=== PATIENT | female | born 1950 | race Caucasian/White ===

== ENCOUNTER 2020-08-11 13:32 | Emergency (ER) | payer MEDICARE, SELFPAY ==
--- NOTE | ~2020-08-11 | XR_ITS ---
XR sacrum coccyx min 2V, XR lumbar spine min 4V 08/11/2020 15:06 Indication: Low back and tailbone pain after fall Procedure: 5 views lumbar spine and 3 views sacrum/coccyx Comparison: No prior studies for comparison. Findings: There is disc narrowing at L2-3, L3-4. There is moderate facet hypertrophy at L4-5 and L5-S 1. There is an age-indeterminate wedge compression fracture of T12. Sacral foramen are symmetric. No sacral fracture is identified. Impression: 1: Age-indeterminate wedge compression fracture of T12. 2: Moderate lumbar spondylosis. Reviewed, dictated and finalized at location A. Impression: 1: Age-indeterminate wedge compression fracture of T12. 2: Moderate lumbar spondylosis. Impression: 1: Age-indeterminate wedge compression fracture of T12. 2: Moderate lumbar spondylosis.
--- NOTE | ~2020-08-11 | CT_ITS ---
EXAMINATION: CT thoracic lumbar wo con DATE: 08/11/2020 15:27 INDICATION: Back pain after injury. TECHNIQUE: Computed tomography (CT) of the thoracic and lumbar spine was performed without intravenou s contrast. The dose-length product was 860.98 mGy-cm. Automated exposure control and iterative recon struction technique were employed. COMPARISON: lumbar spine series dated 08/12/2019 FINDINGS: There is an acute superior endplate compression fracture of T12 with approximately 20% loss of vertebral body height. There is mild additional thoracic and lumbar spondylosis with degenerative retrolisthesis at L2-3. There is moderate facet degenerative change of the mid and lower lumbar spin e. Visualized lung parenchyma is unremarkable. There is atherosclerosis. There are cholecystectomy cl ips. IMPRESSION: 1. Acute superior endplate compression fracture of T12 with approximately 20% loss of vertebral body height anteriorly. 2: Mild-moderate thoracic and lumbar spondylosis. Reviewed, dictated and finalized at location A. IMPRESSION: 1. Acute superior endplate compression fracture of T12 with approximately 20% l oss of vertebral body height anteriorly. 2: Mild-moderate thoracic and lumbar spondylosis.
[2020-08-11 14:19] VITALS: BP 135/72; PULSE 81; RESP 20; TEMP 36.3; O2SAT 98
--- NOTE | 2020-08-11 15:09 | ED.BACK ---
HPI - Back Pain/Injury General Chief Complaint: Back Pain/Injury Stated Complaint: BACK PAIN AFTER FALL Time Seen by Provider: 08/11/20 15:07 Source: patient Mode of arrival: ambulatory Limitations: no limitations History of Present Illness HPI Narrative: Patient is a 70-year-old female complaining of mid and lower back pain, 10 out of 10, dull, nonradiating, after she fell off her lawnmower while trying to get on it today. Patient states that she missed a step and she fell backwards. Patient denies any head, neck, chest, abdomen, hip or any extremity pain/injury. Denies any weakness or numbness. Denies any incontinence. Related Data Allergies Allergy/AdvReac Type Severity Reaction Status Date / Time No Known Allergies Allergy Verified 08/11/20 15:42 Review of Systems Review of Systems: All systems reviewed & are unremarkable except as noted in HPI and below Constitutional: Constitutional: Denies body ache(s), Denies chills, Denies excessive sweating, Denies fatigue, Denies fever(s), Denies headache(s), Denies lethargy, Denies malaise, Denies weakness and Denies weight loss Eyes: Eyes: Denies blurry vision, Denies change in vision and Denies loss of vision ENT: Denies dizziness, Denies ear discharge, Denies headache(s), Denies lip swelling, Denies epistaxis, Denies nasal congestion, Denies neck pain, Denies throat swelling and Denies tongue swelling Cardiovascular: Cardiovascular: Denies chest pain, Denies chest pain at rest, Denies chest pain with activity, Denies diaphoresis, Denies rapid heart rate, Denies edema, Denies irregular heart rhythm, Denies lightheadedness, Denies palpitations, Denies dyspnea and Denies dyspnea on exertion Respiratory: Respiratory: Denies chest congestion, Denies cough, Denies hemoptysis, Denies dyspnea and Denies dyspnea on exertion Gastrointestinal: Gastrointestinal: Denies abdominal pain, Denies melena, Denies hematochezia, Denies diarrhea, Denies nausea, Denies vomiting and Denies hematemesis Musculoskeletal: Musculoskeletal: Denies abnormal gait, Denies deformity, Denies joint swelling, Denies limited range of motion, Denies neck pain and Denies numbness Neurologic: Denies Abnormal speech present, Denies abnormal gait, Denies confusion, Denies dizziness, Denies headache(s), Denies focal weakness, Denies loss of vision, Denies numbness, Denies Other visual disturbances, Denies Sensory deficit (Neuro) and Denies weakness Psychiatric: Psychiatric: Denies confusion, Denies depression, Denies auditory hallucinations, Denies homicidal ideation and Denies suicidal ideation Endocrine: Endocrine: Denies cold intolerance, Denies excessive sweating, Denies fatigue, Denies heat intolerance and Denies palpitations Hematologic/Lymphatic: Hematologic/Lymphatic: Denies easy bleeding and Denies easy bruising Allergic/Immunologic: Allergic/Immunologic: Denies lip swelling, Denies throat swelling and Denies tongue swelling PMFSH Social History Social History Gender identity (if verbalized by the patient): Female Comments Past medical history: Hypertension, arthritis Family history: Non contributory Social history: Non-smoker no EtOH use, lives at home Exam Const: General: cooperative, healthy appearing, comfortable, no acute distress, well developed, alert and awake; No confusion Orientation/consciousness: oriented to person, oriented to place, oriented to time, patient oriented x3 and No confusion Limitations: no limitations HENMT: Head: normal to inspection, normocephalic and atraumatic Ears: hearing grossly normal bilaterally, TM normal on the right and TM normal on the left General nose exam: Normal external nose present, Normal nares present and No nasal discharge present Face and sinus: normal facial exam Mouth: Yes Normal oral and palatal mucosa present, Yes lip normal, Yes tongue normal and Yes oropharynx normal Throat: posterior oropharynx normal, tonsils normal and uvula midline Eyes: Ge
--- NOTE | 2020-08-11 15:21 | PC.NURSE ---
Pt in CT scan at this time.
[2020-08-11 15:34] VITALS: BP 149/66; PULSE 67; RESP 17; O2SAT 99
[2020-08-11] MEDS: diazePAM INJ (*CRX) 10 MG/2 ML SYRINGE 5 MG IM (15:40)
[2020-08-11] MEDS: KETOROLAC 30 MG/ML VIAL (*BKC) IM (15:40)
[2020-08-11] MEDS: HYDROmorphone HCL INJ (*CRX) 1 MG/ML SYR IM (15:40)
[2020-08-11 16:18] VITALS: BP 115/52; PULSE 65; RESP 17; O2SAT 93
[2020-08-11 17:12] VITALS: BP 136/64; PULSE 61; RESP 15; O2SAT 93
--- NOTE | 2020-08-11 18:00 | PC.NURSE ---
[facility] cancelled by s crew that arrived at ED - Truck has mechanical issues [facility] called accepted transfer to [facility] ETA 1hr Trip # [id number]
[2020-08-11 18:21] VITALS: BP 131/55; PULSE 64; RESP 15; O2SAT 94
--- NOTE | 2020-08-11 18:26 | PC.NURSE ---
New ETA for is 193
== END 2020-08-11 19:54 | disposition short-term general hospital (02) ==
PROVIDERS: Emergency Provider Emergency Medicine; PCP Internal Medicine
DX: S22.088A Other fracture of T11-T12 vertebra, initial encounter for closed fracture (principal); I10 Essential (primary) hypertension; M19.90 Unspecified osteoarthritis, unspecified site; M47.814 Spondylosis without myelopathy or radiculopathy, thoracic region; M47.816 Spondylosis without myelopathy or radiculopathy, lumbar region; W17.89XA Other fall from one level to another, initial encounter
CPT/HCPCS: 72110; 72128; 72131; 72220; 96372; 99284; 99285; J1170; J1885; J3360

== ENCOUNTER 2021-10-06 12:07 | Emergency (ER) | payer MEDICARE, SELFPAY ==
[2021-10-06 12:15] VITALS: BP 149/62; PULSE 64; RESP 18; TEMP 36.2; O2SAT 100
--- NOTE | 2021-10-06 12:27 | ED.SKABFB ---
HPI - Skin/Abscess/Foreign Bdy General Chief complaint: Skin/Abscess/Foreign Body Stated complaint: Insect Bite Rt Hand, Swelling, Pain,Itching Time Seen by Provider: 10/06/21 12:25 Source: patient, RN notes reviewed and old records reviewed Mode of arrival: ambulatory Limitations: no limitations History of Present Illness HPI narrative: 71-year-old female who presents to [facility] with complaints of wasp sting to her right hand which occurred on Tuesday. Patient has red inflamed tissue to dorsal right hand and wrist area which is warm to touch and is itchy. Patient states initially she made a paste of baking soda and water and applied to sting area on distal right middle finger. She reports that she has been applying hydrocortisone ointment to red inflamed tissue and has been taking Ibuprofen for her discomfort. Patient has not taken any Benadryl for the itching. Patient denies any trouble with her swallowing or with her breathing. MD complaint: insect bite/sting (wasp sting) Onset (ago): day(s) (2) Treatments prior to arrival: other (hydrocortisone and Ibuprofen) Related Data Home Medications Medication Instructions Recorded Confirmed lisinopril 20 mg tablet 20 mg DAILY 10/06/21 10/06/21 Allergies Allergy/AdvReac Type Severity Reaction Status Date / Time No Known Allergies Allergy Verified 10/06/21 12:23 Review of Systems Review of Systems: CONSTITUTIONAL: Denies fever, chills, or sweats. EYES: Denies visual changes, redness, or discharge. ENT: Denies rhinorrhea, congestion, sore throat, or otalgia. CARDIOVASCULAR: Denies chest pain, palpitations, or edema. RESPIRATORY: Denies cough or dyspnea. GASTROINTESTINAL: Denies abdominal pain, nausea, vomiting, or diarrhea. GENITOURINARY: Denies dysuria or hematuria. SKIN: Positive for redness, swelling and warmth to dorsal aspect of right hand and wrist with itching MUSCULOSKELETAL: Denies back pain, joint pain, or myalgia. NEUROLOGIC: Denies headache, numbness, or weakness. PSYCHIATRIC: Denies anxiety or depression. All systems reviewed & are unremarkable except as noted in HPI and below PMFSH Past Medical History Medical History (Updated 10/06/21 @ 13:57 by Kari Hernandez NP) Fracture of left elbow Hypertension Surgical History Surgical History (Updated 10/06/21 @ 13:58 by Kari Hernandez NP) H/O shoulder surgery right H/O Spinal surgery H/O: hysterectomy Social History Social History (Updated 10/06/21 @ 14:00 by Kari Hernandez NP) Smoking status: Never smoker Alcohol intake: current Alcohol use details: social Substance use type: does not use Living arrangements: with family Gender identity (if verbalized by the patient): Female Comments At time of signature, agree with nursing past medical, surgical, social and family history. There is no relevant family history pertinent to the presenting complaint Exam Narrative: GENERAL: Well-appearing, well-nourished, and in no acute distress.anxious HEAD: Normocephalic, atraumatic. EYES: PERRLA and EOMI. ENT: Nares clear, no rhinorrhea or epistaxis. Mucous membranes moist.TM's normal with good light reflex, throat pink with no lesions exudates or tonsil enlargment. NECK: Supple. no lymphadenopathy CHEST: Clear to auscultation. No respiratory distress.SAO2 100% on room air.no tachypnea noted HEART: Regular rate and rhythm. No murmur heard. Normal peripheral pulses. ABDOMEN: Soft, nontender, nondistended, normal active bowel sounds. EXTREMITIES: Normal range of motion. No edema. SKIN: Warm, dry, red swollen tissue to dorsal right hand extending from the distal fingers to tissue above wrist. Patient reports that hand feels tight with warmth and is itching. Patient has adequate circulation and sensation to right hand with strong right radial pulse. NEURO: No focal deficits. Alert and oriented x3. Course Course Level of Care: Express Care Visit Vital Signs Vital signs: Vital Signs Tem
== END 2021-10-06 13:00 | disposition home or self-care (01) ==
PROVIDERS: Emergency Provider Registered Nurse
DX: L03.113 Cellulitis of right upper limb (principal); T63.461A Toxic effect of venom of wasps, accidental (unintentional), initial encounter; I10 Essential (primary) hypertension
CPT/HCPCS: 99213; G0463

== ENCOUNTER 2022-01-24 11:57 | Emergency (ER) | payer MEDICARE, SELFPAY ==
--- NOTE | ~2022-01-24 | XR_ITS ---
EXAMINATION: XR chest 2V DATE: 01/24/2022 13:39 INDICATION: Cough and wheezing TECHNIQUE: PA and lateral views of the chest are obtained. COMPARISON: None available FINDINGS: The lungs are free of acute opacities. No pleural effusion or pneumothorax. The cardiomedia stinal silhouette is normal. There is moderate thoracic spondylosis. There is vertebroplasty change a t T12. Surgical clips in the right upper quadrant are likely from prior cholecystectomy. IMPRESSION: 1. No acute cardiopulmonary abnormality. Reviewed, dictated and finalized at location A. 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
[2022-01-24 12:57] VITALS: BP 124/69; PULSE 86; RESP 18; TEMP 36.6; O2SAT 97
--- NOTE | 2022-01-24 13:33 | ED.URI ---
HPI - URI/Sore Throat General Chief Complaint: Unspecified Stated Complaint: throat pain and swelling Source: patient Mode of arrival: ambulatory Limitations: no limitations History of Present Illness HPI Narrative: 71-year-old female presents to [facility] complaints of cold-like symptoms including cough, congestion and runny nose over the past week. Patient reports that she feels like the symptoms are improving 2 days ago but then noticed lymph node swelling to her neck region yesterday. Patient has not tried taking any [id number] medications for her symptoms. patient's recently had similar cold-like symptoms. MD elicited complaint: cough Onset (ago): week(s) (1) Able to tolerate fluids by mouth: Yes Treatments prior to arrival: none Related Data Home Medications Medication Instructions Recorded Confirmed lisinopril 20 mg tablet 20 mg DAILY 10/06/21 01/24/22 celecoxib 200 mg capsule 200 mg DAILY 01/24/22 01/24/22 Allergies Allergy/AdvReac Type Severity Reaction Status Date / Time No Known Allergies Allergy Verified 01/24/22 13:28 Review of Systems Constitutional: Constitutional: Denies chills, Denies fatigue, Denies fever(s) and Denies weakness ENT: Reports nasal congestion Comments: Runny nose, lymphadenopathy Cardiovascular: Cardiovascular: Denies chest pain Respiratory: Respiratory: Reports cough, Denies dyspnea and Denies wheezing Gastrointestinal: Gastrointestinal: Denies diarrhea, Denies nausea and Denies vomiting Integumentary/Breasts: Skin/Breast: Denies rash Allergic/Immunologic: Allergic/Immunologic: Denies throat swelling and Denies tongue swelling PMFSH Past Medical History Medical History Fracture of left elbow Hypertension Surgical History Surgical History H/O shoulder surgery right H/O Spinal surgery H/O: hysterectomy Social History Social History Smoking status: Never smoker Alcohol intake: current Alcohol use details: social Substance use type: does not use Gender identity (if verbalized by the patient): Female Comments At time of signature, I agree with nursing past medical, surgical, social and family history. There is no relevant family history pertinent to the presenting complaint. Exam Const: General: healthy appearing Nutritional Appearance: well nourished Orientation/consciousness: patient oriented x3 Limitations: no limitations HENMT: Face/Nose/Sinus: Normal external nose present Face and sinus: normal facial exam Mouth: Yes Normal oral and palatal mucosa present, Yes lip normal and Yes moist mucous membranes Throat: uvula midline Other: Anterior cervical lymphadenopathy noted Eyes: Conjunctivae: conjunctivae normal Neck: Neck: normal visual inspection and lymphadenopathy bilateral anterior cervical soft and tender Resp: Effort & Inspection: normal respiratory effort and not labored Auscultation: clear to auscultation bilaterally, no crackles, no rales and no rhonchi Cardio: Rate: regular rate Rhythm: regular rhythm Heart sounds: no murmurs Skin: General skin exam: normal color Rashes: no rashes Wounds: no wounds Neuro: General: patient oriented x3 Psych: Affect: normal affect Attitude: cooperative Course Course Level of Care: Express Care Visit Vital Signs Vital signs: Vital Signs Temperature 36.6 C 01/24/22 12:57 Pulse Rate 86 01/24/22 12:57 Respiratory Rate 18 01/24/22 12:57 Blood Pressure 124/69 01/24/22 12:57 Pulse Oximetry 97 01/24/22 12:57 Oxygen Delivery Room Air 01/24/22 12:57 Temperature 36.6 C 01/24/22 12:57 Pulse Rate 86 01/24/22 12:57 Respiratory Rate 18 01/24/22 12:57 Blood Pressure 124/69 01/24/22 12:57 Pulse Oximetry 97 01/24/22 12:57 Oxygen Delivery Room Air 01/24/22 12:57 MDM
== END 2022-01-24 14:26 | disposition home or self-care (01) ==
PROVIDERS: Emergency Provider Nurse Practitioner Family
DX: R59.1 Generalized enlarged lymph nodes (principal); I10 Essential (primary) hypertension
CPT/HCPCS: 71046; 99213; G0463

== ENCOUNTER 2022-09-03 14:30 | Emergency (ER) | payer MEDICARE, SELFPAY ==
--- NOTE | ~2022-09-03 | XR_ITS ---
XR lumbar spine 2-3V 09/03/2022 15:27 Indication: Low back pain for 3 weeks Procedure: 3 views lumbar spine Comparison: 08/11/2020 Findings: There is a wedge compression fracture of T12 treated with vertebroplasty. There is disc radha rowing at all lumbar levels. There is facet hypertrophy at L4-5 and L5-S1. There is degenerative retr olisthesis at L2-3. No acute fracture or traumatic malalignment. Impression: 1: Moderate-severe lumbar spondylosis. 2: Chronic wedge compression fracture of T12 treated with vertebroplasty. Reviewed, dictated and finalized at location [] Impression: 1: Moderate-severe lumbar spondylosis. 2: Chronic wedge compression fracture of T12 treated with vertebroplasty.
--- NOTE | ~2022-09-03 | XR_ITS ---
XR hip RT min 2V 09/03/2022 15:27 Indication: Right hip pain. Procedure: 3 views right hip Comparison: 05/14/2018 Findings: There is mild osteoarthritis of the right hip. No fracture, subluxation or dislocation. No significant soft tissue abnormality. No foreign bodies. Impression: 1: Mild osteoarthritis of the right hip. Reviewed, dictated and finalized at location [] Impression: 1: Mild osteoarthritis of the right hip.
[2022-09-03 14:52] VITALS: BP 122/88; PULSE 63; RESP 18; TEMP 36.7; O2SAT 100
--- NOTE | 2022-09-03 14:57 | ED.SKABFB ---
HPI - Skin/Abscess/Foreign Bdy General Chief complaint: Skin/Abscess/Foreign Body Stated complaint: skin irritation Time Seen by Provider: 09/03/22 14:57 Source: patient Mode of arrival: ambulatory Limitations: no limitations History of Present Illness HPI narrative: 72 yo F presents stating she had a test done by a provider that came to her house through [employer] insurance. states that he put a device on her fingers and toes and some readings were low. she recieved a letter that she may have peripheral vascular disease and should see her PCP for further evaluation. states that it is hard to get into her PCP so she called community health for a new one. when the [employer] person could not find a doctor for her to be seen by they told her to go to urgent care. Pt is not having any numbness/weakness, color or temp change to any of her extremities. Amublatory with steady gait. Does report though that she has been having R low back pain with radiation to R buttock and thigh. All systems reviewed and negative except as noted above. Related Data Home Medications Medication Instructions Recorded Confirmed lisinopril 20 mg tablet 20 mg DAILY 10/06/21 09/03/22 celecoxib 200 mg capsule 200 mg DAILY 01/24/22 09/03/22 cholecalciferol (vitamin D3) 25 25 mcg PO DAILY 09/03/22 09/03/22 mcg (1,000 unit) tablet diclofenac sodium 75 mg 75 mg PO BID PRN Pain 09/03/22 09/03/22 tablet,delayed release Allergies Allergy/AdvReac Type Severity Reaction Status Date / Time No Known Allergies Allergy Verified 09/03/22 15:16 Review of Systems Review of Systems: CONSTITUTIONAL: Denies fever, chills, or sweats. EYES: Denies visual changes, redness, or discharge. ENT: Denies rhinorrhea, congestion, sore throat, or otalgia. CARDIOVASCULAR: Denies chest pain, palpitations, or edema. RESPIRATORY: Denies cough or dyspnea. GASTROINTESTINAL: Denies abdominal pain, nausea, vomiting, or diarrhea. GENITOURINARY: Denies dysuria or hematuria. SKIN: Denies rash or itching. MUSCULOSKELETAL:Reports right-sided low back pain with radiation to right buttock and right thigh. NEUROLOGIC: Denies headache, numbness, or weakness. PSYCHIATRIC: Denies anxiety or depression. All other systems reviewed are negative, except as documented in HPI. [facility] Past Medical History Medical History Fracture of left elbow Hypertension Surgical History Surgical History H/O shoulder surgery right H/O Spinal surgery H/O: hysterectomy Social History Social History Smoking status: Never smoker Alcohol intake: current Alcohol use details: social Substance use type: does not use Living arrangements: with family Gender identity (if verbalized by the patient): Female Comments At time of signature, agree with nursing past medical, surgical, social and family history. There is no relevant family history pertinent to the presenting complaint. Exam Narrative: GENERAL: This is a well-nourished, well-developed patient, in no apparent distress. HEAD: normocephalic, atraumatic. EYES: PERRL. Sclera clear/white. Vision is grossly intact. EARS: External ears normal NOSE: External nose normal NECK: Neck supple, non-tender without lymphadenopathy, masses or thyromegaly. CARDIOVASCULAR: Regular rate and rhythm without murmurs, gallops, or rubs. RESPIRATORY: Clear to auscultation. Breath sounds equal bilaterally. No wheezes, rales, or rhonchi. SKIN: warm, Dry, intact with no suspicious lesions or rash, good texture and turgor. NEURO: awake, alert, and oriented to person, place and time. There were no obvious focal neurologic abnormalities. EXTREMITIES: No joint tenderness, effusion, or edema noted. l DP 2+bilateral BACK: Nontender without deformity. Right SI joint tenderness. Positive right straight leg raise. Lower e
== END 2022-09-03 15:56 | disposition home or self-care (01) ==
PROVIDERS: Emergency Provider Nurse Practitioner Family
DX: M54.41 Lumbago with sciatica, right side (principal); I10 Essential (primary) hypertension
CPT/HCPCS: 72100; 73502; 99214; G0463

== ENCOUNTER → 2022-11-02 12:42 | Outpatient (CLI) | payer MEDICARE, SELFPAY ==
--- NOTE | ~2022-11-02 | US_ITS ---
EXAMINATION: US retroperitoneal comp DATE: 11/02/2022 13:02 INDICATION: Abnormal kidney function tests TECHNIQUE: Multiple grayscale and Doppler ultrasound images of the kidneys were obtained. COMPARISON: None. FINDINGS: The right kidney measures 7.5 x 4.0 x 4.2 cm. The left kidney measures 8.8 x 3.4 x 4.3 cm. The kidneys demonstrate normal parenchymal echogenicity. There is cortical thinning of the kidneys. T here is no hydronephrosis. The bladder is normal. IMPRESSION: 1. Mild atrophy of the kidneys without hydronephrosis. Reviewed, dictated and finalized at location A.
== END ==
DX: R94.4 Abnormal results of kidney function studies (principal); N26.1 Atrophy of kidney (terminal)
CPT/HCPCS: 76770

== ENCOUNTER 2022-11-16 12:36 | Outpatient (CLI) | payer MEDICARE, SELFPAY ==
[2022-11-16 19:32] LABS: Anion Gap 9 mmol/L (8-16); Blood Urea Nitrogen 26 mg/dL (7-17); Calcium 9.5 mg/dL (8.4-10.2); Carbon Dioxide 29 mmol/L (22-30); Chloride 99 mmol/L (98-107); Estimated Glomerular Filt Rate 26; Glucose 96 mg/dL (65-110); Potassium 4.7 mmol/L (3.4-5.0); Sodium 137 mmol/L (137-145)
== END 2022-11-16 12:37 | disposition home or self-care (01) ==
PROVIDERS: PCP Emergency Medicine; Visit Provider Emergency Medicine
DX: M25.551 Pain in right hip (principal); I10 Essential (primary) hypertension
CPT/HCPCS: 36415; 80048

== ENCOUNTER → 2022-11-23 11:12 | Outpatient (CLI) | payer MEDICARE, SELFPAY ==
--- NOTE | ~2022-11-23 | MR_ITS ---
MRI of the right hip Clinical history: Pain Technique: Coronal T1-weighted, T2-weighted, and proton-density fat-sat images, and axial T1-weighted and proton-density fat-sat images were acquired through the pelvis. Coronal T2-weighted images and c oronal, axial, and sagittal proton-density fat-sat images were acquired through the right hip. Findings: There is no acute fracture or avascular necrosis of either hip. There is extensive high-gra de chondromalacia the right hip joint. There is extensive amorphous marrow edema in the superior aspe ct of the right femoral head. Moderate to large right hip joint effusion is present, nonspecific. The re is probable mild diffuse chondromalacia the left hip joint. No left hip joint effusion. Evaluation for labral tear is limited due to motion artifact. Visualized musculature about the pelvis and right hip is unremarkable. No muscle atrophy or edema clive ntified. No soft tissue mass or other fluid collection identified. No evidence for bursitis. IMPRESSION: Marrow edema in the right femoral head is presumably reactive due to underlying moderate degenerative joint disease. No fracture or avascular necrosis identified. Moderate to large right hip joint effusion, nonspecific. Consider joint aspiration as indicated, lexis cially if there is any suspicion for septic arthritis. Reviewed, dictated and finalized at location . IMPRESSION: Marrow edema in the right femoral head is presumably reactive due to underlying moderate degenerative joint disease. No fracture or avascular necrosis identif ied. Moderate to large right hip joint effusion, nonspecific. Consider joint aspirat ion as indicated, especially if there is any suspicion for septic arthritis.
== END ==
PROVIDERS: PCP Emergency Medicine; Visit Provider Emergency Medicine
DX: M25.451 Effusion, right hip (principal); R60.0 Localized edema
CPT/HCPCS: 73721

== ENCOUNTER 2023-02-17 11:58 | Outpatient (CLI) | payer MEDICARE, SELFPAY ==
[2023-02-17 20:15] LABS: Anion Gap 7 mmol/L (8-16); Blood Urea Nitrogen 22 mg/dL (7-17); Carbon Dioxide 25 mmol/L (22-30); Chloride 101 mmol/L (98-107); Estimated Glomerular Filt Rate 32; Glucose 101 mg/dL (65-110); Potassium 4.9 mmol/L (3.4-5.0); Sodium 133 mmol/L (137-145)
== END 2023-02-17 11:59 | disposition home or self-care (01) ==
PROVIDERS: PCP Emergency Medicine; Visit Provider Internal Medicine Nephrology
DX: N18.4 Chronic kidney disease, stage 4 (severe) (principal)
CPT/HCPCS: 36415; 80069

== ENCOUNTER 2023-03-09 12:28 | Outpatient (CLI) | payer MEDICARE, SELFPAY ==
--- NOTE | 2023-03-09 12:48 | ECG_ITS ---
Measurements Intervals [place] Rate: 70 P: 69 [place]: 158 QRS: 9 QRSD: 78 T: 35 QT: 375 QTc: 407 Interpretive Statements SINUS RHYTHM NO PREVIOUS ECG AVAILABLE FOR COMPARISON Electronically Signed On 03-09-2023 21:03:47 MANAGER MSW by Chelsea Mckeon M.D.
== END 2023-03-09 12:29 | disposition home or self-care (01) ==
LOC: ANHLAB 12:31 → ANHCARD 12:31
PROVIDERS: PCP Emergency Medicine; Visit Provider Orthopaedic Surgery
DX: I10 Essential (primary) hypertension (principal)
CPT/HCPCS: 93005

== ENCOUNTER 2023-05-11 10:07 | Outpatient (CLI) | payer MEDICARE, SELFPAY ==
[2023-05-11 12:25] LABS: Basophils Absolute Auto 0.1 K/mm3 (0.0-0.1); Basophils Percent Auto 0.9 % (0.2-1.2); Eosinophils Absolute Auto 0.1 K/mm3 (0-0.3); Eosinophils Percent Auto 1.4 % (0-4.4); Hematocrit 38.4 % (37.0-47.0); Immature Granulocyte Absolute 0.04 K/mm3 (0.00-0.031); Immature Granulocyte Percent A 0.6 % (0-0.5); Lymphocytes Absolute Auto 0.88 K/mm3 (0.9-3.2); Lymphocytes Percent Auto 13.3 % (18.3-44.2); Mean Corpuscular HGB Conc 31.3 g/dl (32-36); Mean Corpuscular Hemoglobin 31.2 pg (26-34); Mean Corpuscular Volume 99.7 fl (80-100); Mean Platelet Volume 9.2 fl (7.4-10.4); Monocytes Absolute Auto 0.4 K/mm3 (0.1-0.6); Monocytes Percent Auto 6.5 % (2.6-8.5); Neutrophils Absolute Auto 5.1 K/mm3 (1.3-6.7); Neutrophils Percent Auto 77.3 % (45.5-73.1); Platelet Count Result 308 k/mm3 (150-375); Red Blood Count 3.85 M/mm3 (4.2-5.4); Red Cell Distribution Width 12.4 % (11.5-14.5); White Blood Count 6.6 K/mm3 (4.5-10.0)
[2023-05-11 12:33] LABS: Albumin Level 4.1 g/dL (3.5-5.1)
[2023-05-11 12:36] LABS: Anion Gap 5 mmol/L (8-16); Blood Urea Nitrogen 16 mg/dL (7-17); Calcium 9.5 mg/dL (8.4-10.2); Carbon Dioxide 27 mmol/L (22-30); Chloride 105 mmol/L (98-107); Estimated Glomerular Filt Rate 44; Glucose 101 mg/dL (65-110); Potassium 4.6 mmol/L (3.4-5.0); Sodium 137 mmol/L (137-145)
[2023-05-11 12:39] LABS: Urine Cotinine NEGATIVE
[2023-05-11 12:39] LABS: INR 0.9; Prothrombin Time 12.5 Seconds (11.1-14.7)
[2023-05-11 12:40] LABS: Partial Thromboplastin Time 31.1 SECONDS (22.3-36.8)
[2023-05-11 12:51] LABS: Hemoglobin A1C 5.2 % (<5.7)
[2023-05-11 14:30] LABS: MRSA (PCR) NOT DETECTED (NOT DETECTE)
== END 2023-05-11 10:08 | disposition home or self-care (01) ==
LOC: ANHSURGERY 10:15
PROVIDERS: Anesthesiology; PCP Emergency Medicine; Visit Provider Orthopaedic Surgery
DX: Z01.818 Encounter for other preprocedural examination (principal); M16.11 Unilateral primary osteoarthritis, right hip; N18.4 Chronic kidney disease, stage 4 (severe)
CPT/HCPCS: 36415; 80048; 80307; 82040; 83036; 85025; 85610; 85730; 87641

== ENCOUNTER 2023-06-08 15:40 | Observation (INO) | payer MEDICARE, SELFPAY ==
[2023-05-11 10:33] VITALS: BP 129/67; PULSE 72; RESP 16; TEMP 36.6; O2SAT 95; BMI 27.1
--- NOTE | 2023-05-11 10:52 | PC.NURSE ---
Report to the Outpatient Waiting Room, entrance under the green pavilion located off [facility], at time __6:00AM on date ___06/07/23____. Planned Procedure Time: __7:30AM . Time changes happen often and if your time is changed the preop area will call you the afternoon before. - You and your visitor will be asked to self-screen and do not enter if you have any COVID symptoms. - A mask is optional within the hospital at this time. Patients may have clear liquids (water, carbonated beverages, clear teas, apple juice) until 3 hours prior to surgery with a maximum of 20 ounces. - No food from midnight until time of surgery. Take the following medications with a SIP of water the morning of surgery: ___HYDROCODONE NEEDED FOR PAIN DO NOT STOP ANY OF YOUR OTHER PRESCRIPTION MEDICATIONS PRIOR TO SURGERY ?EXCEPT THE FOLLOWING Medications to discontinue per physician HOLD ALL VITAMINS/SUPPLEMENTS 3 DAYS PRE-OP PER ANESTHESIA Date to take last dose 06/03/23 Please no make-up, nail senegalese, hairspray, perfume, deodorant, or body powder the day of surgery. No jewelry (including any body piercings) or valuables the day of surgery, leave them at home. Please take a shower or bath the night before, or the morning of, surgery with an antibacterial soap. Wear comfortable, loose fitting clothing. - Jewelry must be removed prior to entering the operating room. Rings and piercings that are not removed may be cut off. - The hospital will not accept responsibility for valuables. - Please leave all valuables, including medications, at home the day of surgery. If you are going home after surgery, a licensed independent driver must drive you home. - NO public transportation without another adult if you receive anesthesia. - We recommend that an adult stay with you for 24 hours following discharge. - We also recommend that you do not drive, make important decision, drink alcoholic beverages, or take any drugs that were not prescribed by your health care provider for at least 24 hours after your discharge time. Follow any additional instructions given to you from your surgeon. If you or anyone in your household have experienced Covid symptoms in the past week, please notify your surgeon or the nurse liaison at the phone number below for possible testing. Telephone instructions given to ____PATIENT and asked if any additional questions and then verbalized understanding. Patient advised to call surgeon office or pre surgery nurse liaison [phone] if any additional questions.
[2023-06-07] VITALS (13 sets, daily range): BP systolic 131–176; BP diastolic 53–98; PULSE 58–96; RESP 11–20; TEMP 35.4–36.6; O2SAT 92–100
[2023-06-07] MEDS: ACETAMINOPHEN 500 MG TABLET 1000 MG PO ×3 (06:31→17:06)
[2023-06-07] MEDS: LACTATED RINGERS 1,000 ML 30 ML IV CONT ×2 (06:35→09:30)
--- NOTE | 2023-06-07 07:05 | WPDANESEPPF ---
Anes - Initial Pre Proc Eval Procedure: Operation Date: 06/07/23 07:30 Proposed Procedures p Right Total Hip Arthroplasty - Paxton Porter MD Date/Time: 06/07/23 07:05 Surgeon: Paxton Porter MD Pre Op Diagnosis: primary oa right hip Patient Data Age: 73 Gender: F Height: 1.51 m Weight: 62.8 kg Last Vital Signs Temp 36.4 C 06/07/23 06:08 Pulse 90 06/07/23 06:08 Resp 20 06/07/23 06:08 BP 145/63 H 06/07/23 06:08 Pulse Ox 97 06/07/23 06:08 O2 Del Method Room Air 06/07/23 06:08 Allergies Allergy/AdvReac Type Severity Reaction Status Date / Time No Known Allergies Allergy Verified 06/03/23 14:39 Home Medications Medication Instructions Recorded Confirmed Type hydrocodone 5 mg-acetaminophen 325 1 tablet PO Q8H PRN pain #30 tabs 03/15/23 06/07/23 Rx mg tablet biotin 2,500 mcg tablet 2,500 mcg PO DAILY 05/11/23 06/07/23 History tramadol 50 mg tablet 50 mg PO Q12H PRN pain #30 tabs 05/12/23 06/07/23 Rx celecoxib 50 mg capsule (Celebrex) 50 mg PO BID #180 caps 06/03/23 06/07/23 Rx cyclobenzaprine 5 mg tablet 5 mg PO BID PRN muscle spasm #30 06/03/23 06/07/23 Rx tabs lisinopril 20 mg tablet 20 mg PO QAM #90 tabs 06/03/23 06/07/23 Rx Patient hx anesthesia problems: none Family hx anesthesia problems: none Results Review: All pre-operative results and documents have been reviewed as part of the pre-operative evaluation. [facility] Past Medical History Medical History (Updated 06/07/23 @ 07:06 by Skip Navarrete MD) Fracture of left elbow Hypertension Stage 3b chronic kidney disease Surgical History Surgical History H/O shoulder surgery right H/O Spinal surgery H/O: hysterectomy Social History Social History Smoking packs per day: 0.5 Smoking cigarettes per day: 10.0 Years smoked: 16 Smoking pack-years: 8.00 Smoking status: Former smoker Tobacco type: cigarettes Smoking end date: 09/11/80 Alcohol intake: current Drinks per week: 1 Alcohol use details: social Substance use type: does not use Do You Feel Safe in your Home?: Yes Lack of Transportation: No Lack of Food: Never True Current Housing: I Have Housing Concerned About Future Housing: No Difficulty Paying Gas/Electric Bills: No Difficulty Paying for Meds: Decline to Answer Currently Unemployed: YES Education: High School Diploma/GED Difficulty w/ Childcare or Family Care: No Living arrangements: with family Additional living arrangements comments: [facility] Gender identity (if verbalized by the patient): Female Spiritual care concerns: No Anes - Eval Final PreProcedure Day of Procedure 06/07/23 07:05 Patient weight: overweight Heart: regular rate and rhythm Lungs: clear to auscultation Airway: Mallampati scale class II Neurological: alert and oriented Last oral intake: >/= 8 hours ASA classification: III Emergent: no Anesthetic plan: proceed Anesthesia type and monitoring: general ETT and standard monitoring Results Review: All pre-operative results and documents have been reviewed as part of the pre-operative evaluation. Informed Consent: The patient's anesthetic plan and its attendant risks and benefits were discussed with the patient/family/POA. Questions were solicited and answers provided to the satisfaction of the patient/family/POA.
[2023-06-07] MEDS: TRANEXAMIC ACID 1,000MG/ISO100 1,000 MG/100 ML BAG 200 MG IVPB (07:15)
--- NOTE | 2023-06-07 07:19 | WPDHPUPDATE1 ---
History and Physical Update Update Date/Time: 06/07/23 07:19 History and Physical has been reviewed, including an updated exam of the patient. There are NO changes in the patient's condition. Risks, benefits, and alternatives have been discussed and questions answered. Patient agrees to proceed with procedure.
[2023-06-07] MEDS: ceFAZolin 2 GM/D5W 50 ML 2 GM/50 ML BAG IVPB ×3 (07:23→22:27)
[2023-06-07] MEDS: SODIUM CHLORIDE 0.9% IV 38.7 ML, MORPHINE SULFATE INJ (*CRX) 2 MG, ROPivacaine HCL 1% 2... INFILTRATE (08:11)
--- NOTE | 2023-06-07 09:23 | W.PM.PROC2 ---
Procedure Note - Detailed Date of Procedure 06/07/23 Pre-op Diagnosis Primary oa right hip Post-op Diagnosis Same Procedure Performed Right Total Hip Arthroplasty Surgeon Paxton Porter MD Remarketing Rep Gregoria Rocha PA-C Anesthesia General Findings Good bone quality. Significant acetabular dysplasia. One supplemental screw used in the acetabulum. Press-Fit. Excellent stability. Implant position and size is matched preoperative templating. Description of Procedure The patient was given preoperative antibiotics. A general anesthetic was administered. The patient was carefully placed in the lateral decubitus position on the PEG board. The shoulders and hips were carefully positioned for component and leg length positioning reference. The hip was prepped and draped in the usual sterile fashion. A longitudinal incision was created over the posterior aspect of the greater trochanter. Careful dissection was brought down through the deep fascia with electrocautery. A minimally invasive optimized posterior approach to the hip was performed. The short external rotators and capsule were taken down in an L-shaped capsulotomy. The tissue was tagged for later repair using number 2 high strength suture. The femoral neck was measured and taken in situ. The femoral head was removed. The acetabulum was carefully exposed. The inferior capsule was released. The labrum was resected. The acetabulum was sequentially reamed to the intended cup size. The cup was impacted into position with excellent press-fit. One supplemental screw was placed posterior superiorly. Typical anatomic landmarks, including the bony contact points as well as the inferior transverse acetabular ligament were used to confirm cup positioning with preoperative templating. Attention was turned to the femur, which was carefully exposed. The hip was reamed and then broached sequentially. Excellent press-fit was obtained with the broach. The hip was trialed. Measurements were utilized, including the lesser trochanter as well as the center of the femoral head and the tip of the trochanter, and excellent assessment of the offset and leg lengths were confirmed. The real component was impacted into position. Trialing confirmed appropriate leg length and offset with soft tissue balancing as well apparent feel of the leg, both at the knee and the heel. Soft tissues were assessed using the the iliotibial band. Reduction of the posterior capsule and external rotators were also used as a secondary assessment. The hip was copiously irrigated with pulsatile lavage antibiotic solution periodically throughout the procedure. The real components were then assembled and reduced. The hip was stable throughout typical maneuvers, including extension, external rotation to 70 degrees, the position of sleep as well as flexion to 90 degrees with internal rotation past 35 degrees. The shake test confirmed stability without impingement. Osteophytes were removed as necessary. The short external rotators and capsule were repaired back to the posterior trochanter through drill holes. The deep fascia was repaired with running number 2 barbed suture, followed by 2-0 Stratafix suture and 3-0 Stratafix suture in the dermis. Steri-Strips were placed on the skin, followed by a sterile occlusive dressing. There were no complications. Meticulous hemostasis was maintained with the AquaMantys device. The patient was brought to the recovery room in stable condition. There were no complications. Physician application assistant, Gregoria Rocha PA-C, required for surgery; including patient positioning, draping, tissue retraction, maintaining instrument position, hip dislocation/ relocation, wound closure, and dressing placement. Implants The Accolade II hip stem, 132 degree size 3 , was utilized with excellent press-fit. The 48 mm Trident II acetabular component was impacted with excellent press-fit stability. Standard polyethylene
[2023-06-07] MEDS: fentaNYL CITRATE INJ (*CRX) 100 MCG/2 ML VIAL 25 MCG IV PUSH ×3 (09:50→10:18)
--- NOTE | 2023-06-07 11:15 | ADMGEN ---
This patient, Annia Larsen, was admitted to 3 [facility] Surg Room 302-01. Patient/family oriented to hospital policies and general routines including ID bracelet, bed and alarms, visiting hours, pain management, procedures, bathroom and other care routines, personal items, smoking policy, room service/diet, and visiting hours. Information on how to activate the Rapid Response Team has been discussed. Patient/Family are encouraged to report perceived risks to care and to ask questions if they do not understand what they are told or what they should do.
[2023-06-07] MEDS: oxyCODONE HCL (*CRX) 5 MG TAB IR 10 MG PO (11:23)
[2023-06-07] MEDS: SODIUM CHLORIDE 0.9% IV 1,000 ML 125 ML IV CONT (11:28)
--- NOTE | 2023-06-07 12:24 | PC.NURSE ---
Spoke with Gregoria Shen regarding patient's c/o 9/10 pain and had to dopplar pulse and foot cool to touch. Patient is having a hard time straighting her right leg. Gregoria will be up to see patient.
[2023-06-07] MEDS: HYDROmorphone HCL INJ (*CRX) 1 MG/ML SYR 0.5 MG IV PUSH ×2 (14:00→17:06)
[2023-06-07] MEDS: SENNA/DOCUSATE SODIUM TABLET 2 TAB PO (17:04)
[2023-06-07] MEDS: ASPIRIN 81 MG ENTERIC TABLET PO (17:04)
[2023-06-07] MEDS: FAMOTIDINE 20 MG TABLET PO (20:30)
[2023-06-07] MEDS: oxyCODONE HCL (*CRX) 5 MG TAB IR PO (20:30)
[2023-06-07] MEDS: CYCLOBENZAPRINE HCL 10 MG TABLET PO (20:30)
--- NOTE | ~2023-06-08 | XR_ITS ---
EXAMINATION: XR hip RT min 2V DATE: 06/07/2023 09:46 INDICATION: Right total hip arthroplasty TECHNIQUE: 2 views right hip FINDINGS: There is a right total hip arthroplasty in expected position. Subcutaneous gas with soft t issue swelling are consistent with recent surgery. IMPRESSION: 1. Recent right total hip arthroplasty. Reviewed, dictated and finalized at location L.
--- NOTE | ~2023-06-08 | XR_ITS ---
XR hip RT 2V w AP pelvis 06/07/2023 14:26 Indication: Right hip pain after recent hip arthroplasty Procedure: 3 views right hip including AP pelvis Comparison: 06/07/2023 Findings: Status post recent right total hip arthroplasty. Prosthesis well seated. No fracture or tra umatic malalignment. There are expected postoperative changes in the overlying soft tissues. Impression: 1: No acute bone or joint abnormality. Reviewed, dictated and finalized at location L. Impression: 1: No acute bone or joint abnormality.
[2023-06-08] MEDS: HYDROmorphone HCL INJ (*CRX) 1 MG/ML SYR 0.5 MG IV PUSH (03:21)
[2023-06-08 04:14] VITALS: BP 130/75; PULSE 76; RESP 16; TEMP 36.2; O2SAT 100
[2023-06-08] MEDS: ACETAMINOPHEN 500 MG TABLET 1000 MG PO ×3 (06:11→17:07)
[2023-06-08] MEDS: ceFAZolin 2 GM/D5W 50 ML 2 GM/50 ML BAG IVPB (06:11)
[2023-06-08 07:41] LABS: Basophils Absolute Auto 0.1 K/mm3 (0.0-0.1); Basophils Percent Auto 0.6 % (0.2-1.2); Eosinophils Absolute Auto 0.1 K/mm3 (0-0.3); Hematocrit 33.9 % (37.0-47.0); Hemoglobin 10.5 g/dL (12.0-15.0); Immature Granulocyte Absolute 0.02 K/mm3 (0.00-0.031); Immature Granulocyte Percent A 0.3 % (0-0.5); Lymphocytes Absolute Auto 0.91 K/mm3 (0.9-3.2); Lymphocytes Percent Auto 11.4 % (18.3-44.2); Mean Corpuscular Hemoglobin 30.3 pg (26-34); Mean Platelet Volume 9.2 fl (7.4-10.4); Monocytes Absolute Auto 0.7 K/mm3 (0.1-0.6); Monocytes Percent Auto 8.7 % (2.6-8.5); Neutrophils Absolute Auto 6.2 K/mm3 (1.3-6.7); Platelet Count Result 224 k/mm3 (150-375); Red Blood Count 3.46 M/mm3 (4.2-5.4); Red Cell Distribution Width 12.8 % (11.5-14.5)
[2023-06-08 08:10] LABS: Anion Gap 5 mmol/L (4-12); Blood Urea Nitrogen 15 mg/dL (7-17); Calcium 8.3 mg/dL (8.4-10.2); Carbon Dioxide 26 mmol/L (22-30); Chloride 103 mmol/L (98-107); Estimated Glomerular Filt Rate 40; Glucose 94 mg/dL (65-110); Potassium 4.8 mmol/L (3.4-5.0); Sodium 134 mmol/L (137-145)
[2023-06-08 08:22] VITALS: BP 125/65; PULSE 82; RESP 18; TEMP 37.2; O2SAT 99
[2023-06-08] MEDS: SENNA/DOCUSATE SODIUM TABLET 2 TAB PO (08:24)
[2023-06-08] MEDS: ASPIRIN 81 MG ENTERIC TABLET PO ×2 (08:24→17:07)
[2023-06-08] MEDS: lisinopriL 20 MG TABLET PO (08:24)
[2023-06-08] MEDS: polyethylene glycoL 3350 17 GM POWD.PACK PO (08:24)
[2023-06-08] MEDS: FAMOTIDINE 20 MG TABLET PO ×2 (08:24→20:54)
[2023-06-08 08:25] VITALS: O2SAT 96
--- NOTE | 2023-06-08 09:24 | PM.PNORT ---
Progress Note: A&P Assessment and Plan (1) Status post total hip replacement, right: Code(s): Z96.641 - Presence of right artificial hip joint Status: Acute Assessment and Plan: Postop day 1:Right Total hip arthroplasty. Patient tolerated procedure well. Patient had significant increased pain a few hours after surgery yesterday. Significant muscle spasms. Internally rotating the hip. We were concerned for a hip dislocation. Xrays showed intact total hip arthroplasty in normal alignment. Patient has had formal physical therapy twice today and it was decided that she is at a high dislocation risk and required constant re-directing to not internally rotate. I recommend she stay another day for more therapy and for better pain control. Patient had severe pain, walked with a significant deformity, and sat with her leg bent and internally rotated preoperatively. Subjective Subjective Date/Time Seen: 06/08/23 09:24 Interval history: Patient has been having increased pain. She is having a lot of muscle spasms. Severe pain yesterday. She is internally rotating her hip. She had a lot of muscle tightness pre-operatively. She was on nasal canula oxygen this morning and was weaned throughout the day. No other complaints. Review of Systems Review of Systems: All systems reviewed & are unremarkable except as noted in HPI and below Exam Narrative: Overweight 73 y/o female. Resting in bed. Obviously uncomfortable. Muscle spasms in the leg. Holds the knee and pelvis internally rotated. All muscles very tensed. Wearing compression socks bilaterally. Dressing dry and intact with no drainage. Moderate swelling. No ecchymosis. No erythema. No hematoma. Range of motion limited due to pain. Calf nontender. Thigh nontender. Neurologic status intact. No varicosities. Distal pulses palpable. Objective Data Vital Signs Vital Signs: Vital Signs - 24 hr 06/07/23 09:30 06/07/23 09:45 06/07/23 10:00 Temperature 97.1 F L Pulse Rate 84 73 58 L Respiratory Rate 11 L 15 16 Blood Pressure 144/56 H 141/54 H 162/59 H Pulse Oximetry 100 92 95 Oxygen Delivery Simple Face Mask Room Air Nasal Cannula Oxygen Flow Rate 6 2 06/07/23 10:15 06/07/23 10:30 06/07/23 10:45 Temperature Pulse Rate 71 96 76 Respiratory Rate 20 20 17 Blood Pressure 145/79 H 140/53 L 176/58 H Pulse Oximetry 98 100 96 Oxygen Delivery Nasal Cannula Nasal Cannula Nasal Cannula Oxygen Flow Rate 2 2 2 06/07/23 11:05 06/07/23 11:20 06/07/23 12:18 Temperature 95.7 F L 97.1 F L 97.1 F L Pulse Rate 59 L 70 Respiratory Rate 16 16 Blood Pressure 136/98 H 153/63 H Pulse Oximetry 100 93 Oxygen Delivery Oxygen Flow Rate 06/07/23 12:38 06/07/23 20:38 06/07/23 23:53 Temperature 97.6 F 98 F 97.8 F Pulse Rate 65 82 84 Respiratory Rate 18 16 16 Blood Pressure 148/80 H 159/72 H 131/54 L Pulse Oximetry 100 93 97 Oxygen Delivery Oxygen Flow Rate 06/08/23 04:14 06/08/23 07:42 06/08/23 08:22 Temperature 97.1 F L 98.9 F Pulse Rate 76 82 Respiratory Rate 16 18 Blood Pressure 130/75 125/65 Pulse Oximetry 100 99 Oxygen Delivery Room Air Oxygen Flow Rate Intake/Output Intake/Output: Intake & Output 06/05/23 06/06/23 06/07/23 06/08/23 23:59 23:59 23:59 23:59 Intake Total 640 Balance 640 Meds/Results Medications: Active Medications Generic Name Dose Route Start Last Admin Trade Name Dialloq PRN Reason Stop Dose Admin Acetaminophen 1,000 mg 06/07/23 12:00 06/08/23 06:11 Acetaminophen 500 Mg Tablet PO 1,000 mg Q6H TONA Administration Aspirin 81 mg 06/07/23 17:00 06/08/23 08:24 Aspirin 81 Mg Enteric Tablet PO 81 mg BID TONA Administration Cyclobenzaprine HCl 10 mg 06/07/23 10:53 06/07/23 20:30 Cyclobenzaprine Hcl 10 Mg Tablet PO 10 mg Q8H PRN Administration Spasms Diphenhydramine HCl 25 mg 06/07/23 10:53 Diphenhydramine Hcl Inj 50 Mg/Ml Vial IV PUSH Q6H PRN
[2023-06-08 12:38] VITALS: BP 123/60; PULSE 80; RESP 20; TEMP 36.7; O2SAT 90
--- NOTE | 2023-06-08 15:12 | WPDANESPN ---
Anes - Prog Note Post-Op Date/Time: 06/08/23 15:12 Cardiovascular status: normal Respiratory status: normal Airway patency: baseline Mental status: baseline Post-Op hydration status: normal Vital Signs: Last Vital Signs Temp 36.7 C 06/08/23 12:38 Pulse 80 06/08/23 12:38 Resp 20 06/08/23 12:38 BP 123/60 06/08/23 12:38 Pulse Ox 90 06/08/23 12:38 O2 Del Method Room Air 06/08/23 08:25 O2 Flow Rate 2 06/07/23 10:45 Pain Score (VAS): 0/10 I/O: Intake & Output 06/07/23 06/08/23 06/08/23 23:59 07:59 15:59 Intake Total 220 360 Balance 220 360 Laboratory Tests 06/08/23 07:18 06/08/23 07:18 06/08/23 07:18 WBC 8.0 RBC 3.46 L Hgb 10.5 L Hct 33.9 L MCV 98.0 MCH 30.3 MCHC 31.0 L RDW 12.8 Plt Count 224 MPV 9.2 Immature Gran % (Auto) 0.3 Neut % (Auto) 78.0 H Lymph % (Auto) 11.4 L Greene % (Auto) 8.7 H Eos % (Auto) 1.0 Baso % (Auto) 0.6 Lymph # (Auto) 0.91 Greene # (Auto) 0.7 H Eos # (Auto) 0.1 Baso # (Auto) 0.1 Abs Immat Gran (auto) 0.02 Absolute Neuts (auto) 6.2 Absolute Nucleated RBC 0.000 Nucleated RBC % 0.0 Sodium 134 L Potassium 4.8 Chloride 103 Carbon Dioxide 26 Anion Gap 5 L BUN 15 Creatinine 1.30 H Estim Creat Clear Calc Not Reportable Estimated GFR 40 L Glucose 94 Calcium 8.3 L Post-procedural complaints: none Patient Feedback: Patient satisfied with anesthetic care.
--- NOTE | 2023-06-08 16:06 | PM.PNORT ---
Progress Note: A&P Assessment and Plan (1) Orthopedic aftercare for joint replacement: Code(s): Z47.1 - Aftercare following joint replacement surgery Status: Acute (2) Status post total hip replacement, right: Code(s): Z96.641 - Presence of right artificial hip joint Status: Acute Plan Patient seen yesterday. X-ray ordered due to increased pain She she was complaining of spasms. She held the leg flexed and internally rotated. Concern for dislocation prompted an x-ray. Her neurovascular status was intact despite diminished pedal pulse. Light touch sensation was normal. The thigh did not have any unusual swelling or deformity. Calf is nontender. Radiograph shows intact total hip arthroplasty without acute dislocation. Her pain is likely related to prior contracture and muscle spasm. She has been holding the leg in a flexed posture for several weeks. She will benefit from physical therapy and continued prompting to protect the leg from the risk of dislocation. Subjective Subjective Date/Time Seen: 06/08/23 16:06 Objective Data Vital Signs Vital Signs: Vital Signs - 24 hr 06/07/23 20:38 06/07/23 23:53 06/08/23 04:14 Temperature 36.6 C 36.6 C 36.2 C L Pulse Rate 82 84 76 Respiratory Rate 16 16 16 Blood Pressure 159/72 H 131/54 L 130/75 Pulse Oximetry 93 97 100 Oxygen Delivery 06/08/23 07:42 06/08/23 08:22 06/08/23 08:25 Temperature 37.2 C Pulse Rate 82 Respiratory Rate 18 Blood Pressure 125/65 Pulse Oximetry 99 96 Oxygen Delivery Room Air Room Air 06/08/23 12:38 Temperature 36.7 C Pulse Rate 80 Respiratory Rate 20 Blood Pressure 123/60 Pulse Oximetry 90 Oxygen Delivery Intake/Output Intake/Output: Intake & Output 06/05/23 06/06/23 06/07/23 06/08/23 23:59 23:59 23:59 23:59 Intake Total 640 360 Balance 640 360 Meds/Results Medications: Active Medications Generic Name Dose Route Start Last Admin Trade Name Freq PRN Reason Stop Dose Admin Acetaminophen 1,000 mg 06/07/23 12:00 06/08/23 12:22 Acetaminophen 500 Mg Tablet PO 1,000 mg Q6H TONA Administration Aspirin 81 mg 06/07/23 17:00 06/08/23 08:24 Aspirin 81 Mg Enteric Tablet PO 81 mg BID TONA Administration Cyclobenzaprine HCl 10 mg 06/07/23 10:53 06/07/23 20:30 Cyclobenzaprine Hcl 10 Mg Tablet PO 10 mg Q8H PRN Administration Spasms Diphenhydramine HCl 25 mg 06/07/23 10:53 Diphenhydramine Hcl Inj 50 Mg/Ml Vial IV PUSH Q6H PRN Itching Famotidine 20 mg 06/07/23 21:00 06/08/23 08:24 Famotidine 20 Mg Tablet PO 20 mg Q12HR TONA Administration Hydromorphone HCl 0.5 mg 06/07/23 13:44 06/08/23 03:21 Hydromorphone Hcl Inj (*Crx) 1 Mg/Ml Syr IV PUSH 0.5 mg Q2H PRN Administration Pain Rated 7-10 Lisinopril 20 mg 06/08/23 09:00 06/08/23 08:24 Lisinopril 20 Mg Tablet PO 20 mg QAM TONA Administration Naloxone HCl 0.1 mg 06/07/23 10:53 Naloxone Hcl 0.4 Mg/Ml Vial IV PUSH Q2M PRN Opiate Reversal Ondansetron HCl 4 mg 06/07/23 10:53 Ondansetron Inj 4 Mg/2 Ml Vial IV PUSH Q4H PRN Nausea And Vomiting Oxycodone HCl 5 mg 06/07/23 10:53 06/07/23 20:30 Oxycodone Hcl (*Crx) 5 Mg Tab Ir PO 5 mg Q4H PRN Administration Pain Rated 4-6 Oxycodone HCl 10 mg 06/07/23 10:53 06/07/23 11:23 Oxycodone Hcl (*Crx) 5 Mg Tab Ir PO 10 mg Q4H PRN Administration Pain Rated 7-10 Polyethylene Glycol 17 gm 06/08/23 09:00 06/08/23 08:24 Polyethylene Glycol 3350 17 Gm Powd.Pack PO 17 gm QAM TONA Administration Senna/Docusate Sodium 2 tab 06/07/23 17:00 06/08/23 08:24 Senna/Docusate Sodium Tablet PO 2 tab BID TONA Administration Tramadol HCl 50 mg 06/07/23 10:53 Tramadol Hcl (*Crx) 50 Mg Tablet PO Q4H PRN Pain Rated 1-3 Radiology Results: ITS Impressions Hip X-Ray 06/07/23 09:47 IMPRESSION: 1. Recent right total hip
[2023-06-08 16:11] VITALS: BP 130/68; PULSE 80; RESP 18; TEMP 36.2; O2SAT 90
[2023-06-08 20:21] VITALS: BP 182/80; PULSE 109; RESP 16; TEMP 36.2; O2SAT 95
[2023-06-08] MEDS: CYCLOBENZAPRINE HCL 10 MG TABLET PO (20:54)
[2023-06-08] MEDS: oxyCODONE HCL (*CRX) 5 MG TAB IR 10 MG PO (22:24)
[2023-06-09] VITALS: BP 164/62; PULSE 88; RESP 18; TEMP 36.2; O2SAT 95
[2023-06-09] MEDS: oxyCODONE HCL (*CRX) 5 MG TAB IR PO ×2 (01:22→06:20)
[2023-06-09] MEDS: ACETAMINOPHEN 500 MG TABLET 1000 MG PO ×3 (01:22→12:01)
[2023-06-09 05:00] VITALS: BP 127/60; PULSE 82; RESP 16; TEMP 36.7; O2SAT 93
[2023-06-09] MEDS: ASPIRIN 81 MG ENTERIC TABLET PO (08:41)
[2023-06-09] MEDS: lisinopriL 20 MG TABLET PO (08:41)
[2023-06-09] MEDS: FAMOTIDINE 20 MG TABLET PO (08:41)
[2023-06-09 09:00] VITALS: BP 125/60; PULSE 72; RESP 18; TEMP 36.3; O2SAT 98
--- NOTE | 2023-06-09 10:05 | PM.DS ---
DS: Admitting Diagnosis Discharge Date 06/09/23 Admitting Diagnosis OA Right hip DS: Discharge Diagnosis Discharge Diagnosis Plan Postop day 2: Total hip arthroplasty. Patient tolerated procedure well. Significant muscle spams and increased pain after surgery. Required more therapy and education. She is a dislocation risk due to her deformity pre-op. Patient's natural tendency is to internally rotate her hip. We had a lengthy discussion about hip precautions. She shows good understanding. Pain now manageable with pain medication. No numbness or tingling. We had a lengthy discussion regarding postoperative wound care, limitations, expectations, and exercises. Patient shows good understanding. Patient has had initial physical therapy and is tolerating it well. DVT prophylaxis: 81 mg baby aspirin b.i.d. for 14 days. Short frequent walks. Pain medication: Percocet. Celebrex. Patient has followup appointment with Dr. Porter in 3 weeks DS: Summary Hospital Course Reason for hospitalization: Total hip arthroplasty Hospital Course: Patient tolerated procedure well. Significant muscle spams and increased pain after surgery. Required an additional day for more therapy and education. Status at Discharge Functional status at discharge: uses cane/walker Overall status at discharge: patient is progressing back to baseline Time Spent with Patient Time attestation: Total time spent providing and/or coordinating discharge services: Exam Narrative: Overweight 73 y/o female. Resting comfortably in bed. Wearing compression socks bilaterally. Dressing dry and intact with no drainage. Mild swelling. No ecchymosis. No erythema. No hematoma. Range of motion limited due to pain. Calf nontender. Thigh nontender. Neurologic status intact. No varicosities. Distal pulses palpable. Discharge Plan Discharge Attending physician on discharge: Paxton Porter Discharging Clinician: Gregoria Rocha Anticipated Discharge Date/Time: 06/09/23 10:03 Patient Disposition: Home, Self-Care Activity: may shower Diet: as tolerated and regular Wound Care Instructions: follow printed instructions Discharge Instructions: See green instructions sheets Stand Alone Forms: General Discharge Instructions Follow-up/Referrals: Gregoria Rocha PA [Physician Tobacco Scrap Sifter] - Discharge Medications: New aspirin 81 mg tablet,delayed release (DR/EC) 81 mg PO BID 14 Days Qty: 28 0RF oxycodone-acetaminophen 5-325 mg tablet 1 - 2 tablet PO Q4-6H MDD 6 PRN (Reason: pain) Qty: 30 0RF Continued cyclobenzaprine 5 mg tablet 5 mg PO BID PRN (Reason: muscle spasm) Qty: 30 0RF lisinopril 20 mg tablet 20 mg PO QAM Qty: 90 1RF celecoxib [Celebrex] 50 mg capsule 50 mg PO BID Qty: 180 1RF biotin 2,500 mcg Tablet 2,500 mcg PO DAILY Discontinued hydrocodone-acetaminophen 5-325 mg tablet 1 tablet PO Q8H MDD 3 PRN (Reason: pain) Qty: 30 0RF tramadol 50 mg tablet 50 mg PO Q12H PRN (Reason: pain) Qty: 30 0RF Date of admission: 06/08/23 15:40 Primary Care Provider: Ervin Hernandez Admitting Provider: Paxton Porter Attending physician on admission: Paxton Porter Condition: Stable
[2023-06-09 12:03] VITALS: BP 107/58; PULSE 91; RESP 16; TEMP 36.1; O2SAT 94
== END 2023-06-09 14:10 | disposition home or self-care (01) ==
LOC: ANHSURGERY 16:26 → ANH3MEDSUR 16:26
PROVIDERS: Physician Assistant Surgical; Admitting Provider Orthopaedic Surgery; PCP Emergency Medicine; Visit Provider Orthopaedic Surgery
PROC: (CPT 27130; principal; 2023-06-07 07:30)
DX: M16.11 Unilateral primary osteoarthritis, right hip (principal); G89.18 Other acute postprocedural pain; I12.9 Hypertensive chronic kidney disease with stage 1 through stage 4 chronic kidney disease, or unspecified chronic kidney disease; N18.32 Chronic kidney disease, stage 3b; I73.9 Peripheral vascular disease, unspecified; E66.3 Overweight; Z68.27 Body mass index [BMI] 27.0-27.9, adult; F10.90 Alcohol use, unspecified, uncomplicated; Z79.891 Long term (current) use of opiate analgesic; Z79.899 Other long term (current) drug therapy
CPT/HCPCS: 27130; 36415; 73502; 80048; 80307; 82040; 83036; 85025; 85610; 85730; 86850; 86900; 86901; 87641; 97110; 97161; 97165; 97530; 97535; A9270; C1713; C1776; G0378; J0171; J0690; J1165; J1170; J1200; J1596; J2250; J2270; J2405; J2704; J2710; J2795; J3010; J7030; J7120

== ENCOUNTER 2023-09-07 14:03 | Outpatient (CLI) | payer MEDICARE, SELFPAY ==
--- NOTE | ~2023-09-07 | XR_ITS ---
EXAM: XR hip RT 2V w AP pelvis DATE: 09/07/2023 14:32 HISTORY: Z96.641 - Presence of right artificial hip joint, GENERAL PN . COMPARISON: 07/27/2023, images only some: 06/07/2023. FINDINGS: Decreased mineralization. Stable ossific fragment adjacent to the greater tuberosity. No a cute fracture or dislocation. No lytic or blastic lesion. Uncomplicated appearing right hip dysplasti c hardware. Mild degenerative change in the left hip. Lumbar degenerative disc disease. No erosion or periosteal change. Soft tissues within normal limits. IMPRESSION: No acute osseous finding in the pelvis or right hip. No radiographic evidence of hardware related complication. Reviewed, dictated and finalized at location K. IMPRESSION: No acute osseous finding in the pelvis or right hip. No radiographi c evidence of hardware related complication.
== END 2023-09-07 14:04 | disposition home or self-care (01) ==
PROVIDERS: PCP Emergency Medicine; Visit Provider Physician Assistant Surgical
DX: Z96.641 Presence of right artificial hip joint (principal)
CPT/HCPCS: 73502

== ENCOUNTER 2023-11-02 14:08 | Outpatient (CLI) | payer MEDICARE, SELFPAY ==
[2023-11-02 15:09] LABS: Influenza A QL RT-PCR Negative (Negative); Influenza B QL RT-PCR Negative (Negative); RSV RNA, RT-PCR Negative (Negative); SARS-CoV-2 RNA PCR Negative (Negative)
== END 2023-11-02 14:09 | disposition home or self-care (01) ==
LOC: ANHLAB 14:10
PROVIDERS: PCP Emergency Medicine; Visit Provider Emergency Medicine
DX: U07.1 COVID-19 (principal)
CPT/HCPCS: 87637

== ENCOUNTER 2023-11-09 14:37 | Emergency (ER) | payer MEDICARE, SELFPAY ==
--- NOTE | 2023-11-09 14:44 | ED.URI ---
HPI - URI/Sore Throat General Chief Complaint: Upper Respiratory Infection Stated Complaint: sore throat, weakness, and phleghm Time Seen by Provider: 11/09/23 15:06 Source: patient and RN notes reviewed Mode of arrival: ambulatory Limitations: no limitations History of Present Illness HPI Narrative: 73-year-old female presents with concern for 2 week history of nasal congestion, sinus pressure, generalized weakness, cough, sore throat, dizziness when she turns her head. She reports her doctor gave her is Z-Eliel, she finished that without relief. She reports she has also taken Sudafed and Mucinex MD elicited complaint: cough, rhinorrhea and nasal congestion Related Data Allergies Allergy/AdvReac Type Severity Reaction Status Date / Time No Known Allergies Allergy Verified 11/09/23 14:41 Review of Systems Review of Systems: CONSTITUTIONAL: Reports malaise, fatigue, generalized weakness EYES: Denies visual changes, redness, or discharge. ENT: Reports rhinorrhea, congestion, sinus pain, otalgia and sore throat. CARDIOVASCULAR: Denies chest pain, palpitations, or edema. RESPIRATORY: Reports cough. Denies dyspnea. GASTROINTESTINAL: Denies abdominal pain, nausea, vomiting, diarrhea SKIN: Denies rash or itching. MUSCULOSKELETAL: Denies myalgia. NEUROLOGIC: Denies headache. All systems reviewed & are unremarkable except as noted in HPI and below PMFSH Past Medical History Medical History Fracture of left elbow Hypertension Stage 3b chronic kidney disease Surgical History Surgical History H/O shoulder surgery right H/O Spinal surgery H/O: hysterectomy History of hip surgery Multiple surgeries in the 80's - Rt Hip Status post total hip replacement, right (~06/07/23) Social History Social History Smoking packs per day: 0.5 Smoking cigarettes per day: 10.0 Years smoked: 16 Smoking pack-years: 8.00 Smoking status: Former smoker Tobacco type: cigarettes Smoking end date: 09/11/80 Alcohol intake: current Drinks per week: 1 Alcohol use details: social Substance use: never Substance use type: does not use Do You Feel Safe in your Home?: Yes Lack of Transportation: No Lack of Food: Never True Current Housing: I Have Housing Concerned About Future Housing: No Difficulty Paying Gas/Electric Bills: No Difficulty Paying for Meds: No Currently Unemployed: No Education: High School Diploma/GED Difficulty w/ Childcare or Family Care: No Living arrangements: with family Additional living arrangements comments: [facility] Gender identity (if verbalized by the patient): Female Spiritual care concerns: No Comments At time of signature, agree with nursing past medical, surgical, social and family history. There is no relevant family history pertinent to the presenting complaint Exam Narrative: GENERAL: Well-appearing, well-nourished, and in no acute distress. HEAD: Normocephalic EYES: PERRLA, conjunctivae clear ENT: Nares clear, turbinates edematous and erythematous. Mucous membranes moist. TM pearly robert with dull light reflex bilaterally; no tragal tenderness. Oropharynx not erythematous without lesions. Tonsils not enlarged and without exudate, no drooling, no hoarseness, no trismus, uvula midline. NECK: Supple. No lymphadenopathy CHEST: Very mild Scattered expiratory wheeze Clear to auscultation, breath sounds equal. No rhonchi, rales, or stridor. No respiratory distress, speaks in full sentences. HEART: Regular rate and rhythm. No murmur heard. SKIN: Warm, dry, no rash. NEURO: Alert and oriented x3. PSYCH: Normal mood and affect Course Course Emergency Course: Patient is aware of diagnosis, understands and agrees to treatment plan. Anticipatory guidance given. Patient agrees to follow-up as directed and is awar
[2023-11-09 14:53] VITALS: BP 109/52; PULSE 88; RESP 18; TEMP 36.6; O2SAT 99
== END 2023-11-09 15:17 | disposition home or self-care (01) ==
PROVIDERS: Emergency Provider Nurse Practitioner; PCP Emergency Medicine
DX: J32.9 Chronic sinusitis, unspecified (principal); Z20.822 Contact with and (suspected) exposure to COVID-19; Z87.891 Personal history of nicotine dependence; I12.9 Hypertensive chronic kidney disease with stage 1 through stage 4 chronic kidney disease, or unspecified chronic kidney disease; N18.32 Chronic kidney disease, stage 3b; Z96.641 Presence of right artificial hip joint
CPT/HCPCS: 87426; 99213; G0463

== ENCOUNTER 2023-11-16 15:10 | Outpatient (CLI) | payer MEDICARE, SELFPAY ==
--- NOTE | ~2023-11-16 | XR_ITS ---
EXAMINATION: XR thoracic spine 3V DATE: 11/16/2023 15:39 INDICATION: Pain in thoracic spine. TECHNIQUE: 3 views of thoracic spine on 4 radiographs including standing views were obtained. COMPARISON: Chest 2 views 01/24/2022 FINDINGS: There is 13 degrees levoscoliosis of thoracolumbar spine. There is a chronic compression fr acture of T12 with changes of vertebroplasty with focal kyphosis. There is 5 mm retrolisthesis of L2 on L3. There is mildly decreased disc height at multiple levels in thoracic spine. There are endplate osteophytes at most levels. There is severe lumbar spondylosis. Surgical clips in the right upper qu adrant are likely from cholecystectomy. IMPRESSION: 1. Mild thoracic spondylosis. 2. Thoracolumbar levoscoliosis. Reviewed, dictated and finalized at location A.
== END 2023-11-16 15:11 | disposition home or self-care (01) ==
PROVIDERS: PCP Emergency Medicine; Visit Provider Emergency Medicine
DX: M47.814 Spondylosis without myelopathy or radiculopathy, thoracic region (principal); M41.85 Other forms of scoliosis, thoracolumbar region
CPT/HCPCS: 72072

== ENCOUNTER 2023-11-16 15:37 | Outpatient (CLI) | payer MEDICARE, SELFPAY ==
[2023-11-16 19:41] LABS: Alanine Aminotransferase 32 U/L (6-35); Albumin Level 4.2 g/dL (3.5-5.1); Alkaline Phosphatase 108 U/L (38-126); Anion Gap 13 mmol/L (4-12); Aspartate Amino Transferase 43 U/L (14-36); Bilirubin,Total 0.5 mg/dL (0.2-1.3); Blood Urea Nitrogen 55 mg/dL (7-17); Carbon Dioxide 25 mmol/L (22-30); Chloride 96 mmol/L (98-107); Cholesterol 253 mg/dL (0-200); Estimated Glomerular Filt Rate 21; Glucose 110 mg/dL (65-110); HDL Direct 42 mg/dL; Potassium 4.3 mmol/L (3.4-5.0); Sodium 134 mmol/L (137-145); Triglycerides 298 mg/dL (<150)
[2023-11-16 19:45] LABS: D Dimer 0.62 ug/mL (<0.48)
[2023-11-16 19:48] LABS: Basophils Absolute Auto 0.1 K/mm3 (0.0-0.1); Basophils Percent Auto 0.5 % (0.2-1.2); Eosinophils Absolute Auto 0.2 K/mm3 (0-0.3); Eosinophils Percent Auto 1.2 % (0-4.4); Hematocrit 41.9 % (37.0-47.0); Hemoglobin 13.3 g/dL (12.0-15.0); Immature Granulocyte Absolute 0.26 K/mm3 (0.00-0.031); Lymphocytes Absolute Auto 2.49 K/mm3 (0.9-3.2); Lymphocytes Percent Auto 19.4 % (18.3-44.2); Mean Corpuscular HGB Conc 31.7 g/dl (32-36); Mean Corpuscular Hemoglobin 30.6 pg (26-34); Mean Corpuscular Volume 96.3 fl (80-100); Monocytes Absolute Auto 0.8 K/mm3 (0.1-0.6); Monocytes Percent Auto 6.5 % (2.6-8.5); Neutrophils Percent Auto 70.4 % (45.5-73.1); Platelet Count Result 448 k/mm3 (150-375); Red Blood Count 4.35 M/mm3 (4.2-5.4); Red Cell Distribution Width 13.8 % (11.5-14.5); White Blood Count 12.8 K/mm3 (4.5-10.0)
[2023-11-16 19:52] LABS: LDL Cholesterol Direct 149 mg/dL; Troponin I < 0.012 ng/mL (0.000-0.034)
[2023-11-16 22:10] LABS: Thyroid Stimulating Hormone Reflex < 0.015 uIU/mL (0.465-4.68)
[2023-11-16 22:38] LABS: Free T4 Free Thyroxine Reflex 1.02 ng/dL (0.78-2.19)
[2023-11-16 23:20] LABS: Total Triiodothyronine (T3) 1.01 NG/ML (0.97-1.69)
== END 2023-11-16 15:38 | disposition home or self-care (01) ==
LOC: ANHGOSHLAB 15:38
PROVIDERS: PCP Emergency Medicine; Visit Provider Emergency Medicine
DX: I20.89 Other forms of angina pectoris (principal); I12.9 Hypertensive chronic kidney disease with stage 1 through stage 4 chronic kidney disease, or unspecified chronic kidney disease; N18.9 Chronic kidney disease, unspecified
CPT/HCPCS: 36415; 80053; 80061; 84439; 84443; 84480; 84484; 85025; 85380

== ENCOUNTER 2023-11-18 14:15 | Emergency (ER) | payer MEDICARE, SELFPAY ==
[2023-11-18 15:21] VITALS: BP 120/92; PULSE 86; RESP 18; TEMP 36.8; O2SAT 95
--- NOTE | 2023-11-18 15:25 | ED.RECABL ---
HPI - Recheck/Abnormal Lab/Rx General Chief Complaint: Recheck/Abnormal Lab/Rx Stated Complaint: sent from PCP for KAE Time Seen by Provider: 11/18/23 15:25 Focused HPI: this is a 73-year-old female that presents to the emergency department for abnormal outpatient blood work. She was told to come to the ER by her PCP for acute kidney injury. She has a been experiencing some mid back pain, otherwise no focal complaints. Reports some generalized weakness. GENERAL: Well-appearing, well-nourished, and in no acute distress. HEAD: Normocephalic, atraumatic. CHEST: Clear to auscultation. ?No respiratory distress. HEART: Regular rate and rhythm.? NEURO: ?Alert and oriented x3. Patient screened in triage and initial orders placed.? ?Additional care and disposition to be based upon?diagnostic testing and treatment. Related Data Home Medications Medication Instructions Recorded Confirmed lisinopril 20 mg tablet 10 mg PO QAM 11/16/23 11/16/23 Allergies Allergy/AdvReac Type Severity Reaction Status Date / Time No Known Allergies Allergy Verified 11/18/23 15:25 [facility] Past Medical History Medical History Fracture of left elbow Hypertension Stage 3b chronic kidney disease Surgical History Surgical History H/O shoulder surgery right H/O Spinal surgery H/O: hysterectomy History of hip surgery Multiple surgeries in the 80's - Rt Hip Status post total hip replacement, right (~06/07/23) Social History Social History Smoking packs per day: 0.5 Smoking cigarettes per day: 10.0 Years smoked: 16 Smoking pack-years: 8.00 Smoking status: Former smoker Tobacco type: cigarettes Smoking end date: 09/11/80 Alcohol intake: current Drinks per week: 1 Alcohol use details: social Substance use: never Substance use type: does not use Do You Feel Safe in your Home?: Yes Lack of Transportation: No Lack of Food: Never True Current Housing: I Have Housing Concerned About Future Housing: No Difficulty Paying Gas/Electric Bills: No Difficulty Paying for Meds: No Currently Unemployed: No Education: High School Diploma/GED Difficulty w/ Childcare or Family Care: No Living arrangements: with family Additional living arrangements comments: [facility] Gender identity (if verbalized by the patient): Female Spiritual care concerns: No Course Vital Signs Vital signs: Vital Signs Temperature 98.2 F 11/18/23 15:21 Pulse Rate 86 11/18/23 15:21 Respiratory Rate 18 11/18/23 15:21 Blood Pressure 120/92 H 11/18/23 15:21 Pulse Oximetry 95 11/18/23 15:21 Oxygen Delivery Room Air 11/18/23 15:21 Temperature 98.2 F 11/18/23 15:21 Pulse Rate 86 11/18/23 15:21 Respiratory Rate 18 11/18/23 15:21 Blood Pressure 120/92 H 11/18/23 15:21 Pulse Oximetry 95 11/18/23 15:21 Oxygen Delivery Room Air 11/18/23 15:21 MDM - Recheck/Abnormal Lab/Rx MDM Narrative Medical decision making narrative: Patient presented to the emergency department for abnormal outpatient blood work showing possible KAE. She left after medical screening exam and initial workup and before any further evaluation or management Lab Data 11/18/23 15:34 11/18/23 15:34 Labs: Lab Results 11/18/23 Range/Units 15:34 WBC 10.6 H (4.5-10.0) K/mm3 RBC 4.25 (4.2-5.4) M/mm3 Hgb 13.1 (12.0-15.0) g/dL Hct 40.4 (37.0-47.0) % MCV 95.1 (80-100) fl MCH 30.8 (26-34) pg MCHC 32.4 (32-36) g/dl RDW 14.1 (11.5-14.5) % Plt Count 380 H (150-375) k/mm3 MPV 9.1 (7.4-10.4) fl Immature Gran % (Auto) 0.8 H (0-0.5) % Neut % (Auto) 76.3 H (45.5-73.1) % Lymph % (Auto) 15.2 L (18.3-44.2) % [place] % (Auto) 5.6 (2.6-8.5) % Eos % (Auto) 1.5 (0-4.4) % Baso % (Auto) 0.6 (0.2-1.2) % Lymph #
[2023-11-18 15:59] LABS: Basophils Absolute Auto 0.1 K/mm3 (0.0-0.1); Basophils Percent Auto 0.6 % (0.2-1.2); Eosinophils Absolute Auto 0.2 K/mm3 (0-0.3); Eosinophils Percent Auto 1.5 % (0-4.4); Hematocrit 40.4 % (37.0-47.0); Hemoglobin 13.1 g/dL (12.0-15.0); Immature Granulocyte Absolute 0.08 K/mm3 (0.00-0.031); Immature Granulocyte Percent A 0.8 % (0-0.5); Lymphocytes Absolute Auto 1.61 K/mm3 (0.9-3.2); Lymphocytes Percent Auto 15.2 % (18.3-44.2); Mean Corpuscular HGB Conc 32.4 g/dl (32-36); Mean Corpuscular Hemoglobin 30.8 pg (26-34); Mean Corpuscular Volume 95.1 fl (80-100); Mean Platelet Volume 9.1 fl (7.4-10.4); Monocytes Absolute Auto 0.6 K/mm3 (0.1-0.6); Monocytes Percent Auto 5.6 % (2.6-8.5); Neutrophils Absolute Auto 8.1 K/mm3 (1.3-6.7); Neutrophils Percent Auto 76.3 % (45.5-73.1); Platelet Count Result 380 k/mm3 (150-375); Red Blood Count 4.25 M/mm3 (4.2-5.4); Red Cell Distribution Width 14.1 % (11.5-14.5); White Blood Count 10.6 K/mm3 (4.5-10.0)
[2023-11-18 16:11] LABS: Alanine Aminotransferase 30 U/L (6-35); Albumin Level 4.2 g/dL (3.5-5.1); Alkaline Phosphatase 95 U/L (38-126); Anion Gap 10 mmol/L (4-12); Aspartate Amino Transferase 39 U/L (14-36); Bilirubin,Total 0.6 mg/dL (0.2-1.3); Blood Urea Nitrogen 50 mg/dL (7-17); Carbon Dioxide 27 mmol/L (22-30); Chloride 96 mmol/L (98-107); Estimated CRCL calculation 20 ml/min; Estimated Glomerular Filt Rate 29; Glucose 110 mg/dL (65-110); Potassium 4.6 mmol/L (3.4-5.0); Sodium 133 mmol/L (137-145)
== END 2023-11-18 20:35 | disposition left against medical advice (07) ==
LOC: ANHED 15:45
PROVIDERS: Emergency Provider Physician Assistant; PCP Emergency Medicine
DX: N18.32 Chronic kidney disease, stage 3b (principal); I12.9 Hypertensive chronic kidney disease with stage 1 through stage 4 chronic kidney disease, or unspecified chronic kidney disease; Z87.891 Personal history of nicotine dependence
CPT/HCPCS: 36415; 80053; 85025; 99283

== ENCOUNTER 2023-12-01 11:09 | Emergency (ER) | payer MEDICARE, SELFPAY ==
--- NOTE | ~2023-12-01 | XR_ITS ---
EXAMINATION: XR chest 1V portable DATE: 12/01/2023 12:20 INDICATION: Weakness. TECHNIQUE: A single frontal view of the chest was obtained. COMPARISON: Chest 2 views 01/24/2022 FINDINGS: A calcified left lung nodule and calcified mediastinal lymph nodes are consistent with old granulomatous disease. No pleural effusion or pneumothorax. The heart size is normal. There are lopez es of vertebroplasty at one level. There is an old healed right rib fracture. IMPRESSION: 1. No acute cardiopulmonary disease. Reviewed, dictated and finalized at location A.
[2023-12-01 11:10] VITALS: BP 128/51; PULSE 92; RESP 20; TEMP 36.7; O2SAT 100
--- NOTE | 2023-12-01 11:44 | ECG_ITS ---
Test Date: 2023-12-01 11:55:10 Measurements Intervals [place] Rate: 70 P: 72 ND: 172 QRS: -6 QRSD: 80 T: 72 QT: 386 QTc: 417 Interpretive Statements SINUS RHYTHM DELAYED PRECORDIAL R/S TRANSITION BASELINE ARTIFACT- I, II, III, AVR, AVL, V1 BORDERLINE ECG No previous ECG available for comparison Electronically Signed On 12-01-2023 12:01:19 CDT by Jon Prabhakar D.O.
[2023-12-01] MEDS: SODIUM CHLORIDE 0.9% IV 1,000 ML 999 ML IV CONT (11:59)
[2023-12-01 12:00] VITALS: BP 107/67; PULSE 70; RESP 16; O2SAT 97
[2023-12-01 12:00] LABS: Basophils Absolute Auto 0.05 K/mm3 (0.00-0.10); Basophils Percent Auto 1.1 % (0.0-1.0); Eosinophils Absolute Auto 0.15 K/mm3 (0.02-0.50); Eosinophils Percent Auto 3.2 % (1.0-6.0); Hemoglobin 11.5 g/dL (11.7-13.8); Immature Granulocyte Absolute 0.03 K/mm3 (0.00-0.00); Immature Granulocyte Percent A 0.6 % (0.0-0.0); Lymphocytes Absolute Auto 0.92 K/mm3 (1.10-4.50); Lymphocytes Percent Auto 19.7 % (18.0-42.0); Mean Corpuscular HGB Conc 32.9 g/dL (32-36); Mean Corpuscular Hemoglobin 30.7 pg (27.0-31.0); Mean Corpuscular Volume 93.3 fL (78.0-102.0); Mean Platelet Volume 9.2 fl (9.2-11.8); Monocytes Absolute Auto 0.36 K/mm3 (0.10-0.90); Monocytes Percent Auto 7.7 % (2.0-11.0); Neutrophils Absolute Auto 3.16 K/mm3 (1.70-7.20); Neutrophils Percent Auto 67.7 % (50.0-70.0); Platelet Count Result 225 K/mm3 (150-420); Red Blood Count 3.75 M/mm3 (4.20-5.40); Red Cell Distribution Width 13.8 % (11.6-14.4); White Blood Count 4.7 K/mm3 (4.8-10.8)
[2023-12-01 12:20] LABS: Lactic Acid Reflex 0.9 mmol/L (0.4-2.0)
[2023-12-01 12:25] LABS: Alanine Aminotransferase 33 U/L (14-59); Albumin Level 3.2 g/dL (3.4-5.0); Alkaline Phosphatase 98 U/L (46-116); Anion Gap 5 mmol/L (4-12); Aspartate Amino Transferase 26 U/L (15-37); Bilirubin,Total 0.4 mg/dL (0.00-1.00); Blood Urea Nitrogen 23 mg/dL (7-18); Calcium 8.9 mg/dL (8.5-10.1); Carbon Dioxide 31 mmol/L (21-32); Chloride 100 mmol/L (98-108); Estimated CRCL calculation 19 ml/min; Estimated Glomerular Filt Rate 28; Glucose 88 mg/dL (70-99); Osmolality Calculated 284 mOsm/kg (285-295); Potassium 3.8 mmol/L (3.5-5.1); Sodium 136 mmol/L (136-145); Total Protein 6.5 g/dL (6.4-8.2)
[2023-12-01 12:40] LABS: Thyroid Stimulating Hormone 1.44 uIU/mL (0.36-3.74)
[2023-12-01 12:47] LABS: Add Urine Microscopic? YES; Appearance Urine Clear (Clear); Bilirubin Urine Negative (Negative); Blood Urine Negative (Negative); Color Urine Light Yellow (Yellow); Glucose Urine UA Negative (Negative); Ketones Urine Negative (Negative); Leukocyte Esterase Ur Trace LEU/UL (Negative); Nitrate Urine Negative (Negative); Protein Urine Negative (Negative); Specific Grav Ur <= 1.005 (1.010-1.020); Urobilinogen Urine 0.2 mg/dL (0.2-1.0); pH Urine 6.5 (5.0-8.0)
--- NOTE | 2023-12-01 12:51 | ED.WEAKNESS ---
HPI - Weakness General Chief complaint: Weakness Stated complaint: abnormal labs Time Seen by Provider: 12/01/23 11:13 Source: patient and family Mode of arrival: ambulatory Limitations: no limitations History of Present Illness HPI Narrative: this is 73-year-old female that presents with generalized weakness some had blood work performed by her primary and was told to go to the emergency room for fluids because of acute renal insufficiency. The patient feels little dizzy and with generalized weakness otherwise no palpitations no chest pain no shortness of breath no fever chills no dysuria no flank pain or abdominal pain no nausea or vomiting. Complaint: generalized weakness Onset (ago): week(s) Duration: intermittent Location: generalized Related Data Home Medications Medication Instructions Recorded Confirmed No Home Medications 12/01/23 12/01/23 Allergies Allergy/AdvReac Type Severity Reaction Status Date / Time No Known Allergies Allergy Verified 12/01/23 11:37 Review of Systems Review of Systems: All systems reviewed & are unremarkable except as noted in HPI and below PMFSH Past Medical History Medical History Fracture of left elbow Hypertension Stage 3b chronic kidney disease Surgical History Surgical History H/O shoulder surgery right H/O Spinal surgery H/O: hysterectomy History of hip surgery Multiple surgeries in the 80's - Rt Hip Status post total hip replacement, right (~06/07/23) Social History Social History Smoking packs per day: 0.5 Smoking cigarettes per day: 10.0 Years smoked: 16 Smoking pack-years: 8.00 Smoking status: Former smoker Tobacco type: cigarettes Smoking end date: 09/11/80 Alcohol intake: current Drinks per week: 1 Alcohol use details: social Substance use: never Substance use type: does not use Do You Feel Safe in your Home?: Yes Lack of Transportation: No Lack of Food: Never True Current Housing: I Have Housing Concerned About Future Housing: No Difficulty Paying Gas/Electric Bills: No Difficulty Paying for Meds: No Currently Unemployed: No Education: High School Diploma/GED Difficulty w/ Childcare or Family Care: No Living arrangements: with family Additional living arrangements comments: [facility] Gender identity (if verbalized by the patient): Female Spiritual care concerns: No Exam Const: General: healthy appearing Nutritional Appearance: well nourished Orientation/consciousness: patient oriented x3 Limitations: no limitations Eyes: Conjunctivae: conjunctivae normal Pupils: Equal, round and reactive pupils present Neck: Neck: normal visual inspection Chest: Chest palpation & inspection: normal inspection of the chest Resp: Effort & Inspection: normal respiratory effort Auscultation: clear to auscultation bilaterally Cardio: Rate: regular rate Rhythm: regular rhythm GI: GI Palp: Yes Soft to palpation Auscultation: normal bowel sounds Urinary Catheter: Urinary Catheter: patent and draining Skin: General skin exam: normal color Rashes: no rashes Wounds: no wounds Neuro: General: patient oriented x3, moves all extremities, no meningeal signs and no focal motor deficits Course Course Emergency Course: Patient received IV fluids 1L, blood pressure stable at 120 8/51 EKG performed shows normal sinus rhythm chest x-ray performed shows no acute cardiopulmonary abnormalities, creatinine was 1.8, patient stable for discharge and advised patient to follow-up with primary care physician for possible referral to Nephrology. Vital Signs Vital signs: Vital Signs Temperature 36.7 C 12/01/23 11:10 Pulse Rate 92 12/01/23 11:10 Respiratory Rate 20 12/01/23 11:10 Blood Pressure 128/51 L 12/01/23 11:10 Pulse Oximetry 1
[2023-12-01 13:04] LABS: Bacteria Urine Trace /hpf; RBC Urine None seen /hpf (0-2); Squamous Epithelial Cell Urine Few /hpf (Few); WBC Urine 0-3 /hpf (0-3)
[2023-12-01 13:15] VITALS: BP 119/55; PULSE 67; RESP 18; O2SAT 98
[2023-12-01 13:19] VITALS: TEMP 36.7
== END 2023-12-01 13:19 | disposition home or self-care (01) ==
PROVIDERS: Emergency Provider Emergency Medicine; PCP Emergency Medicine
DX: N28.9 Disorder of kidney and ureter, unspecified (principal); I12.9 Hypertensive chronic kidney disease with stage 1 through stage 4 chronic kidney disease, or unspecified chronic kidney disease; N18.32 Chronic kidney disease, stage 3b; Z87.891 Personal history of nicotine dependence
CPT/HCPCS: 36415; 71045; 80053; 81001; 83605; 84443; 85025; 93005; 96360; 99283; 99285; J7030

== ENCOUNTER 2023-12-15 12:37 | Outpatient (CLI) | payer MEDICARE, SELFPAY ==
--- NOTE | ~2023-12-15 | MR_ITS ---
EXAMINATION: MR hip RT wo con DATE: 12/15/2023 14:28 INDICATION: Right hip trochanteric bursitis TECHNIQUE: Magnetic resonance imaging (MRI) of the right hip was performed without intravenous contr ast. Sequences included full-field axial PD-weighted FS FSE and T1-weighted FSE, coronal of the pelvi s with PD-weighted FS FSE, T2-weighted FSE and T1-weighted FSE, small field of view of the right hip with axial PD-weighted FS FSE, sagittal PD-weighted FS FSE, coronal PD-weighted FS FSE and coronal T2 weighted FSE. Additional radial T1-weighted FGR oriented orthogonal to the acetabular rim were obt ained for evaluation of the labrum. COMPARISON: None FINDINGS: Assessment is moderately limited by combination of varying degrees of motion artifact mild to moderat e severity on the larger [id number]-ur-cisn images and severe on the smaller field of view images which ar e essentially nondiagnostic. There is also a metallic magnetic field artifact such with a right total hip arthroplasty. This obscures portions of the immediately adjacent bone and soft tissues. There is a 5.3 x 3.0 x 2.4 cm fluid collection overlying the right greater trochanter consistent with trochanteric bursitis. No hip joint effusions. Bone marrow signal is normal with no evident reactive edema or, fracture, osteonecrosis or pathologic marrow replacing process. Mild lower lumbar spondylo sis with severe bilateral lower lumbar facet osteoarthritis. Bladder is normal. Multiple diverticula along the sigmoid colon without adjacent from trace stranding to suggest diverticulitis. Normal appen shawn. No pathologically enlarged pelvic or inguinal lymphadenopathy. IMPRESSION: 1. 5.3 x 3.0 x 2.4 cm fluid collection overlying the right greater trochanter which could represent t rochanteric bursitis or residual postoperative seroma related to the right total hip arthroplasty. 2. Diverticulosis. 3. Study limited by mild to severe motion artifact to some degree on all sequences as well as metalli c magnetic field artifact associated with the total hip arthroplasty. Reviewed, dictated and finalized at location A. IMPRESSION: 1. 5.3 x 3.0 x 2.4 cm fluid collection overlying the right greater trochanter w hich could represent trochanteric bursitis or residual postoperative seroma rel ated to the right total hip arthroplasty. 2. Diverticulosis. 3. Study limited by mild to severe motion artifact to some degree on all sequen daily as well as metallic magnetic field artifact associated with the total hip a rthroplasty.
--- NOTE | ~2023-12-15 | MR_ITS ---
EXAMINATION: MR lumbar spine wo con DATE: 12/15/2023 13:51 INDICATION: Low back pain, unspecified. TECHNIQUE: Magnetic resonance imaging (MRI) of the lumbar spine was performed without intravenous con trast. Sequences included sagittal T2-weighted FSE, sagittal T2-weighted FS FSE, sagittal T1-weighted FSE, and axial T2-weighted FSE. COMPARISON: None FINDINGS: There is 8 degrees levocurvature of lumbar spine. There is 5 mm retrolisthesis of L2 on L3. There is a chronic burst fracture of T12 with focal kyphosis and changes of vertebroplasty. There is mild chronic anterior wedging of L1 and L2 vertebral bodies. There is severely decreased disc height at L2-L3 and moderately decreased disc height at L3-L4. The distal spinal cord signal intensity is n ormal. The conus medullaris is at L1. The following disc levels are specifically discussed: L1-L2: The disc does not extend beyond the endplate margin. There is mild bilateral facet joint osteo arthritis. There is no neural foraminal stenosis. There is no central canal stenosis. L2-L3: The disc is bulging. There is severe bilateral facet joint osteoarthritis. There is moderate b ilateral neural foraminal stenosis. There is mild central canal stenosis. L3-L4: The disc is bulging. There is severe bilateral facet joint osteoarthritis. There is mild bilat eral neural foraminal stenosis. There is mild central canal stenosis. L4-L5: The disc is bulging. There is severe bilateral facet joint osteoarthritis. There is mild bilat eral neural foraminal stenosis. There is mild central canal stenosis. L5-S1: The disc is bulging. There is severe bilateral facet joint osteoarthritis. There is mild bilat eral neural foraminal stenosis. There is mild central canal stenosis. IMPRESSION: 1. Severe lumbar spondylosis. Reviewed, dictated and finalized at location A.
--- NOTE | ~2023-12-15 | MR_ITS ---
EXAMINATION: MR thoracic spine wo con DATE: 12/15/2023 13:51 INDICATION: Pain in thoracic spine. TECHNIQUE: Magnetic resonance imaging (MRI) of the thoracic spine was performed without intravenous c ontrast. COMPARISON: None FINDINGS: There is 5 degrees levocurvature of upper thoracic spine on 4 degrees dextrocurvature of lo wer thoracic spine. There is a chronic burst fracture of T12 with 4 mm retropulsion of bone into the central spinal canal, changes of vertebroplasty, and focal kyphosis. There is mildly decreased disc h eight at T11-T12 and the disc do not extend beyond the endplate margins. There is mild central canal stenosis at T12. There is multilevel facet joint osteoarthritis, severe at multiple levels. There is multilevel mild neural foraminal stenosis on either side. At T10-T11, there is moderate right neural foraminal stenosis. The spinal cord signal intensity is normal. The conus medullaris is at L1. IMPRESSION: 1. Moderate right neural foraminal stenosis at T10-T11. Otherwise mild thoracic spondylosis. Reviewed, dictated and finalized at location A.
== END 2023-12-15 12:38 | disposition home or self-care (01) ==
LOC: GOSHIMG 12:39
PROVIDERS: PCP Emergency Medicine; Visit Provider Orthopaedic Surgery
DX: M54.6 Pain in thoracic spine (principal); M54.50 Low back pain, unspecified; M70.61 Trochanteric bursitis, right hip; K57.30 Diverticulosis of large intestine without perforation or abscess without bleeding; Z96.641 Presence of right artificial hip joint; M48.04 Spinal stenosis, thoracic region; M47.814 Spondylosis without myelopathy or radiculopathy, thoracic region; M47.816 Spondylosis without myelopathy or radiculopathy, lumbar region
CPT/HCPCS: 72146; 72148; 73721

== ENCOUNTER 2023-12-15 13:00 | Outpatient (CLI) | payer MEDICARE, SELFPAY ==
--- NOTE | ~2023-12-15 | US_ITS ---
EXAMINATION: US renal BI DATE: 12/15/2023 14:38 INDICATION: Acute kidney injury, unspecified. TECHNIQUE: Multiple ultrasound grayscale images of the kidneys were obtained. COMPARISON: Ultrasound 11/02/2022 FINDINGS: The right kidney measures 7.6 x 3.2 x 4.1 cm. The left kidney measures 6.9 x 2.6 x 3.4 cm. The kidney s demonstrate normal parenchymal echogenicity. There is no hydronephrosis. The bladder is normal. IMPRESSION: 1. Mild atrophy of the kidneys. No hydronephrosis. Reviewed, dictated and finalized at location A.
== END 2023-12-15 13:01 | disposition home or self-care (01) ==
LOC: GOSHIMG 13:01
PROVIDERS: PCP Emergency Medicine; Visit Provider Internal Medicine Nephrology
DX: N26.1 Atrophy of kidney (terminal) (principal); N17.9 Acute kidney failure, unspecified; N18.32 Chronic kidney disease, stage 3b
CPT/HCPCS: 76775

== ENCOUNTER 2023-12-16 10:02 | Outpatient (CLI) | payer MEDICARE, SELFPAY ==
--- NOTE | ~2023-12-16 | NM_ITS ---
EXAMINATION: NM kaleb stress w perfusion DATE: 12/16/2023 12:25 INDICATION: Chest pain TECHNIQUE: Rest images were obtained following intravenous administration of 9 mCi Tc99m tetrofosmin (Myoview). The patient was infused intravenously with Lexiscan (Regadenoson). Then, 28.7 mCi Tc99m te trofosmin (Myoview) was administered intravenously, and stress images were obtained. Data was reconst ructed into short axis and horizontal and vertical long axis SPECT images. Gated SPECT images were al so obtained. COMPARISON: None. FINDINGS: There is no definite reversible or fixed perfusion abnormality to suggest ischemia or infar ction. There is normal left ventricular chamber size, wall motion and ejection fraction. Left ventr icular ejection fraction measures >70%. IMPRESSION: 1. Normal myocardial perfusion at rest and during stress. 2. Left ventricular ejection fraction measuring >70%. Reviewed, dictated and finalized at location A.
--- NOTE | 2023-12-16 10:13 | EST_ITS ---
Patient Info Name: Annia Larsen Age: 73 years : 1950 Gender: Female Ht: 60 in Wt: 132 lbs BSA: 1.61 m2 HR: 73 bpm BP: 116 / 66 mmHg Heart Rhythm: Sinus Rhythm Exam Date: 12/16/2023 12:14 PM Exam Location: Echo Lab Patient Status: Outpatient Admit Date: 12/16/2023 Staff Ordering Physician: Ervin Hernandez MD Attending Provider: Ervin Hernandez MD Exercise Technologist: Brenda Lugo CT Exercise Physician: Jon Prabhakar DO Exam Type: CA stress kaleb w NM Study Info Indications I20.8 - Other forms of angina pectoris A regadenoson stress test was performed. Summary 1. 1. Negative lexiscan stress test for ischemic ST changes by ECG criteria. 2. 2. Stable hemodynamics throughout the test. 3. 3. Nuclear scan to follow and will be reported separately. Please correlate with it. 4. 4. Patient informed of the above results. Protocol: Lexiscan Stress ECG Details Stage: REST Duration (min): 1 min : 22 sec HR (bpm): 75 SBP (mmHg): 116 DBP (mmHg): 66 Stage: REST Duration (min): 1 min : 41 sec HR (bpm): 75 SBP (mmHg): 116 DBP (mmHg): 66 Stage: REST Duration (min): 7 min : 15 sec HR (bpm): 78 SBP (mmHg): 116 DBP (mmHg): 66 Stage: STAGE 1 Duration (min): 1 min : 0 sec HR (bpm): 95 SBP (mmHg): 126 DBP (mmHg): 75 Stage: RECOVERY Duration (min): 1 min : 0 sec HR (bpm): 98 SBP (mmHg): 126 DBP (mmHg): 75 Stage: RECOVERY Duration (min): 2 min : 0 sec HR (bpm): 96 SBP (mmHg): 126 DBP (mmHg): 75 Stage: RECOVERY Duration (min): 3 min : 0 sec HR (bpm): 95 SBP (mmHg): 126 DBP (mmHg): 75 Stage: RECOVERY Duration (min): 3 min : 16 sec HR (bpm): 96 SBP (mmHg): 140 DBP (mmHg): 65 Rest HR: 78 bpm Peak HR: 99 bpm Rest Sys BP: 116 mmHg Peak Sys BP: 140 mmHg Max Pred HR: 146 bpm % Max Pred HR: 68 % Target HR: 124 bpm Max RPP: 13,860 bpm*mmHg Termination Reason: Completed protocol Cardiac Symptoms: Shortness of breath, Stomach discomfort Total Time: 1 min : 0 sec Rest Watson BP: 66 mmHg Peak Watson BP: 65 mmHg Total Dose: 0.4 mg Resting ECG Sinus rhythm. Stress ECG No ST changes. Arrhythmias None. Report Signatures
[2023-12-16 13:41] LABS: Add Urine Microscopic? NO; Appearance Urine Clear (Clear); Bilirubin Urine Negative (Negative); Blood Urine Negative (Negative); Color Urine Yellow (Yellow); Glucose Urine UA Negative (Negative); Ketones Urine Negative (Negative); Leukocyte Esterase Ur Negative LEU/UL (Negative); Nitrate Urine Negative (Negative); Protein Urine Negative (Negative); Specific Grav Ur 1.008 (1.001-1.035); Urobilinogen Urine 0.2 mg/dL (<2.0); pH Urine 6.5 (5.0-9.0)
[2023-12-16 13:52] LABS: Albumin Level 4.3 g/dL (3.5-5.1); Anion Gap 9 mmol/L (4-12); Blood Urea Nitrogen 20 mg/dL (7-17); Carbon Dioxide 26 mmol/L (22-30); Chloride 100 mmol/L (98-107); Estimated Glomerular Filt Rate 37; Glucose 118 mg/dL (65-110); Phosphorus 4.4 mg/dL (2.5-4.5); Potassium 4.2 mmol/L (3.4-5.0); Sodium 135 mmol/L (137-145)
== END 2023-12-16 10:03 | disposition home or self-care (01) ==
PROVIDERS: Internal Medicine Nephrology; PCP Emergency Medicine; Visit Provider Emergency Medicine
DX: N17.9 Acute kidney failure, unspecified (principal); N18.32 Chronic kidney disease, stage 3b; I20.89 Other forms of angina pectoris
CPT/HCPCS: 36415; 78452; 80069; 81003; 93017; A9502; J2785

== ENCOUNTER 2024-05-08 09:41 | Outpatient (CLI) | payer MEDICARE, SELFPAY ==
--- OUTSIDE RECORDS SUMMARY | 2024-05-08 10:49 | XMS_ITS | Patient Health Summary ---
Author Organization [facility] Address [address] [place] [address] Care Team Providers Care Infusion Rn Name Role Phone Den Arias MD Primary Care Provider [phone] [facility],non-owned Affiliates and Associated Physician Practices is amultiple site organization consisting of ambulatory clinics and hospital sitesin [place], [place] and [place]. This disclosure is being madepursuant to the Care Everywhere program and may not contain all information available regarding this patient. Last updated 17.[facility] Allergies No known active allergies Medications * Be aware that medications may not be up to date on this document. Alwaysverify current medications with the patient. * lisinopril (PRINIVIL; ZESTRIL) 20 MG tablet Take 20 mg by mouth once daily Reasons: High Blood Pressure Disorder * celecoxib (CELEBREX) 200 MG capsule Take 200 mg by mouth once daily * Multiple Vitamins-Minerals (ONE-A-DAY WOMENS 50+ ADVANTAGE PO) * HYDROcodone-acetaminophen (NORCO) 5-325 MG tablet(Started 09/01/2020) Take 1 (one) tablet by mouth every 6 hours as needed for Pain * traMADol (ULTRAM) 50 MG tablet(Started 09/12/2020) Take 50 mg by mouth every 6 hours as needed * Cholecalciferol (VITAMIN D3) 1.25 MG (27386 UT) capsule Take 50,000 Units by mouth every 7 days * methylPREDNISolone (MEDROL DOSEPAK) 4 MG tablet(Started 11/03/2020) Take by mouth as directed Take as directed by mouth per package instructions. * lidocaine (LMX 4) 4 % cream(Started 11/03/2020) APPLY TO SKIN UP TO FOUR TIMES DAILY NEEDED TO REDUCE PAIN Active Problems Problem Noted Date Diagnosed Date Back pain of thoracolumbar region 11/03/2020 Closed fracture of twelfth thoracic vertebra 03/2020 Leg pain 12/14/2010 Thoracic compression fracture, closed, initial e ncounter Radicular pain of thoracic region Immunizations * INFLUENZA VACCINE, QUADR. (FLUZONE; FLULAVAL; FLUARIX; AFLURIA QUADRIVALENT; 6MO+), 0.5 ML (IIV4)(Given 01/13/2020) * TDAP (7yrs+)(Given 12/14/2010) Social History Tobacco Use Types Packs/Day Years Used Date Smoking Tobacco: Never Smokeless Tobacco: Never Tobacco Cessation:Counseling Given: No Alcohol Use Standard Drinks/Week Comments Yes 0 (1 standard drink = 0.6 oz pur e alcohol) AUDIT-C Answer Date Recorded Q1: How often do you have a drink containing alc ohol? 2-4 times a month 08/12/2020 Q2: How many drinks containi ng alcohol do you have on a typical day when you are drinking? 1 or 2 08/12/2020 Q3: How often do you have si x or more drinks on one occasion? Never 08/12/2020 Sex and Gender Information Value Date Recorded Sex Assigned at Not on file Gender Identity Not on file Sexual Orientation Not on file Last Filed Vital Signs Vital Sign Reading Time Taken Comments Blood Pressure 150/79 11/13/2020 1:38 PM CDT Pulse 54 11/13/2020 2:12 PM CDT Temperature 36.7 C (98 F) 11/13/2020 1:38 PM CDT Respiratory Rate 16 11/13/2020 2:12 PM CDT Oxygen Saturation 100% 11/13/2020 2:12 PM CDT Inhaled Oxygen Concentration - - Weight 64.9 kg (143 lb) 11/03/2020 12:57 PM CDT Height 154.9 cm (5' 1 ) 11/03/2020 12:57 PM CDT Body Mass Index 27.02 11/03/2020 12:57 PM CDT Medical Devices Implanted Type Area Hospice Home Health Aide Device Identifier Shelf Expiration Date Model / Serial / Lot Cmnt Bone Kyphon Xpede Spnl Mxr Implanted:Qty: 1 on 08/14/2020 by Rich Paul MD at [facility] N/A: Thor[employer] 05/11/2028 [id number] / / [id number] Description:bone cement Procedures * VAS ARTERIAL ANKLE ARM INDEX(Performed 10/27/2022) Performed for PVD (peripheral vascular disease) ([facility]) * PAIN MANAGEMENT PROCEDURE TIME(Performed 11/13/2020) Performed for Radicular pain of thoracic region * CBC W AUTO DIFFERENTIAL W/O PLATELETS(Performed 11/03/2020) * PT-INR(Performed 11/03/2020) Performed for Abnormal bruising, Herpes zoster without complication * PTT(Performed 11/03/2020) Performed for Abnormal bruising, Herpes zoster without complication * XR THORACIC SPINE 2VW(Performed 10/13/2020) Performed for Thoracic compression fracture, closed, initial encounter ([facility]) * PT EVAL AND TREAT(Performed 08/14/2020) * OT EVAL AND TREAT(Performed 08/14/2020) * CT THORACIC SPINE WO CONTRAST(Performed 08/14/2020) Performed for Closed wedge compression fracture of T12 vertebra, initial encounter ([facility]) * FL ANA SURGERY(Performed 08/14/2020) Performed for Acute midline thoracic back pain * ENDOTRACHEAL TUBE NOTE(Performed 08/14/2020) * KYPHOPLASTY(Performed 08/14/2020) Performed for Compression fracture of T12 vertebra, sequela * CBC W AUTO DIFFERENTIAL(Performed 08/14/2020) * BASIC METABOLIC PANEL (CALCIUM TOTAL)(Performed 08/14/2020) * PTT [facility](Performed 08/13/2020) * PT-INR [facility](Performed 08/13/2020) * CBC W AUTO DIFFERENTIAL(Performed 08/13/2020) * BASIC METABOLIC PANEL (CALCIUM TOTAL)(Performed 08/13/2020) * SARS-COV-2 (COVID-19)+INFLU A+B PCR RAPID(Performed 08/12/2020) Performed for Thoracic compression fracture, closed, initial encounter ([facility]) * MRI THORACIC SPINE WO CONTRAST(Performed 08/12/2020) Performed for Acute midline thoracic back pain * MAMMO BILAT SCREENING(Performed 02/25/2015) Performed for Visit for screening mammogram * MAMMO BILAT SCREENING(Performed 01/15/2014) Performed for Other screening mammogram * DEXA BONE DENSITY AXIAL SKELETON(Performed 01/15/2014) Performed for Screening for osteoporosis * MRI FOOT RIGHT WO CONTRAST(Performed 01/16/2013) Performed for Foot pain, AVN (avascular necrosis of bone) (HCC) * XR ANKLE LEFT 3VW OR MORE(Performed 12/14/2010) Performed for Leg pain Results * VAS ARTERIAL ANKLE ARM INDEX (10/27/2022 11:26 AM CDT) Anatomical Region Laterality Modality Ankle / Foot, Upper Extremity In travascular Ultrasound 10/27/2022 11:1 0 AM CDT Narrative Procedure Note Jabari Ching Sr., MD - 10/27/2022 [facility] [address] [place] [address] Lower Extremity Arterial Doppler Report Pat.Name: CATHI ANNIA Marino Pat.ID: [id number] .Date: 10/27/2022 Exam Time: 11:10:00 AM Study Type:DELMIS/PVR Age: 11 1950,72Y Sex: FEMALE Sonogrphr: Shaye Plaza RVT, [facility] Pat. Stat.:Outpatient CPT - 4: 13785 Reason for Study: Pain of right leg and hip (not induced by exercise). PVD History / Clinical: Hypertension, Smoking - quit >6mo. Procedures: Ankle Arm Index Visit ID: [id number] ++++++++++++++++++++++++++++++++++++ SUMMARY: ++++++++++++++++++++++++++++++++++++ No evidence for significant arterial insufficiency of either the right or left lower extremity at rest. ++++++++++++++++++++++++++++++++++++ FINDINGS: ++++++++++++++++++++++++++++++++++++ Procedure: The arterial vasculature of the lower extremities was evaluated by analysis of Doppler pressures and waveforms obtained in the legs at rest. Study Quality: This study is of adequate technical quality. Doppler Waveforms: Right Left Common Fem Triphasic Triphasic Popliteal Triphasic Triphasic Posterior Tibial Triphasic Triphasic Dorsalis Pedis Triphasic Triphasic ++++++++++++++++++++++++++++++++++++ MEASUREMENTS: ++++++++++++++++++++++++++++++++++++ PRESSURES Left DELMIS (DP) DELMIS (DP) 1.2 Left DELMIS (PT) DELMIS (PT) 1.2 Left Ankle DP AnkleDP P 153 mmHg Left Ankle PT AnklePT P 153 mmHg Left Brachial Brach P 133 mmHg Right DELMIS (DP) DELMIS (DP) 1 Right DELMIS (PT) DELMIS (PT) 1 Right Ankle DP AnkleDP P 136 mmHg Right Ankle PT AnklePT P 137 mmHg Right Brachial Brach P 129 mmHg Signed 10/27/2022 12:29 PM Jabari Ching MD, VI Den Arias MD VASCULAR LAB ORDERAB LES * PAIN MANAGEMENT PROCEDURE TIME (11/13/2020 2:15 PM CDT) Anatomical Region Laterality Modality Radio Fluoroscop y Narrative 11/13/2020 2:15 PM CDT Devin Murray MD 11/13/2020 2:17 PM Thoracic T 12/L 1 midline Epidural Steroid Injection With x ray guidance Consent: The patient was identified in the holding area and the operative permit was explained and signed. I have discussed with the patient the risks, benefits, side effects and complications of a fluoroscopically guided thoracic epidural steroid injection with catheter. I have answered the patient's questions regarding the procedure and have given the patient the opportunity to refuse the procedure. I also have discussed alternative methods of treatment. The patient stated understanding of the procedure and wished to proceed with the fluoroscopically guided thoracic epidural steroid injection with catheter. Monitoring: The patient was taken to the fluoroscopic suite and placed on a C-arm table in the prone position. Noninvasive blood pressure, pulse oximetry, and an EKG tracing were used to monitor the patient continuously throughout the procedure. A nurse was in attendance for the duration of the procedure to carefully monitor the patient. Please refer to the nursing record for vital sign documentation and for any doses of sedatives and medications. I was present and gave the order for any medications given to the patient. Preparation: Chloroprep preparation was performed twice, then sterile drapes were applied to the thoracic spine area of the skin. Procedure: The C-arm was positioned in the lateral view to identify thoracic spine. A 27 gauge 1.5 inch was then used to inject 1.5 ml of Lidocaine 1% for subcutaneous anesthesia. Using fluoroscopic guidance and ROSALEE to saline tecnique a 3.5 inch touhy epidural needle was advanced into the epidural space under fluoroscopy in lateral then AP view to the target level. After negative aspiration of CSF or blood, 0.5 ml of Omnipaque (240mg/ml) was injected, which displayed epidural spread in the posterior epidural space. A preservative free solution of 10 ml containing 10 mg dexamthasone and 5 cc NSPF was injected. The needle and catheter system was withdrawn intact. The patient tolerated the procedure well and there were no complications. Recovery: The patient was taken to the recovery area where they remained in stable condition. Postprocedure instructions were given to the patient and a follow up appointment was confirmed. The patient was also discharged with information on how to reach the clinic or personnel counselor physician at anytime for questions or complaints. Devin Murray MD DIAGNOSTIC IMAGING O RDERABLES * PT-INR (11/03/2020 2:26 PM CDT) INR 0.9 0.9 - 1.2 [facility] INSURANCE BILL Comment: Reference interval is for non-anticoagulated patients. . Suggested INR therapeutic range for Vitamin K antagonist therapy: Standard Dose (moderate intensity therapeutic range): 2.0 - 3.0 Higher intensity therapeutic range 2.5 - 3.5 PT 10.1 9.1 - 12.0 sec [facility] INSURANCE BILL Comment:FASTING Blood BLOOD SPECIMEN / Unknown 11/03/2020 2:26 PM CDT 11/03/2020 Narrative Resulting Agency Comment Lab Testing performed at: [facility] [address] [id number] Devin Murray MD LAB - COAGULATION OR DERABLES [facility] INSURANCE BILL [address] [place] [address] * (ABNORMAL) CBC W AUTO DIFFERENTIAL W/O PLATELETS (11/03/2020 2:26 PM CDT) WBC 4.4 3.4 - 10.8 x10E3/uL [facility] INSURANCE BILL RBC 3.66(L) 3.77 - 5.28 x10E6/uL [facility] INSURANCE BILL Hemoglobin 12.7 11.1 - 15.9 g/dL [facility] INSURANCE BILL Hematocrit 37.4 34.0 - 46.6 % [facility] INSURANCE BILL MCV 102(H) 79 - 97 fL [facility] INSURANCE BILL MCH 34.7(H) 26.6 - 33.0 pg [facility] INSURANCE BILL MCHC 34.0 31.5 - 35.7 g/dL [facility] INSURANCE BILL RDW 12.4 11.7 - 15.4 % [facility] INSURANCE BILL Granulocytes % 67 Not Estab. % [facility] INSURANCE BILL Lymphocytes % 22 Not Estab. % [facility] INSURANCE BILL Monocytes % 8 Not Estab. % [facility] INSURANCE BILL Eosinophils % 2 Not Estab. % [facility] INSURANCE BILL Basophils % 1 Not Estab. % [facility] INSURANCE BILL Immature Cells NOT NEEDED [facility] INSURANCE BILL Comment:Ancillary determined the test is not needed. Granulocytes Absolute 2.9 1.4 - 7.0 x10E3/uL [facility] INSURANCE BILL Lymphocytes Absolute 0.9 0.7 - 3.1 x10E3/uL [facility] INSURANCE BILL Monocytes Absolute 0.4 0.1 - 0.9 x10E3/uL [facility] INSURANCE BILL Eosinophils Absolute 0.1 0.0 - 0.4 x10E3/uL [facility] INSURANCE BILL Basophils Absolute 0.0 0.0 - 0.2 x10E3/uL [facility] INSURANCE BILL Immature Granulocytes 0 Not Estab. % [facility] INSURANCE BILL Immature Granulocytes Absolute 0.0 0.0 - 0.1 x10E3/uL [facility] INSURANCE BILL nRBC NOT NEEDED [facility] INSURANCE BILL Comment:Ancillary determined the test is not needed. Comment Hematology NOT NEEDED [facility] INSURANCE BILL Comment: FASTING Ancillary determined the test is not needed. 11/03/2020 2:26 PM CDT 11/03/2020 Narrative Resulting Agency Comment Lab Testing performed at: [address] [id number] Devin Murray MD LAB - HEMATOLOGY ORD ERABLES Performing Organization Address [facility] Co de Phone Number [facility] INSURANCE BILL [address] [place] [address] * (ABNORMAL) PTT (11/03/2020 2:24 PM CDT) PTT 23(L) 24 - 33 sec [facility] INSURANCE BILL Comment: This test has not been validated for monitoring unfractionated heparin therapy. aPTT-based therapeutic ranges for unfractionated heparin therapy have not been established. For general guidelines on Heparin monitoring, refer to the [facility] Directory of Services. FASTING Blood BLOOD SPECIMEN / Unknown 11/03/2020 2:24 PM CDT 11/03/2020 Narrative Resulting Agency Comment Lab Testing performed at: [facility] [id number] Devin Murray MD LAB - COAGULATION OR DERABLES Performing Organization Address [facility] de Phone Number [facility] INSURANCE BILL [address] [place] [address] * XR THORACIC SPINE 2VW (10/13/2020 3:10 PM CDT) Anatomical Region Laterality Modality Spine Radiographic Rosa Isela ging 10/13/2020 3:13 PM CDT Impressions 10/13/2020 4:09 PM CDT Compression deformity with vertebroplasty changes T12. Edited by Aurora Benítez on 10/13/2020 3:25 PM *Reading Radiologist: Robby Augustine on 10/13/2020 at 4:09 PM Narrative 10/13/2020 4:09 PM CDT THORACIC SPINE. HISTORY: Follow-up T12 compression fracture. AP and lateral views show vertebroplasty changes in T12 which has a wedged appearance. I have no prior radiographs for direct comparison. Other vertebrae have normal heights. Interspace heights are in the normal range. Spurring is noted in the lumbar spine. Procedure Note Robby Augustine MD - 10/13/2020 THORACIC SPINE. HISTORY: Follow-up T12 compression fracture. AP and lateral views show vertebroplasty changes in T12 which has a wedged appearance. I have no prior radiographs for direct comparison. Other vertebrae have normal heights. Interspace heights are in the normal range. Spurring is noted in the lumbar spine. IMPRESSION Compression deformity with vertebroplasty changes T12. Edited by Aurora Benítez on 10/13/2020 3:25 PM *Reading Radiologist: Robby Augustine on 10/13/2020 at 4:09 PM Barbara Zepeda FOREIGN SERVICE OFFICER-DRUG ABUSE COUNSELOR DIAGNOSTIC IMAGING O RDERABLES * CT THORACIC SPINE WO CONTRAST (08/14/2020 8:32 AM CDT) Anatomical Region Laterality Modality Spine Computed Tomogra phy 08/14/2020 12:4 8 PM CDT Impressions 08/14/2020 1:29 PM CDT IMPRESSION: 1.Postoperative changes of kyphoplasty for a T12 superior endplate compression fracture, with christianity of some of the anterior height loss and decreased kyphosis at this level. 2.There is unchanged retropulsion of about 4 mm with mild central canal stenosis at T12. 3.There is unchanged nondisplaced horizontal fracture of T12 spinous process. Dictated by Reena Tarango MD (vice president of communications). This report was approved by Reena Taranog on 08/14/2020 1:29 PM . I, Dr. ESEQUIEL NJ have personally reviewed and interpreted this examination/study. This report was electronically signed by ESEQUIEL NJ on 08/14/2020 1:29 PM . Narrative 08/14/2020 1:[address] THORACIC SPINE WO CONTRAST DATE: 08/14/2020 8:33 AM EXAMINATION: CT of the thoracic spine without contrast HISTORY: S22.080A: Closed wedge compression fracture of T12 vertebra, initial encounter, status post kyphoplasty TECHNIQUE: CT of the thoracic spine was performed without contrast according to standard protocol. Reformatted axial, sagittal, and coronal images of the thoracic spine were obtained by the technologist and sent to the workstation for review. COMPARISON: Outside hospital CT thoracic spine dated 08/11/2020, MRI thoracic spine without contrast dated 08/12/2020. FINDINGS: The alignment is normal. Postoperative changes of kyphoplasty for the T12 fracture with christianity of some of the anterior height loss seen on prior. The previously demonstrated exaggerated kyphosis at this level is improved. The 4 mm retropulsion with mild narrowing of the spinal canal at this level is unchanged. The nondisplaced horizontally oriented fracture of the spinous process of T12 is unchanged. There are small locules of air in the posterior aspect of the right paraspinal muscle, likely representing postoperative changes. The intervertebral discs appear normal. No no significant spinal canal stenosis at the remaining levels. There is mild bilateral facet osteoarthritis at T8-T9, T9-T10 and T10-T11. No neural foraminal stenosis is seen. There is subsegmental atelectasis in the dependent portions of the lung bases. Procedure Note Esequiel Nj MD - 08/14/2020 CT THORACIC SPINE WO CONTRAST DATE: 08/14/2020 8:33 AM EXAMINATION: CT of the thoracic spine without contrast HISTORY: S22.080A: Closed wedge compression fracture of T12 vertebra, initial encounter, status post kyphoplasty TECHNIQUE: CT of the thoracic spine was performed without contrast according to standard protocol. Reformatted axial, sagittal, and coronal images of the thoracic spine were obtained by the technologist and sentto the workstation for review. COMPARISON: Outside hospital CT thoracic spine dated 08/11/2020, MRI thoracic spine without contrast dated 08/12/2020. FINDINGS: The alignment is normal. Postoperative changes of kyphoplasty for theT12 fracture with christianity of some of the anterior height loss seen on prior. The previously demonstrated exaggerated kyphosis at this level is improved. The 4 mm retropulsion with mild narrowing of the spinal canalat this level is unchanged. The nondisplaced horizontally oriented fracture of the spinous process of T12 is unchanged. There are small locules ofair in the posterior aspect of the right paraspinal muscle, likely representing postoperative changes. The intervertebral discs appear normal. No no significant spinal canal stenosis at the remaining levels. There is mild bilateral facet osteoarthritis at T8-T9, T9-T10 [id number]. No neural foraminal stenosis is seen. There is subsegmental atelectasisin the dependent portions of the lung bases. IMPRESSION: 1.Postoperative changes of kyphoplasty for a T12 superior endplate compression fracture, with christianity of some of the anterior heightloss and decreased kyphosis at this level. 2.There is unchanged retropulsion of about 4 mm with mild central canal stenosis at T12. 3.There is unchanged nondisplaced horizontal fracture of T12 spinous process. Dictated by Reena Tarango MD (vice president of communications). This report was approved by Reena Tarango on 08/14/2020 1:29 PM . I, Dr. ESEQUIEL NJ have personally reviewed and interpreted this examination/study. This report was electronically signed by ESEQUIEL NJ on08/14/2020 1:29 PM . Rich Paul MD CT ORDERABLES * FL ANA SURGERY (08/14/2020 6:00 AM CDT) Narrative [facility] - 08/14/2020 6:38 AM CDT Fluoroscopy was used for this exam in the OR. Please see the Operative report. Rich Paul MD FLUOROSCOPY ORDE [facility] * ETT LINE PERFORMABLE (08/14/2020 5:30 AM CDT) Narrative Kristin Mcwilliams MD - 08/14/2020 5:30 AM CDT Kristin Mcwilliams MD 08/14/2020 5:30 AM Endotracheal Tube Placement: Patient Location: OR. Intubation Event Date/Time: 08/14/2020 4:51 AM Procedure: intubation (21009). Procedure Section: Sedation: under general anesthesia. Indications for Airway Management: anesthesia Induction: standard IV Patient Position: sniffing and supine Mask Ventilation: easy. Blade Type: David Blade Size: 3 Laryngoscopy View: grade 1 (full cords) Intubation Adjuncts: stylet Tube: endotracheal tube Placement: oral Tube type: cuff - inflated Tube Size (MM): 7 Depth of Insertion (CM): 22 Measured From: lips Cuff Inflated With: air Number of Attempts: 1. Placement Verified By: direct visualization, bilateral breath sounds, CO2 monitor and chest auscultation Tube secured with: adhesive tape. Dentition unchanged? Yes Difficult Airway? No. Procedure Start Time: 08/14/2020 4:51 AM. Staff Section Anesthesia Provider: Kristin Mcwilliams MD, Performed the procedure Pepito Garcia MD GENERAL ANESTHESIA O RDERABLES * (ABNORMAL) CBC W AUTO DIFFERENTIAL (08/14/2020 1:35 AM T) Only the most recent of2 resultswithin the time period is included. WBC 5.7 3.5 - 10.5 10 3/uL 08/14/2020 3:36 AM [facility] RBC 4.08 3.80 - 5.20 10 6/uL 08/14/2020 3:36 AM [facility] Hemoglobin 13.2 12.0 - 15.6 g/dL 08/14/2020 3:36 AM [facility] Hematocrit 39.3 35.0 - 45.0 % 08/14/2020 3:36 AM [facility] MCV 96.3 80.7 - 98.3 fL 08/14/2020 3:36 AM [facility] MCH 32.4 26.7 - 34.0 pg 08/14/2020 3:36 AM [facility] MCHC 33.6 30.8 - 35.9 g/dL 08/14/2020 3:36 AM [facility] Platelet Count 178 150 - 400 10 3/uL 08/14/2020 3:36 AM [facility] RDW-SD 45.5 36.0 - 50.0 fL 08/14/2020 3:36 AM [facility] RDW-CV 12.8 11.2 - 14.8 % 08/14/2020 3:36 AM [facility] MPV 9.7 9.4 - 12.9 fL 08/14/2020 3:36 AM [facility] nRBC Absolute 0.00 0 10 3/uL 08/14/2020 3:36 AM [facility] nRBC Auto 0.0 0 /100 WBC 08/14/2020 3:36 AM [facility] Neutrophils % 77.1(H) 35.0 - 70.0 % 08/14/2020 3:36 AM [facility] Lymphocytes % 13.0(L) 20.0 - 43.0 % 08/14/2020 3:36 AM [facility] Monocytes % 7.7 5.0 - 13.0 % 08/14/2020 3:36 AM [facility] Eosinophils % 1.4 0.0 - 6.0 % 08/14/2020 3:36 AM [facility] Basophil % 0.4 0.0 - 2.0 % 08/14/2020 3:36 AM [facility] Neutrophils Absolute 4.4 1.6 - 7.0 10 3/uL 08/14/2020 3:36 AM [facility] Lymphocyte Absolute 0.7(L) 1.1 - 3.9 10 3/uL 08/14/2020 3:36 AM [facility] Monocytes Absolute 0.44 0.26 - 1.07 10 3/uL 08/14/2020 3:36 AM [facility] Eosinophils Absolute 0.08 0.00 - 0.47 10 3/uL 08/14/2020 3:36 AM [facility] Basophils Absolute 0.02 0.00 - 0.08 10 3/uL 08/14/2020 3:36 AM [facility] Immature Granulocytes % 0.4 0.0 - 1.0 % 08/14/2020 3:36 AM [facility] Immature Granulocytes Absolute 0.02 08/14/2020 3:36 AM [facility] Blood BLOOD SPECIMEN / Unknown Lab Venipuncture / Unknown 08/14/2020 1:35 AM CDT 08/14/2020 3:09 AM T Rich Paul MD LAB - HEMATOLOGY ORDERABLES [facility] [address] [place] [address], [facility] [phone] * (ABNORMAL) BASIC METABOLIC PANEL (CALCIUM TOTAL) (08/14/2020 1:35 AM CDT) Only the most recent of2 resultswithin the time period is included. BUN 18 7 - 26 mg/dL 08/14/2020 3:42 AM [facility] Creatinine 0.82 0.56 - 0.96 mg/dL 08/14/2020 3:42 AM [facility] Sodium 139 136 - 145 mmol/L 08/14/2020 3:42 AM [facility] Potassium 4.0 3.5 - 4.5 mmol/L 08/14/2020 3:42 AM [facility] Chloride 103 98 - 107 mmol/L 08/14/2020 3:42 AM [facility] CO2 25 22 - 29 mmol/L 08/14/2020 3:42 AM [facility] Glucose 82 70 - 115 mg/dL 08/14/2020 3:42 AM [facility] Calcium 8.8 8.4 - 10.2 mg/dL 08/14/2020 3:42 AM [facility] HOSPITAL Anion Gap 15 8 - 18 08/14/2020 3:42 AM [facility] BUN/Creatinine Ratio 22 7 - 23 08/14/2020 3:42 AM [facility] Osmolality Calculated 289 270 - 300 mOsm/kg 08/14/2020 3:42 AM [facility] eGFR by CKD-EPI 72(L) >=90 mL/min/1.7 3 m2 08/14/2020 3:42 AM [facility] Blood BLOOD SPECIMEN / Unknown Lab Venipuncture / Unknown 08/14/2020 1:35 AM CDT 08/14/2020 3:10 AM CDT Rich Paul MD LAB - CHEMISTRY ORDERABLES [facility] [address] [place] [address], [facility] [phone] * PTT [facility] (08/13/2020 9:55 AM CDT) APTT 28.7 23.0 - 38.4 Seconds 08/13/2020 10:22 AM CDT [facility] Comment:Suggested therapeuti c range for full dose I.V. unfractionated heparin therapy for venous thromboembolism is 71 to 109 seconds. Blood BLOOD SPECIMEN / Unknown Lab Venipuncture / Unknown 08/13/2020 9:55 AM CDT 08/13/2020 10:13 AM CDT Kailey DURAN LAB - COAGULATION OR DERABLES Performing Organization Address City/[facility]/ZIP Co de Phone Number [address] [address], [facility] [phone] * PT-INR [facility] (08/13/2020 9:55 AM CDT) PT 12.6 12.1 - 14.8 Seconds 08/13/2020 10:22 AM CDT [facility] INR 1.0 See Comment 08/13/2020 10:22 AM CDT [facility] Comment:The suggested therap eutic range for standard coumadin (warfarin) therapy is an INR of 2.0-3.0. For high-risk patients (Mechanical Mitral Valve Prosthesis, etc.), the suggested prophylactic therapeutic range is an INR of 2.5-3.5. Blood BLOOD SPECIMEN / Unknown Lab Venipuncture / Unknown 08/13/2020 9:55 AM CDT 08/13/2020 10:13 AM CDT Kailey DURAN LAB - COAGULATION OR DERABLES [address] [address], [facility] [phone] * SARS-COV-2 (COVID-19)+INFLU A+B PCR RAPID (08/12/2020 5:02 PM CDT) COVID-19 PCR Not detected Not detected 08/13/19 5:35 PM CDT [facility] Influenza A Rapid LACIE Not Detected Not Detected 08/12/2020 5:35 PM CDT [facility] Influenza B LACIE Rapid Not Detected Not Detected 08/12/2020 5:35 PM CDT [facility] Microbiology SPECIMEN FROM NASOPHARYNGEAL STRUCTURE / Unknown Collection / Unknown 08/12/2020 5:02 PM CDT 08/12/2020 5:11 PM CDT Narrative [facility] - 08/12/2020 5:35 PM CDT Influenza assay performed by Nucleic Acid Amplification. Results do not exclude the possibility of a mixed viral infection. NOTE: Detecting and identifying specific viral nucleic acids from individuals exhibiting signs and symptoms of respiratory infection aids in the diagnosis of respiratory infection, if used in conjunction with other clinical and laboratory findings. The results of this test should not be used as the sole basis for diagnosis, treatment, or patient management decisions. This nucleic acid amplification assay performance was validated by [facility]. This test has been authorized by the Food and Drug administration (FDA)under an Emergency Use Authorization (EUA). This test has been validated in accordance with the FDA's guidance document Policy for Diagnostic Testing in Laboratories Certified to perform High Complexity Testing under CLIA prior to Emergency Use Authorization for Coronavirus Disease-2019 during the Public Health Emergency issued on May 12, 2019. FDA independent review of this validation is pending. This test is only authorized for the duration of time the declaration that circumstances exist justifying the authorization of emergency use of in vitro diagnostic tests for detection of SARS-CoV-2 virus and/or diagnosis of COVID-19 infection under section 564(b)(1) of the Act, 21 U.S.C 360bbb-3 (b)(1), unless the authorization is terminated or revoked sooner. Fact Sheets for this EUA assay are available upon request. Perry Kent MD LAB - MICROBIOLOGY O MARC [facility] [address] [place] [phone], [facility] [phone] * MRI THORACIC SPINE WO CONTRAST (08/12/2020 9:48 AM CDT) Anatomical Region Laterality Modality Chest Magnetic Resonan ce 08/12/2020 10:0 4 AM CDT Impressions 08/12/2020 10:54 AM CDT IMPRESSION: 1.Acute compression fracture of T12 with approximately 30% height loss and approximately 4 mm retropulsion. Disruption of the posterior longitudinal ligament. Involvement of the posterior elements is better visualized on the recent CT scan. Mild edema of the interspinous soft tissues. 2.Trace epidural hemorrhage. 3.No cord compression or cord edema. Dictated by Eliot Vickers MD (vice president of communications). I, Dr. BETH DOMINGUEZ have personally reviewed and interpreted this examination/study. This report was electronically signed by BETH DOMINGUEZ on 08/12/2020 10:54 AM . Narrative 08/12/2020 10:54 AM CDT EXAMINATION: Magnetic resonance imaging (MRI) of the thoracic spine without contrast HISTORY: M54.6: Acute midline thoracic back pain TECHNIQUE: MRI of the cervical spine was performed without contrast according to standard protocol. COMPARISON: CT of the thoracic spine dated 08/11/2020 performed at an outside institution FINDINGS: There is acute compression fracture of the superior endplate of T12. There is approximately 30% vertebral body height loss anteriorly, resulting in focal kyphosis at this level. The fracture involves the posterior cortex with approximately 4 mm retropulsion, resulting in mild narrowing of spinal canal. The fracture extends to the right pedicle, laminae and spinous process of T12, better visualized on the CT scan. There is abnormal signal in the anterior T11-12 disc suggesting injury. There is no obvious discontinuity of the anterior longitudinal ligament. There is focal discontinuity of the posterior longitudinal ligament at T12. There is mildly increased STIR signal intensity in the interspinous spaces at T11-T12 and T12-L1 levels representing edema with possible underlying soft tissue/ligamentous injury. There is posterior displacement of spinal cord at T12-L1 with partially imaged T2 hyperintensity/T1 hyperintensity anteriorly which is likely trace epidural hemorrhage. There is no spinal cord compression or cord edema. Remaining vertebral bodies are normal in height without significant marrow signal abnormality. Procedure Note Beth Dominguez MD - 08/12/2020 EXAMINATION: Magnetic resonance imaging (MRI) of the thoracic spine without contrast HISTORY: M54.6: Acute midline thoracic back pain TECHNIQUE: MRI of the cervical spine was performed without contrast according to standard protocol. COMPARISON: CT of the thoracic spine dated 08/11/2020 performed at an outside institution FINDINGS: There is acute compression fracture of the superior endplate of T12.There is approximately 30% vertebral body height loss anteriorly, resulting in focal kyphosis at this level. The fracture involves the posterior cortex with approximately 4 mm retropulsion, resulting in mild narrowing of spinal canal. The fracture extends to the right pedicle, laminae and spinous process of T12, better visualized on the CT scan. There is abnormal signal in the anterior T11-12 disc suggesting injury. There isno obvious discontinuity of the anterior longitudinal ligament. There is focal discontinuity of the posterior longitudinal ligament at T12. There is mildly increased STIR signal intensity in the interspinous spaces at T11-T12 and T12-L1 levels representing edema with possible underlyingsoft tissue/ligamentous injury. There is posterior displacement of spinal cord at T12-L1 with partially imaged T2 hyperintensity/T1 hyperintensity anteriorly which is likely trace epidural hemorrhage. There is no spinal cord compression or cord edema. Remaining vertebral bodies are normal in height without significantmarrow signal abnormality. IMPRESSION: 1.Acute compression fracture of T12 with approximately 30% height lossand approximately 4 mm retropulsion. Disruption of the posteriorlongitudinal ligament. Involvement of the posterior elements is better visualized on the recent CT scan. Mild edema of the interspinous soft tissues. 2.Trace epidural hemorrhage. 3.No cord compression or cord edema. Dictated by Eliot Vickers MD (vice president of communications). I, Dr. BETH DOMINGUEZ have personally reviewed and interpreted this examination/study. This report was electronically signed by BETH DOMINGUEZ on 08/12/2020 10:54AM . Mildred Floyd MD MR ORDERABLES * MAMMOGRAM DIGITAL SCREENING BILATERAL G0202 (02/25/2015 1:48 PM WAREHOUSE PRODUCTION WORKER) Only the most recent of2 resultswithin the time period is included. Anatomical Region Laterality Modality Breast Bilateral Mammography 02/26/2015 8:08 AM WAREHOUSE PRODUCTION WORKER Impressions 02/26/2015 8:10 AM WAREHOUSE PRODUCTION WORKER No mammographic evidence of malignancy. BI-RADS Category (1): Negative examination. RECOMMENDATION: Resume yearly mammography schedule or return sooner if clinically indicated. Narrative 02/26/2015 8:10 AM WAREHOUSE PRODUCTION WORKER BILATERAL DIGITAL SCREENING MAMMOGRAPHY HISTORY: Screening mammogram. No personal or family history of breast cancer. TECHNIQUE: Bilateral digital mammography was obtained in the craniocaudal and mediolateral oblique projections. 3-D tomosynthesis performed. Image interpretation was assisted with CAD analysis. COMPARISON: Mammography 01/15/2014 FINDINGS: Breast composition: Scattered fibroglandular densities Stable bilateral benign changes are present, with no suspicious interval change. No worrisome mass, suspicious microcalcifications, or other abnormality seen. Lisa Gramajo FOREIGN SERVICE OFFICER-DRUG ABUSE COUNSELOR MAMMO OR DERABLES * DEXA BONE DENSITY AXIAL SKELETON (01/15/2014 10:36 AM WAREHOUSE PRODUCTION WORKER) Anatomical Region Laterality Modality Mammography 01/15/2014 2:35 PM WAREHOUSE PRODUCTION WORKER Impressions 01/15/2014 2:36 PM WAREHOUSE PRODUCTION WORKER LUMBAR: Normal Range. FEMUR: Normal Range. Narrative 01/15/2014 2:36 PM WAREHOUSE PRODUCTION WORKER BONE MINERAL DENSITY STUDY: TECHNIQUE: Standard DEXA examination. Exam Location: [facility]: [employer] A ([place] 5.5.2) [facility]: [employer] SL QDR ([place] 3.4) [facility] [address]: [facility] INDICATION: Post menopausal woman COMPARISON: No available comparison [employer] DEFINITIONS OF STANDARD DEVIATIONS RELATIVE TO THE MEAN T- SCORE: MILD OSTEOPENIA = -1 to -1.5 MOD OSTEOPENIA = -1.5 to -2.0 SVR OSTEOPENIA = -2.0 to -2.5 OSTEOPOROSIS = -2.5 and more FINDINGS: LUMBAR: The bone mineral content of the lumbar spine, L1-L4, is 1.0 g/cm2. The T-score is 0.0 standard deviations relative to the mean for the adult T-score. FEMUR: The bone mineral content of the femoral neck is 0.7 g/cm2. The T-score is -0.6 standard deviations relative to the mean for the adult T-score. FRAX Calculation - 10 year Fracture Risks ([facility] Only): Frax Version 3.08: probability calculated for untreated patient. Major osteoporotic fracture, %: 7.2 Hip fracture, %: 0.4 Procedure Note Debbi Arita MD - 01/15/2014 BONE MINERAL DENSITY STUDY: TECHNIQUE: Standard DEXA examination. Exam Location: [facility]: [employer] A ([place] 5.5.2) [facility]: [employer] SL QDR ([place] 3.4) [facility] [address]: [employer] 2005 INDICATION: Post menopausal woman COMPARISON: No available comparison [employer] DEFINITIONS OF STANDARD DEVIATIONS RELATIVE TO THE MEAN T- SCORE: MILD OSTEOPENIA = -1 to -1.5 MOD OSTEOPENIA = -1.5 to -2.0 SVR OSTEOPENIA = -2.0 to -2.5 OSTEOPOROSIS = -2.5 and more FINDINGS: LUMBAR: The bone mineral content of the lumbar spine, L1-L4, is 1.0 g/cm2. The T-score is 0.0 standard deviations relative to the mean for the adult T-score. FEMUR: The bone mineral content of the femoral neck is 0.7 g/cm2. The T-score is -0.6 standard deviations relative to the mean for the adult T-score. FRAX Calculation - 10 year Fracture Risks ([facility] Only): Frax Version 3.08: probability calculated for untreated patient. Major osteoporotic fracture, %: 7.2 Hip fracture, %: 0.4 IMPRESSION LUMBAR: Normal Range. FEMUR: Normal Range. Lisa Gramajo FOREIGN SERVICE OFFICER-DRUG ABUSE COUNSELOR DEXA ORD ERABLES * MRI FOOT NON IV CONTRAST RIGHT (01/16/2013 9:30 AM WAREHOUSE PRODUCTION WORKER) Anatomical Region Laterality Modality Magnetic Resonan ce 01/16/2013 1:01 PM WAREHOUSE PRODUCTION WORKER Narrative 01/16/2013 1:05 PM WAREHOUSE PRODUCTION WORKER Examination: MRI right foot. Indication for examination: Right foot pain and limited range of motion. Noncontrast T1 and T2-weighted sagittal, axial and coronal images of the right foot are obtained. Skin markers were placed over the areas of clinical concern at the dorsal forefoot centrally and medially as directed by the patient. Examination of the bony structures reveals advanced degenerative arthritic change at the first metatarsophalangeal joint. There is prominent osteophyte formation at the proximal margin of the articulation between the medial and lateral sesamoid bone and the plantar margin of the head of the first metatarsal. This is associated with a small first MTP joint effusion. There is mild lateral subluxation of the tibial sesamoid at the first metatarsal head. No discrete tendon tear or tendon sheath fluid collection in this area. Remaining bony structures of the forefoot show normal marrow signal intensity. No other pathologic joint effusion. There is degenerative arthritic change at the second tarsometatarsal joint with subchondral cyst formation at the distal aspect of the middle cuneiform. Remaining bony structures of the midfoot appear intact. There is no mass lesion or fluid collection. There is no significant superficial or deep soft tissue edema. No other focal findings. Conclusion: Degenerative change first MTP joint as well as prominent degenerative spur formation at the articulations between the sesamoid bones at the plantar margin of the first metatarsal head. Small amount of joint fluid in this area. Relatively mild arthritic change second tarsometatarsal joint. No other significant focal findings. Procedure Note Shawn Leblanc MD - 01/16/2013 Examination: MRI right foot. Indication for examination: Right foot pain and limited range of motion. Noncontrast T1 and T2-weighted sagittal, axial and coronal images of the right foot are obtained. Skin markers were placed over the areas of clinical concern at the dorsal forefoot centrally and medially as directed by the patient. Examination of the bony structures reveals advanced degenerative arthritic change at the first metatarsophalangeal joint. There is prominent osteophyte formation at the proximal margin of the articulation between the medial and lateral sesamoid bone and the plantar margin of the head of the first metatarsal. This is associated with a small first MTP joint effusion. There is mild lateral subluxation of the tibial sesamoid at the first metatarsal head. No discrete tendon tear or tendon sheath fluid collection in this area. Remaining bony structures of the forefoot show normal marrow signal intensity. No other pathologic joint effusion. There is degenerative arthritic change at the second tarsometatarsal joint with subchondral cyst formation at the distal aspect of the middle cuneiform. Remaining bony structures of the midfoot appear intact. There is no mass lesion or fluid collection. There is no significant superficial or deep soft tissue edema. No other focal findings. Conclusion: Degenerative change first MTP joint as well as prominent degenerative spur formation at the articulations between the sesamoid bones at the plantar margin of the first metatarsal head. Small amount of joint fluid in this area. Relatively mild arthritic change second tarsometatarsal joint. No other significant focal findings. Casa Stokes DPM MR ORDERABLES * XR ANKLE 3+ VW LEFT (12/14/2010 10:03 PM CDT) Anatomical Region Laterality Modality Lower Extremity Radiographic Rosa Isela ging 12/14/2010 10:0 7 PM CDT Impressions 12/14/2010 10:07 PM CDT No radiographic evidence of displaced fracture or dislocation. Narrative 12/14/2010 10:07 PM CDT EXAMINATION: Left ankle, 3 views (AP, lateral, and mortise) CLINICAL INFORMATION: Left ankle injury and pain COMPARISON: None FINDINGS: There is no radiographic evidence of displaced fracture or dislocation. The ankle mortise is not widened. Articular surfaces appear intact. There is mild bimalleolar soft tissue swelling. No significant capsular distention. Procedure Note Justino Roth MD - 12/14/2010 EXAMINATION: Left ankle, 3 views (AP, lateral, and mortise) CLINICAL INFORMATION: Left ankle injury and pain COMPARISON: None FINDINGS: There is no radiographic evidence of displaced fracture or dislocation. The ankle mortise is not widened. Articular surfaces appear intact. There is mild bimalleolar soft tissue swelling. No significant capsular distention. IMPRESSION No radiographic evidence of displaced fracture or dislocation. Carlton Garcia MD DIAGNOSTIC IMAGING O [facility] Care Teams Infusion Rn Relationship Specialty Start Date End Date Den Arias MD PCP - General Internal Medicine 01/11/14
--- OUTSIDE RECORDS SUMMARY | 2024-05-08 10:50 | XMS_ITS | Encounter Summary ---
Author Organization [facility] Address [address] [place] [address] Care Team Providers Care Hand Inspector Name Role Phone Den Arias MD Primary Care Provider Encounter Details Date Type Department Care Team (Late st Contact Info) Description 11/03/2020 [facility] Outpatient Visit [facility] [address] [place] [address] Devin Murray MD [address] [facility] [place] [address] Social History Tobacco Use Types Packs/Day Years Used Date Smoking Tobacco: Never Smokeless Tobacco: Never Alcohol Use Standard Drinks/Week Comments Yes 0 [...] on file Sexual Orientation Not on file COVID-19 Exposure Response Date Recorded In the last month, have you been in contact with someone who was confirmed or suspected to have Coronavirus / COVID-19? No / Unsure 10/13/2020 2:46 PM CDT documented as of this encounter Functional Status Functional Status Response Date of Assess ment Is person deaf or have serious hearing difficult y? No 08/12/2020 Is person blind or have serious difficulty seein g? No 08/12/2020 Does person have serious dif ficulty walking/climbing stairs? Yes 08/12/2020 Does person have difficulty dressing/bathing? No 08/12/2020 Does person have difficulty doing errands alone? No 08/12/2020 Cognitive Status Response Date of Assessm ent Does person have difficulty concentrating/remembering/making decisions? No 08/12/2020 documented as of this encounter Plan of Treatment Not on file documented as of this encounter Visit Diagnoses Not on filedocumented in this encounter Care Teams Hand Inspector Relationship Specialty Start Date End Date Den Arias MD PCP - General Internal Medicine 01/11/14 documented as of this encounter
--- OUTSIDE RECORDS SUMMARY | 2024-05-08 10:50 | XMS_ITS | Referral Summary ---
Author Organization [facility] Care Team Providers Care Weatherstrip Machine Operator Name Role Phone Ervin Hernandez MD Primary Care Provider [phone] Allergies No known active allergies Medications lisinopril-hydr oCHLOROthiazide (ZESTORETIC) 20-25 mg per tablet Take 1 tablet by mouth daily 10/30/2022 Active CeleBREX 200 mg capsule Take 1 capsule (200 mg total) by mouth daily 10/18/2022 Active Active Problems Problem Noted Date Diagnosed Date Peripheral vascular disease 12/24/2022 Assessment & Plan (01/21/2023 2:19 PM LABEL PRESS OPERATOR): No evidence of peripheral vascular disease. I suspect her right lower extremity symptoms are neurogenic in nature or from lumbosacral spine disease. Can follow- up as needed. Assessment & Plan (12/24/2022 2:49 PM CDT): Impression: Patient denies any symptoms of claudication, ischemic rest pain or ulcerations to her lower extremity. Patient underwent a evaluation for life insurance and was found to have severe distal ischemia to bilateral lower extremity. Patient has palpable distal pulses to bilateral lower extremities. Patient does complain of neurogenic claudication to her left lower extremity with a history of spinal fracture and passed. Plan: Patient's left lower extremity discomfort is likely secondary to neurogenic claudication. We will have patient follow-up in 2 weeks for re-evaluation with a lower extremity arterial Doppler. History of spinal fracture 12/24/2022 Assessment & Plan (12/24/2022 2:47 PM CDT): Impression: Patient has a history of spinal fracture undergoing a vertebroplasty approximally 3 years ago. Patient complains of neurogenic claudication to her left lower extremity with positional changes. Patient also reports worsening radiating pain that occur from her low back down the back of her left lower extremity. Plan: Recommend patient to follow-up with primary care provider/pain management for further evaluation. Primary hypertension 12/24/2022 Assessment & Plan (01/21/2023 2:19 PM LABEL PRESS OPERATOR): Stable continue lisinopril hydrochlorothiazide. Assessment & Plan (12/24/2022 2:49 PM CDT): Impression: Chronic stable. Plan: Continue Zestoretic Osteoarthritis 04/17/2012 Social History Tobacco Use Types Packs/Day Years Used Date Smoking Tobacco: Never Smokeless Tobacco: Never Tobacco Cessation:Counseling Given: No Personal Safety Answer Date Recorded Getting School Help Needed Not on file 05/28 Comments Unknown Sex and Gender Information Value Date Recorded Sex Assigned at Not on file Legal Sex Female 3:24 PM CDT Gender Identity Not on file Sexual Orientation Not on file Last Filed Vital Signs Vital Sign Reading Time Taken Comments Blood Pressure - - Pulse - - Temperature - - Respiratory Rate - - Oxygen Saturation - - Inhaled Oxygen Concentration - - Weight 59.9 kg (132 lb) 01/19/2023 10:57 AM LABEL PRESS OPERATOR Height 154.9 cm (5' 1 ) 01/19/2023 10:57 AM LABEL PRESS OPERATOR Body Mass Index 24.94 01/19/2023 10:57 AM LABEL PRESS OPERATOR Plan of Treatment Not on file Insurance [employer] Care Teams Weatherstrip Machine Operator Relationship Specialty Start Date End Date Ervin Hernandez MD [facility] [address] [place] [address] [place] [id number] PCP - General Family Medicine 01/14/23
--- OUTSIDE RECORDS SUMMARY | 2024-05-08 10:50 | XMS_ITS | Clinical Summary ---
Author Organization [facility] Address [address] [place] [address] [place] [address] Care Team Providers Care Inspector Glass Or Mirror Name Role Phone Unavailable Primary Care Provider Unavailabl e Social History Tobacco Use Types Packs/Day Years Used Date Smoking Tobacco: Never Assessed Comments Unknown Sex and Gender Information Value Date Recorded Sex Assigned at Not on file Legal Sex Female 7:39 PM PSYCHOLOGISTS Gender Identity Not on file Sexual Orientation Not on file Plan of Treatment Health Maintenance Due Date Last Done Comments COLORECTAL SCREENING 1994 Colorectal Cancer Screening 1994 FIT-DNA Q 3 years 1994 FIT/FOBT Q 1 year 1994 Flex Sig/CT Colonography Q 5 years 1994 PNEUMOCOCCAL VACCINE 65+ YEA RS (1 of 1 - PCV) 1999 ZOSTER VACCINE (1 of 2) 1999 DTAP/TDAP/TD VACCINES (2 - Td or Tdap) 12/14/2020 INFLUENZA VACCINE (#1) 2023 11/30/2021, 2019 RSV VACCINE (60+ or ) (1 - 1-dose 75+ series) 01/26/2024 OSTEOPOROSIS SCREENING Completed 01/15/2014 Insurance [facility] [id number] [facility]
--- OUTSIDE RECORDS SUMMARY | 2024-05-08 10:50 | XMS_ITS | Clinical Summary ---
Author Organization [facility] [email or web address] Address [address] [place] [address] Care Team Providers Care Controls Project Engineer Name Role Phone Den Arias MD Primary Care Provider [phone] Source Comments [facility] [email or web address],non-owned Affiliates and Associated Physician Practices is amultiple site organization consisting of ambulatory clinics and hospital sitesin [place], [place], [place] and [place]. This disclosure is being madepursuant to the Care Everywhere program and may not contain all information available regarding this patient. Last updated 17.[facility] [email or web address] Allergies No known active allergies Medications * Be aware that medications may not be up to date on this document. Alwaysverify current medications with the patient. Medication Sig Dispensed Refills Start Date End Date Status lisinopril (PRINIVIL; ZESTRIL) 20 MG tabletIndications:H ypertension Take 20 mg by mouth once daily Reasons: High Blood Pressure Disorder Active celecoxib (CELEBREX) 200 MG capsule Take 200 mg by mouth once daily Active Multiple Vitamins-Minerals (ONE-A-DAY WOMENS 50+ ADVANTAGE PO) Active HYDROcodone-acetami nophen (NORCO) 5-325 MG tabletIndications:T horacic compression fracture, closed, initial encounter ([facility]) Take 1 (one) tablet by mouth every 6 hours as needed for Pain 20 tablet 09/01/2020 Active Additional Information Patient not taking.Reported on 10/13/2020 traMADol (ULTRAM) 50 MG tablet Take 50 mg by mouth every 6 hours as needed 09/12/2020 Active Cholecalciferol (VITAMIN D3) 1.25 MG (45877 UT) capsule Take 50,000 Units by mouth every 7 days Active methylPREDNISolone (MEDROL DOSEPAK) 4 MG tablet Take by mouth as directed Take as directed by mouth per package instructions. 21 tablet 11/03/2020 Active Additional Information Patient not taking.Reported on 11/13/2020 lidocaine (LMX 4) 4 % cream APPLY TO SKIN UP TO FOUR TIMES DAILY NEEDED TO REDUCE PAIN 15 g 11/03/2020 Active Active Problems Problem Noted Date Diagnosed Date Back pain of thoracolumbar region 11/03/2020 Closed fracture of twelfth thoracic vertebra 03/2020 Leg pain 12/14/2010 Thoracic compression fracture, closed, initial e ncounter Radicular pain of thoracic region Immunizations Name Administration Dates Next Due INFLUENZA VACCINE, QUADR. (F LUZONE; FLULAVAL; FLUARIX; AFLURIA QUADRIVALENT; 6MO+), 0.5 ML (IIV4) 01/13/2020 TDAP (7yrs+) 12/14/2010 Family History Medical History Relation Name Comments Cancer - Breast Neg Hx Social History Tobacco Use Types Packs/Day Years [...] Mass Index 27.02 11/03/2020 12:57 PM CDT Plan of Treatment Health Maintenance Due Date Last Done Comments COLOGUARD (AGES 45-75) - COLON CA SCREENING 1949 COLON MONITORING 1949 COLONOSCOPY - COLON CA SCREENING 1949 CT COLONOGRAPHY - COLON CA SCREENING 1949 Colorectal Cancer Screening 1949 FIT - COLON CA SCREENING 1949 FLEX SIG - COLON CA SCREENING 1949 LIPID TESTING 1949 HEPATITIS C SCREENING 01/21/1967 PNEUMOCOCCAL VACCINE 50+ (1 of 1 - PCV) 1999 ZOSTER VACCINE (1 of 2) 1999 MAMMOGRAM 02/25/2017 02/25/2015, 01/15/2014 DTAP/TDAP/TD VACCINES (2 - Td or Tdap) 12/14/2020 12/14/2010 COVID-19 VACCINE (1 - 2023- season) 2023 11/30/2021 INFLUENZA VACCINE (#1) 2023 2, 12/16/2020, 01/13/2020, Additional history exists Respiratory Syncytial Virus (RSV) Vaccine Pt: or over 60 yrs (1 - 1-dose 75+ series) 01/26/2024 DEPRESSION SCREENING 03/14/2024 MEDICARE AWV CALENDAR YEAR 2024 BONE DENSITY TESTING Completed 01/15/2014 HEPATITIS B VACCINE Aged Out No longe r eligible based on patient's age to complete this topic HIB VACCINE Aged Out No longer eligi ble based on patient's age to complete this topic HPV VACCINE Aged Out No longer eligi ble based on patient's age to complete this topic MENINGOCOCCAL (Group B) VACCINE Aged Out No longer eligible based on patient's age to complete this topic MENINGOCOCCAL VACCINE Aged Out No randy cathy eligible based on patient's age to complete this topic Medical Devices Implanted Type Area Disability Counselor Device Identifier Shelf Expiration Date Model / Serial / Lot Cmnt Bone Kyphon Xpede Spnl Mxr Implanted:Qty: 1 on 08/14/2020 by Rich Paul MD at [facility] N/A: [employer] 05/11/2028 [id number] / / [id number] Description:bone cement Procedures Procedure Name Priority Date/Time Associated Diagnosis Comments MAMMO BILAT SCREENING Routine 02/25/2015 1:48 PM FORM STRIPPER Visit for screening mammogram DEXA BONE DENSITY AXIAL SKELETON Routine 01/15/2014 10:36 AM FORM STRIPPER Screening for osteoporosis from Last 3 Months or Most Recently Relevant to Health Maintenance Results * MAMMOGRAM DIGITAL SCREENING BILATERAL G0202 (02/25/2015 1:48 PM FORM STRIPPER) Anatomical Region Laterality Modality Breast Bilateral Mammography 02/26/2015 8:08 AM FORM STRIPPER Impressions 02/26/2015 8:10 AM FORM STRIPPER No mammographic evidence of malignancy. BI-RADS Category (1): Negative examination. RECOMMENDATION: Resume yearly mammography schedule or return sooner if clinically indicated. Narrative 02/26/2015 8:10 AM FORM STRIPPER BILATERAL DIGITAL SCREENING MAMMOGRAPHY HISTORY: Screening mammogram. [...] microcalcifications, or other abnormality seen. Lisa Gramajo TEST ENGINE EVALUATOR-BELLOWS CHARGER ASSEMBLER MAMMO OR DERABLES * DEXA BONE DENSITY AXIAL SKELETON (01/15/2014 10:36 AM FORM STRIPPER) Anatomical Region Laterality Modality Mammography 01/15/2014 2:35 PM FORM STRIPPER Impressions 01/15/2014 2:36 PM FORM STRIPPER LUMBAR: Normal Range. FEMUR: Normal Range. Narrative 01/15/2014 2:36 PM FORM STRIPPER BONE MINERAL DENSITY STUDY: TECHNIQUE: Standard DEXA examination. Exam Location: [facility]: [employer] Horizon A (Merkel 5.5.2) [facility]: [employer] SL QDR (Merkel 3.4) [facility] [address]: [employer] 2005 INDICATION: Post menopausal woman COMPARISON: No [...] FRAX Calculation - 10 year Fracture Risks ([facility] Only): Frax Version 3.08: probability calculated for untreated patient. Major osteoporotic fracture, %: 7.2 Hip fracture, %: 0.4 Procedure Note Debbi Arita MD - 01/15/2014 BONE MINERAL DENSITY STUDY: TECHNIQUE: Standard DEXA examination. Exam Location: [facility]: [employer] Horizon A (Merkel 5.5.2) [facility]: [employer] SL QDR (Merkel 3.4) [facility] [address]: [employer] 2005 INDICATION: Post menopausal woman COMPARISON: No [...] FRAX Calculation - 10 year Fracture Risks ([facility] Only): Frax Version 3.08: probability calculated for untreated patient. Major osteoporotic fracture, %: 7.2 Hip fracture, %: 0.4 IMPRESSION LUMBAR: Normal Range. FEMUR: Normal Range. Lisa Gramajo TEST ENGINE EVALUATOR-SARAN DEXA ORD ERABLES from Last 3 Months or Most Recently Relevant to Health Maintenance Advance Directives * Full Code (Latest Code Status on File) Date Activated Date Inactivated Comments 08/12/2020 10:49 PM 08/14/2020 5:55 PM Care Teams Controls Project Engineer Relationship Specialty Start Date End Date Den Arias MD PCP - General Internal Medicine 01/11/14
--- OUTSIDE RECORDS SUMMARY | 2024-05-08 10:50 | XMS_ITS | Referral Summary ---
Author Organization [facility] Address [address] [place] [address] Care Team Providers Care Laboratory Worker Name Role Phone Den Arias MD Primary Care Provider [phone] Source Comments [facility],non-owned Affiliates and Associated Physician Practices is amultiple site organization consisting of ambulatory clinics and hospital sitesin [place], [place], [place] and [place]. This disclosure is being madepursuant to the Care Everywhere program and may not contain all information available regarding this patient. Last updated 17.[facility] Allergies No known active allergies Medications * [...] tabletIndications:T horacic compression fracture, closed, initial encounter ([facility]) Take 1 (one) tablet by mouth every 6 hours as needed for Pain 20 tablet 09/01/2020 Active Additional Information Patient not taking.Reported on 10/13/2020 traMADol (ULTRAM) 50 MG tablet Take 50 mg by mouth every 6 hours as needed 09/12/2020 Active Cholecalciferol (VITAMIN D3) 1.25 MG (86799 UT) capsule Take 50,000 Units by mouth [...] 0.5 ML (IIV4) 01/13/2020 TDAP (7yrs+) 12/14/2010 Social History Tobacco Use Types Packs/Day Years [...] Mass Index 27.02 11/03/2020 12:57 PM CDT Functional Status Functional Status Response Date of [...] person have difficulty concentrating/remembering/making decisions? No 08/12/2020 Plan of Treatment Not on file Medical Devices Implanted Type Area Shoe Reconditioner Device Identifier Shelf Expiration Date Model / Serial / Lot Cmnt Bone Kyphon Xpede Spnl Mxr Implanted:Qty: 1 on 08/14/2020 by Rich Paul MD at [facility] N/A: [employer] 05/11/2028 [id number] / / [id number] Description:bone cement Procedures Procedure Name Priority Date/Time Associated Diagnosis Comments MAMMO BILAT SCREENING Routine 02/25/2015 1:48 PM CHECK OUT CASHIER Visit for screening mammogram DEXA BONE DENSITY AXIAL SKELETON Routine 01/15/2014 10:36 AM CHECK OUT CASHIER Screening for osteoporosis from Last 3 Months or Most Recently Relevant to Health Maintenance Results * MAMMOGRAM DIGITAL SCREENING BILATERAL G0202 (02/25/2015 1:48 PM CHECK OUT CASHIER) Anatomical Region Laterality Modality Breast Bilateral Mammography 02/26/2015 8:08 AM CHECK OUT CASHIER Impressions 02/26/2015 8:10 AM CHECK OUT CASHIER No mammographic evidence of malignancy. BI-RADS Category (1): Negative examination. RECOMMENDATION: Resume yearly mammography schedule or return sooner if clinically indicated. Narrative 02/26/2015 8:10 AM CHECK OUT CASHIER BILATERAL DIGITAL SCREENING MAMMOGRAPHY HISTORY: Screening mammogram. [...] suspicious microcalcifications, or other abnormality seen. Lisa Tyler Avila FRONT DESK CLERK-SUPERVISOR MOLD CONSTRUCTION MAMMO OR DERABLES * DEXA BONE DENSITY AXIAL SKELETON (01/15/2014 10:36 AM CHECK OUT CASHIER) Anatomical Region Laterality Modality Mammography 01/15/2014 2:35 PM CHECK OUT CASHIER Impressions 01/15/2014 2:36 PM CHECK OUT CASHIER LUMBAR: Normal Range. FEMUR: Normal Range. Narrative 01/15/2014 2:36 PM CHECK OUT CASHIER BONE MINERAL DENSITY STUDY: TECHNIQUE: Standard DEXA examination. Exam Location: [facility]: [employer] A (Belden 5.5.2) [facility]: [employer] QDR ([place] 3.4) [facility] [address]: [employer] 2005 INDICATION: Post menopausal woman COMPARISON: No [...] FRAX Calculation - 10 year Fracture Risks ([facility] Only): Frax Version 3.08: probability calculated for untreated patient. Major osteoporotic fracture, %: 7.2 Hip fracture, %: 0.4 Procedure Note Debbi Arita MD - 01/15/2014 BONE MINERAL DENSITY STUDY: TECHNIQUE: Standard DEXA examination. Exam Location: [facility]: [employer] Horizon A (Belden 5.5.2) [facility]: [employer] Discovery SL QDR (Belden 3.4) [facility]: [employer] 2005 INDICATION: Post menopausal woman COMPARISON: No [...] FRAX Calculation - 10 year Fracture Risks ([facility] Only): Frax Version 3.08: probability calculated for untreated patient. Major osteoporotic fracture, %: 7.2 Hip fracture, %: 0.4 IMPRESSION LUMBAR: Normal Range. FEMUR: Normal Range. Lisa Gramajo FRONT DESK CLERK-SUPERVISOR MOLD CONSTRUCTION DEXA ORD ERABLES from Last 3 Months or Most Recently Relevant to Health Maintenance Advance Directives * Full Code (Latest Code Status on File) Date Activated Date Inactivated Comments 08/12/2020 10:49 PM 08/14/2020 5:55 PM Care Teams Laboratory Worker Relationship Specialty Start Date End Date Den Arias MD PCP - General Internal Medicine 01/11/14
--- OUTSIDE RECORDS SUMMARY | 2024-05-08 10:50 | XMS_ITS | Clinical Summary ---
Author Organization [facility] Care Team Providers Care Tracer Bullet Section Supervisor Name Role Phone Ervin Hernandez MD Primary Care Provider [phone] Allergies No known active allergies Medications lisinopril-hydr oCHLOROthiazide (ZESTORETIC) 20-25 mg per tablet Take 1 tablet by mouth daily 10/30/2022 Active CeleBREX 200 mg capsule Take 1 capsule (200 mg total) by mouth daily 10/18/2022 Active Active Problems Problem Noted Date Diagnosed Date Peripheral vascular disease 12/24/2022 Assessment & Plan (01/21/2023 2:19 PM SAILOR): No evidence of peripheral vascular disease. I [...] 12/24/2022 Assessment & Plan (01/21/2023 2:19 PM SAILOR): Stable continue lisinopril hydrochlorothiazide. Assessment & Plan (12/24/2022 2:49 PM CDT): Impression: Chronic stable. Plan: Continue Zestoretic Osteoarthritis 04/17/2012 Medical History Medical History Date Comments Spinal fracture of T10 vertebra (CMS/HCC) ([facility]) 2019 Social History Tobacco Use Types Packs/Day Years Used Date Smoking Tobacco: Never Smokeless Tobacco: Never Tobacco Cessation:Counseling Given: No Personal Safety Answer Date Recorded Getting School Help Needed Not on file 05/28 Comments Unknown Sex and Gender Information Value Date Recorded Sex Assigned at Not on file Legal Sex Female 3:24 PM CDT Gender Identity Not on file Sexual Orientation Not on file Obstetrics History Last Filed Vital Signs Vital Sign Reading Time Taken Comments Blood Pressure - - Pulse - - Temperature - - Respiratory Rate - - Oxygen Saturation - - Inhaled Oxygen Concentration - - Weight 59.9 kg (132 lb) 01/19/2023 10:57 AM SAILOR Height 154.9 cm (5' 1 ) 01/19/2023 10:57 AM SAILOR Body Mass Index 24.94 01/19/2023 10:57 AM SAILOR Plan of Treatment Health Maintenance Due Date Last Done Comments Colon Cancer Screening-Colonoscopy 1950 Depression Screening 1949 Fall Risk Assessment 1950 Hepatitis C Screening 1949 Osteoporosis Screening-Bone Density Scan 1949 DTaP/Tdap/Td Vaccine (1 - Tdap) 01/26/1960 Hepatitis B Screening 1967 Zoster Vaccine (1 of 2) 1999 Well Visit 65+ 2014 Covid-19 Vaccine (5 - 2023-2 5 season) 2023 11/30/2021, 01/08/2021, 05/02/2020, Additional history exists Influenza Vaccine (#1) 2023 2, 11/30/2021, 12/16/2020, Additional history exists Pneumococcal vaccine 65+ Completed 02/02/2019, 12/13 Insurance [employer] MEDICARE GOLD Care Teams Tracer Bullet Section Supervisor Relationship Specialty Start Date End Date Ervin Hernandez MD [address] [place] [facility] [id number] PCP - General Family Medicine 01/14/23
--- OUTSIDE RECORDS SUMMARY | 2024-05-08 10:50 | XMS_ITS | Encounter Summary ---
Author Organization [facility] Health Address [address] [place] [address] Care Team Providers Care Dry Cure Worker Name Role Phone Den Arias MD Primary Care Provider [phone] Encounter Details Date Type Department Care Team (Late st Contact Info) Description 11/03/2020 [facility] Outpatient Visit [facility] [address] [place] [address] Mayra Bass, PARTS CASTING MACHINE OPERATOR-TRANSCRIPTION SPECIALIST [address] [place] [place] [address] Social History Tobacco Use Types Packs/Day Years [...] on filedocumented in this encounter Care Teams Dry Cure Worker Relationship Specialty Start Date End Date Den Arias MD PCP - General Internal Medicine 01/11/14 documented as of this encounter
[2024-05-08 10:58] LABS: Albumin Level 3.7 g/dL (3.5-5.1); Anion Gap 7 mmol/L (4-12); Blood Urea Nitrogen 14 mg/dL (7-17); Calcium 8.8 mg/dL (8.4-10.2); Carbon Dioxide 29 mmol/L (22-30); Chloride 104 mmol/L (98-107); Estimated Glomerular Filt Rate 43; Glucose 88 mg/dL (65-110); Phosphorus 4.2 mg/dL (2.5-4.5); Potassium 4.3 mmol/L (3.4-5.0); Sodium 140 mmol/L (137-145)
[2024-05-08 11:10] LABS: Parathyroid Intact 48.6 pg/mL (14.5-75.2)
[2024-05-08 11:31] LABS: Vitamin D 25 Hydroxy 42.5 ng/mL
== END 2024-05-08 09:42 | disposition home or self-care (01) ==
PROVIDERS: PCP Nurse Practitioner Family; Visit Provider Internal Medicine Nephrology
DX: I12.9 Hypertensive chronic kidney disease with stage 1 through stage 4 chronic kidney disease, or unspecified chronic kidney disease (principal); N18.32 Chronic kidney disease, stage 3b; N25.81 Secondary hyperparathyroidism of renal origin; E55.9 Vitamin D deficiency, unspecified
CPT/HCPCS: 36415; 80069; 82306; 83970

== ENCOUNTER 2024-05-08 16:23 | Outpatient (CLI) | payer MEDICARE, SELFPAY ==
[2024-05-08 17:27] LABS: Creatinine Urine 104.4 mg/dL; Total Protein Urine Random 7 mg/dL; Ur Ttl Prot Creatinine Ratio 0.07 mg/mg (0-0.20)
--- OUTSIDE RECORDS SUMMARY | 2024-05-08 18:37 | XMS_ITS | Clinical Summary ---
Author Organization [facility] [employer] Address [address] [place] [address] Care Team Providers Care Photo Specialist Name Role Phone Den Arias MD Primary Care Provider [phone] Source Comments [facility] [employer],non-owned Affiliates and Associated Physician Practices is amultiple site organization consisting of ambulatory clinics and hospital sitesin [place], [place], [place] and [place]. This disclosure is being madepursuant to the Care Everywhere program and may not contain all information available regarding this patient. Last updated 17.[facility] [employer] Allergies No known active allergies Medications * [...] horacic compression fracture, closed, initial encounter ([facility]) Take 1 (one) tablet by mouth every 6 hours as needed for Pain 20 tablet 09/01/2020 Active Additional Information Patient not taking.Reported on 10/13/2020 traMADol (ULTRAM) 50 MG tablet Take 50 mg by mouth every 6 hours as needed 09/12/2020 Active Cholecalciferol (VITAMIN D3) 1.25 MG (62294 UT) capsule Take 50,000 Units by mouth [...] this topic Medical Devices Implanted Type Area Test Tube Maker Device Identifier Shelf Expiration Date Model / Serial / Lot Cmnt Bone Kyphon Xpede Spnl Mxr Implanted:Qty: 1 on 08/14/2020 by Rich Paul MD at [facility] N/A: [employer] 05/11/2028 [id number] / / [id number] Description:bone cement Procedures Procedure Name Priority Date/Time Associated Diagnosis Comments MAMMO BILAT SCREENING Routine 02/25/2015 1:48 PM METAL SASH SETTER Visit for screening mammogram DEXA BONE DENSITY AXIAL SKELETON Routine 01/15/2014 10:36 AM METAL SASH SETTER Screening for osteoporosis from Last 3 Months or Most Recently Relevant to Health Maintenance Results * MAMMOGRAM DIGITAL SCREENING BILATERAL G0202 (02/25/2015 1:48 PM METAL SASH SETTER) Anatomical Region Laterality Modality Breast Bilateral Mammography 02/26/2015 8:08 AM METAL SASH SETTER Impressions 02/26/2015 8:10 AM METAL SASH SETTER No mammographic evidence of malignancy. BI-RADS Category (1): Negative examination. RECOMMENDATION: Resume yearly mammography schedule or return sooner if clinically indicated. Narrative 02/26/2015 8:10 AM METAL SASH SETTER BILATERAL DIGITAL SCREENING MAMMOGRAPHY HISTORY: Screening mammogram. [...] microcalcifications, or other abnormality seen. Lisa Gramajo PRIVATE ADVISOR-STEEL LOADER MAMMO OR DERABLES * DEXA BONE DENSITY AXIAL SKELETON (01/15/2014 10:36 AM METAL SASH SETTER) Anatomical Region Laterality Modality Mammography 01/15/2014 2:35 PM METAL SASH SETTER Impressions 01/15/2014 2:36 PM METAL SASH SETTER LUMBAR: Normal Range. FEMUR: Normal Range. Narrative 01/15/2014 2:36 PM METAL SASH SETTER BONE MINERAL DENSITY STUDY: TECHNIQUE: Standard DEXA examination. Exam Location: [facility]: [employer] Horizon A (Arnold 5.5.2) [facility]: [employer] SL QDR (Arnold 3.4) [facility] [address]: [employer] 2005 INDICATION: Post menopausal woman COMPARISON: No [...] FRAX Calculation - 10 year Fracture Risks ([facility] Only): Frax Version 3.08: probability calculated for untreated patient. Major osteoporotic fracture, %: 7.2 Hip fracture, %: 0.4 Procedure Note Debbi Arita MD - 01/15/2014 BONE MINERAL DENSITY STUDY: TECHNIQUE: Standard DEXA examination. Exam Location: [facility]: [employer] Horizon A (Arnold 5.5.2) [facility]: [employer] SL QDR (Arnold 3.4) [facility] [address]: [employer] 2005 INDICATION: Post menopausal woman COMPARISON: No [...] FRAX Calculation - 10 year Fracture Risks ([facility] Only): Frax Version 3.08: probability calculated for untreated patient. Major osteoporotic fracture, %: 7.2 Hip fracture, %: 0.4 IMPRESSION LUMBAR: Normal Range. FEMUR: Normal Range. Lisa Gramajo PRIVATE ADVISOR-SARAN DEXA ORD ERABLES from Last 3 Months or Most Recently Relevant to Health Maintenance Advance Directives * Full Code (Latest Code Status on File) Date Activated Date Inactivated Comments 08/12/2020 10:49 PM 08/14/2020 5:55 PM Care Teams Photo Specialist Relationship Specialty Start Date End Date Den Arias MD PCP - General Internal Medicine 01/11/14
--- OUTSIDE RECORDS SUMMARY | 2024-05-08 18:37 | XMS_ITS | Referral Summary ---
Author Organization [facility]Care Care Team Providers Care Game Designer/Creative Director Name Role Phone Ervin Hernandez MD Primary Care Provider [phone] Allergies No known active allergies Medications lisinopril-hydr oCHLOROthiazide (ZESTORETIC) 20-25 mg per tablet Take 1 tablet by mouth daily 10/30/2022 Active CeleBREX 200 mg capsule Take 1 capsule (200 mg total) by mouth daily 10/18/2022 Active Active Problems Problem Noted Date Diagnosed Date Peripheral vascular disease 12/24/2022 Assessment & Plan (01/21/2023 2:19 PM CRIPPLE CUTTER): No evidence of peripheral vascular disease. I [...] 12/24/2022 Assessment & Plan (01/21/2023 2:19 PM CRIPPLE CUTTER): Stable continue lisinopril hydrochlorothiazide. Assessment & Plan [...] 59.9 kg (132 lb) 01/19/2023 10:57 AM CRIPPLE CUTTER Height 154.9 cm (5' 1 ) 01/19/2023 10:57 AM CRIPPLE CUTTER Body Mass Index 24.94 01/19/2023 10:57 AM CRIPPLE CUTTER Plan of Treatment Not on file Insurance [facility] Care Teams Game Designer/Creative Director Relationship Specialty Start Date End Date Ervin Hernandez MD [facility] [place] [address] [place] [id number] PCP - General Family Medicine 01/14/23
--- OUTSIDE RECORDS SUMMARY | 2024-05-08 18:37 | XMS_ITS | Clinical Summary ---
Author Organization [facility] Address [address] [place] [address] [place] [address] Care Team Providers Care Fiscal Agent Name Role Phone Unavailable Primary Care Provider Unavailabl e Social History Tobacco Use Types Packs/Day Years Used Date Smoking Tobacco: Never Assessed Comments Unknown Sex and Gender Information Value Date Recorded Sex Assigned at Not on file Legal Sex Female 7:39 PM FUNCTIONAL ANALYST Gender Identity Not on file Sexual Orientation [...] series) 01/26/2024 OSTEOPOROSIS SCREENING Completed 01/15/2014 Insurance [facility] [id number] [facility]
--- OUTSIDE RECORDS SUMMARY | 2024-05-08 18:37 | XMS_ITS | Referral Summary ---
Author Organization [facility] Address [address] [place] [address] Care Team Providers Care Technical Manager Name Role Phone Den Arias MD Primary Care Provider [phone] Source Comments [facility],non-owned Affiliates and Associated Physician Practices is amultiple site organization consisting of ambulatory clinics and hospital sitesin [place], [place], [place] and [place]. This disclosure is being madepursuant to the Care Everywhere program and may not contain all information available regarding this patient. Last updated 17.[facility] Allergies No known active allergies Medications * [...] tabletIndications:T horacic compression fracture, closed, initial encounter ([facility]) Take 1 (one) tablet by mouth every 6 hours as needed for Pain 20 tablet 09/01/2020 Active Additional Information Patient not taking.Reported on 10/13/2020 traMADol (ULTRAM) 50 MG tablet Take 50 mg by mouth every 6 hours as needed 09/12/2020 Active Cholecalciferol (VITAMIN D3) 1.25 MG (52449 UT) capsule Take 50,000 Units by mouth [...] on file Medical Devices Implanted Type Area Delivery Rn Device Identifier Shelf Expiration Date Model / Serial / Lot Cmnt Bone Kyphon Xpede Spnl Mxr Implanted:Qty: 1 on 08/14/2020 by Rich Paul MD at [facility] N/A: [employer] 05/11/2028 [id number] / / [id number] Description:bone cement Procedures Procedure Name Priority Date/Time Associated Diagnosis Comments MAMMO BILAT SCREENING Routine 02/25/2015 1:48 PM AIRCRAFT PILOT Visit for screening mammogram DEXA BONE DENSITY AXIAL SKELETON Routine 01/15/2014 10:36 AM AIRCRAFT PILOT Screening for osteoporosis from Last 3 Months or Most Recently Relevant to Health Maintenance Results * MAMMOGRAM DIGITAL SCREENING BILATERAL G0202 (02/25/2015 1:48 PM AIRCRAFT PILOT) Anatomical Region Laterality Modality Breast Bilateral Mammography 02/26/2015 8:08 AM AIRCRAFT PILOT Impressions 02/26/2015 8:10 AM AIRCRAFT PILOT No mammographic evidence of malignancy. BI-RADS Category (1): Negative examination. RECOMMENDATION: Resume yearly mammography schedule or return sooner if clinically indicated. Narrative 02/26/2015 8:10 AM AIRCRAFT PILOT BILATERAL DIGITAL SCREENING MAMMOGRAPHY HISTORY: Screening mammogram. [...] or other abnormality seen. Lisa Tyler Avila LEATHER SEASONER-WRITER EDITOR MAMMO OR DERABLES * DEXA BONE DENSITY AXIAL SKELETON (01/15/2014 10:36 AM AIRCRAFT PILOT) Anatomical Region Laterality Modality Mammography 01/15/2014 2:35 PM AIRCRAFT PILOT Impressions 01/15/2014 2:36 PM AIRCRAFT PILOT LUMBAR: Normal Range. FEMUR: Normal Range. Narrative 01/15/2014 2:36 PM AIRCRAFT PILOT BONE MINERAL DENSITY STUDY: TECHNIQUE: Standard DEXA examination. Exam Location: [facility]: [email or web address] A ([place] 5.5.2) [facility]: [employer] QDR ([place] 3.4) [facility] [address]: [employer] 2005 INDICATION: Post menopausal woman COMPARISON: No [...] FRAX Calculation - 10 year Fracture Risks ([facility] Only): Frax Version 3.08: probability calculated for untreated patient. Major osteoporotic fracture, %: 7.2 Hip fracture, %: 0.4 Procedure Note Debbi Arita MD - 01/15/2014 BONE MINERAL DENSITY STUDY: TECHNIQUE: Standard DEXA examination. Exam Location: [facility]: [employer] Horizon A ([place] 5.5.2) [facility]: [employer] Discovery SL QDR ([place] 3.4) [facility]: [employer] 2005 INDICATION: Post menopausal woman [...] FRAX Calculation - 10 year Fracture Risks ([facility] Only): Frax Version 3.08: probability calculated for untreated patient. Major osteoporotic fracture, %: 7.2 Hip fracture, %: 0.4 IMPRESSION LUMBAR: Normal Range. FEMUR: Normal Range. Lisa Gramajo LEATHER SEASONER-WRITER EDITOR DEXA ORD ERABLES from Last 3 Months or Most Recently Relevant to Health Maintenance Advance Directives * Full Code (Latest Code Status on File) Date Activated Date Inactivated Comments 08/12/2020 10:49 PM 08/14/2020 5:55 PM Care Teams Technical Manager Relationship Specialty Start Date End Date Den Arias MD PCP - General Internal Medicine 01/11/14
--- OUTSIDE RECORDS SUMMARY | 2024-05-08 18:37 | XMS_ITS | Patient Health Summary ---
Author Organization [facility] Address [address] [place] [address] Care Team Providers Care Glass Products Inspector Name Role Phone Den Arias MD Primary Care Provider [phone] Note from [facility],non-owned Affiliates and Associated Physician Practices is amultiple site organization consisting of ambulatory clinics and hospital sitesin [place], [place], [place]. This disclosure is being madepursuant to the Care Everywhere program and may not contain all information available regarding this patient. Last updated 17.[facility] Allergies No known active allergies Medications * [...] needed * Cholecalciferol (VITAMIN D3) 1.25 MG (70204 UT) capsule Take 50,000 Units by mouth [...] PM CDT Medical Devices Implanted Type Area Assayer Helper Device Identifier Shelf Expiration Date Model / Serial / Lot Cmnt Bone Kyphon Xpede Spnl Mxr Implanted:Qty: 1 on 08/14/2020 by Rich Paul MD at [facility] N/A: Thoracic [employer] 05/11/2028 [id number] / / [id number] Description:bone cement Procedures * VAS ARTERIAL ANKLE ARM INDEX(Performed 10/27/2022) Performed for PVD (peripheral vascular disease) ([facility]) * PAIN MANAGEMENT PROCEDURE TIME(Performed 11/13/2020) Performed for Radicular pain of thoracic region * CBC W AUTO DIFFERENTIAL W/O PLATELETS(Performed 11/03/2020) * PT-INR(Performed 11/03/2020) Performed for Abnormal bruising, Herpes zoster without complication * PTT(Performed 11/03/2020) Performed for Abnormal bruising, Herpes zoster without complication * XR THORACIC SPINE 2VW(Performed 10/13/2020) Performed for Thoracic compression fracture, closed, initial encounter ([facility]) * PT EVAL AND TREAT(Performed 08/14/2020) * OT EVAL AND TREAT(Performed 08/14/2020) * CT THORACIC SPINE WO CONTRAST(Performed 08/14/2020) Performed for Closed wedge compression fracture of T12 vertebra, initial encounter ([facility]) * FL ANA SURGERY(Performed 08/14/2020) Performed for [...] for Thoracic compression fracture, closed, initial encounter ([facility]) * MRI THORACIC SPINE WO CONTRAST(Performed 08/12/2020) [...] Note Jabari Ching Sr., MD - 10/27/2022 [facility] [address] [place] [address] Lower Extremity Arterial Doppler Report Pat.Name: CATHI ANNIA Marino Pat.ID: [id number] .Date: 10/27/2022 Exam Time: 11:10:00 AM Study Type:DELMIS/PVR Age: 11 1950,72Y Sex: FEMALE Sonogrphr: [address] RVT, [facility] Pat. Stat.:Outpatient CPT - 4: 05522 Reason for Study: Pain of right leg and hip (not induced by exercise). PVD History / Clinical: Hypertension, Smoking - quit >6mo. Procedures: Ankle Arm Index Visit ID: [id number] ++++++++++++++++++++++++++++++++++++ SUMMARY: ++++++++++++++++++++++++++++++++++++ No evidence for significant [...] on how to reach the clinic or control specialist physician at anytime for questions or complaints. [...] Agency Comment Lab Testing performed at: [facility] [address] [phone] Devin Murray MD LAB - COAGULATION OR DERABLES [facility] INSURANCE BILL [address] [place] [address] * (ABNORMAL) CBC W AUTO DIFFERENTIAL W/O [...] Resulting Agency Comment Lab Testing performed at: [address] [phone] Devin Murray MD LAB - HEMATOLOGY ORD ERABLES Performing Organization Address [facility] Co de Phone Number [facility] INSURANCE BILL [address] [place] [address] * (ABNORMAL) PTT (11/03/2020 2:24 PM CDT) PTT 23(L) 24 - 33 sec [facility] INSURANCE BILL Comment: This test has not been validated for monitoring unfractionated heparin therapy. aPTT-based therapeutic ranges for unfractionated heparin therapy have not been established. For general guidelines on Heparin monitoring, refer to the [facility] Directory of Services. FASTING Blood BLOOD SPECIMEN / Unknown 11/03/2020 2:24 PM CDT 11/03/2020 Narrative Resulting Agency Comment Lab Testing performed at: [facility] [id number] Devin Murray MD LAB - COAGULATION OR DERABLES Performing Organization Address [facility] de Phone Number [facility] INSURANCE BILL [address] [place] [address] * XR THORACIC SPINE 2VW (10/13/2020 3:10 [...] on 10/13/2020 at 4:09 PM Barbara Zepeda FRANCHISE SPECIALIST-GLORY HOLE TENDER DIAGNOSTIC IMAGING O RDERABLES * CT THORACIC SPINE WO CONTRAST (08/14/2020 8:32 AM CDT) Anatomical Region Laterality Modality Spine Computed Tomogra phy 08/14/2020 12:4 8 PM CDT Impressions 08/14/2020 1:29 PM CDT IMPRESSION: 1.Postoperative changes of kyphoplasty for a T12 superior endplate compression fracture, with catholic of some of the anterior height loss and decreased kyphosis at this level. 2.There is unchanged retropulsion of about 4 mm with mild central canal stenosis at T12. 3.There is unchanged nondisplaced horizontal fracture of T12 spinous process. Dictated by Reena Tarango MD (associate professor of radiology). This report was approved by Reena Tarango [...] of kyphoplasty for the T12 fracture with catholic of some of the anterior height loss [...] changes of kyphoplasty for theT12 fracture with catholic of some of the anterior height loss [...] mild bilateral facet osteoarthritis at T8-T9, T9-T10 [id number]. No neural foraminal stenosis is seen. There is subsegmental atelectasisin the dependent portions of the lung bases. IMPRESSION: 1.Postoperative changes of kyphoplasty for a T12 superior endplate compression fracture, with catholic of some of the anterior heightloss and decreased kyphosis at this level. 2.There is unchanged retropulsion of about 4 mm with mild central canal stenosis at T12. 3.There is unchanged nondisplaced horizontal fracture of T12 spinous process. Dictated by Reena Tarango MD (associate professor of radiology). This report was approved by Reena Tarango on 08/14/2020 1:29 PM . I, Dr. ESEQUIEL NJ have personally reviewed and interpreted this examination/study. This report was electronically signed by ESEQUIEL NJ on08/14/2020 1:29 PM . Rich Paul MD CT ORDERABLES * FL ANA SURGERY (08/14/2020 6:00 AM CDT) Narrative [facility] - 08/14/2020 6:38 AM CDT Fluoroscopy was used for this exam in the OR. Please see the Operative report. Rich Paul MD FLUOROSCOPY ORDE [facility] * ETT LINE PERFORMABLE (08/14/2020 5:30 AM CDT) Narrative Kristin Mcwilliams MD - 08/14/2020 5:30 AM CDT Kristin Mcwilliams MD 08/14/2020 5:30 AM Endotracheal Tube Placement: Patient Location: OR. Intubation Event Date/Time: 08/14/2020 4:51 AM Procedure: intubation (26915). Procedure Section: Sedation: under general anesthesia. Indications [...] - 10.5 10 3/uL 08/14/2020 3:36 AM [facility] RBC 4.08 3.80 - 5.20 10 6/uL 08/14/2020 3:36 AM [facility] Hemoglobin 13.2 12.0 - 15.6 g/dL 08/14/2020 3:36 AM [facility] Hematocrit 39.3 35.0 - 45.0 % 08/14/2020 3:36 AM [facility] MCV 96.3 80.7 - 98.3 fL 08/14/2020 3:36 AM [facility] MCH 32.4 26.7 - 34.0 pg 08/14/2020 3:36 AM [facility] MCHC 33.6 30.8 - 35.9 g/dL 08/14/2020 3:36 AM [facility] Platelet Count 178 150 - 400 10 3/uL 08/14/2020 3:36 AM [facility] RDW-SD 45.5 36.0 - 50.0 fL 08/14/2020 3:36 AM [facility] RDW-CV 12.8 11.2 - 14.8 % 08/14/2020 3:36 AM [facility] MPV 9.7 9.4 - 12.9 fL 08/14/2020 3:36 AM [facility] nRBC Absolute 0.00 0 10 3/uL 08/14/2020 3:36 AM [facility] nRBC Auto 0.0 0 /100 WBC 08/14/2020 3:36 AM [facility] Neutrophils % 77.1(H) 35.0 - 70.0 % 08/14/2020 3:36 AM [facility] Lymphocytes % 13.0(L) 20.0 - 43.0 % 08/14/2020 3:36 AM [facility] Monocytes % 7.7 5.0 - 13.0 % 08/14/2020 3:36 AM [facility] Eosinophils % 1.4 0.0 - 6.0 % 08/14/2020 3:36 AM [facility] Basophil % 0.4 0.0 - 2.0 % 08/14/2020 3:36 AM [facility] Neutrophils Absolute 4.4 1.6 - 7.0 10 3/uL 08/14/2020 3:36 AM [facility] Lymphocyte Absolute 0.7(L) 1.1 - 3.9 10 3/uL 08/14/2020 3:36 AM [facility] Monocytes Absolute 0.44 0.26 - 1.07 10 3/uL 08/14/2020 3:36 AM [facility] Eosinophils Absolute 0.08 0.00 - 0.47 10 3/uL 08/14/2020 3:36 AM [facility] Basophils Absolute 0.02 0.00 - 0.08 10 3/uL 08/14/2020 3:36 AM [facility] Immature Granulocytes % 0.4 0.0 - 1.0 % 08/14/2020 3:36 AM [facility] Immature Granulocytes Absolute 0.02 08/14/2020 3:36 AM [facility] Blood BLOOD SPECIMEN / Unknown Lab Venipuncture / Unknown 08/14/2020 1:35 AM CDT 08/14/2020 3:09 AM T Rich Paul MD LAB - HEMATOLOGY ORDERABLES [facility] [address] [place] [address], [facility] [phone] * (ABNORMAL) BASIC METABOLIC PANEL (CALCIUM TOTAL) (08/14/2020 1:35 AM CDT) Only the most recent of2 resultswithin the time period is included. BUN 18 7 - 26 mg/dL 08/14/2020 3:42 AM [facility] Creatinine 0.82 0.56 - 0.96 mg/dL 08/14/2020 3:42 AM [facility] Sodium 139 136 - 145 mmol/L 08/14/2020 3:42 AM [facility] Potassium 4.0 3.5 - 4.5 mmol/L 08/14/2020 3:42 AM [facility] Chloride 103 98 - 107 mmol/L 08/14/2020 3:42 AM [facility] CO2 25 22 - 29 mmol/L 08/14/2020 3:42 AM [facility] Glucose 82 70 - 115 mg/dL 08/14/2020 3:42 AM [facility] Calcium 8.8 8.4 - 10.2 mg/dL 08/14/2020 3:42 AM [facility] Anion Gap 15 8 - 18 08/14/2020 3:42 AM [facility] BUN/Creatinine Ratio 22 7 - 23 08/14/2020 3:42 AM [facility] Osmolality Calculated 289 270 - 300 mOsm/kg 08/14/2020 3:42 AM [facility] eGFR by CKD-EPI 72(L) >=90 mL/min/1.7 3 m2 08/14/2020 3:42 AM [facility] Blood BLOOD SPECIMEN / Unknown Lab Venipuncture / Unknown 08/14/2020 1:35 AM CDT 08/14/2020 3:10 AM CDT Rich Paul MD LAB - CHEMISTRY ORDERABLES [facility] [address] [place] [address], [facility] [phone] * PTT [facility] (08/13/2020 9:55 AM CDT) APTT 28.7 23.0 - 38.4 Seconds 08/13/2020 10:22 AM CDT [facility] Comment:Suggested therapeuti c range for full dose I.V. unfractionated heparin therapy for venous thromboembolism is 71 to 109 seconds. Blood BLOOD SPECIMEN / Unknown Lab Venipuncture / Unknown 08/13/2020 9:55 AM CDT 08/13/2020 10:13 AM CDT Kailey DURAN LAB - COAGULATION OR DERABLES Performing Organization Address City/[facility]/ZIP Co de Phone Number [address] [address], [facility] [phone] * PT-INR [facility] (08/13/2020 9:55 AM CDT) PT 12.6 12.1 - 14.8 Seconds 08/13/2020 10:22 AM CDT [facility] INR 1.0 See Comment 08/13/2020 10:22 AM CDT [facility] Comment:The suggested therap eutic range for standard coumadin (warfarin) therapy is an INR of 2.0-3.0. For high-risk patients (Mechanical Mitral Valve Prosthesis, etc.), the suggested prophylactic therapeutic range is an INR of 2.5-3.5. Blood BLOOD SPECIMEN / Unknown Lab Venipuncture / Unknown 08/13/2020 9:55 AM CDT 08/13/2020 10:13 AM CDT Kailey DURAN LAB - COAGULATION OR DERABLES [address] [address], [facility] [phone] * SARS-COV-2 (COVID-19)+INFLU A+B PCR RAPID (08/12/2020 5:02 PM CDT) COVID-19 PCR Not detected Not detected 08/13/19 5:35 PM CDT [facility] Influenza A Rapid LACIE Not Detected Not Detected 08/12/2020 5:35 PM CDT [facility] Influenza B LACIE Rapid Not Detected Not Detected 08/12/2020 5:35 PM CDT [facility] Microbiology SPECIMEN FROM NASOPHARYNGEAL STRUCTURE / Unknown Collection / Unknown 08/12/2020 5:02 PM CDT 08/12/2020 5:11 PM CDT Narrative [facility] - 08/12/2020 5:35 PM CDT Influenza assay [...] acid amplification assay performance was validated by [facility]. This test has been authorized by the [...] Kent MD LAB - MICROBIOLOGY O MARC [facility] [address] [place] [address], [facility] [phone] * MRI THORACIC SPINE WO CONTRAST (08/12/2020 [...] cord edema. Dictated by Eliot Vickers MD (associate professor of radiology). I, Dr. BETH DOMINGUEZ have personally reviewed [...] cord edema. Dictated by Eliot Vickers MD (associate professor of radiology). I, Dr. BETH DOMINGUEZ have personally reviewed and interpreted this examination/study. This report was electronically signed by BETH DOMINGUEZ on 08/12/2020 10:54AM . Mildred Floyd MD MR ORDERABLES * MAMMOGRAM DIGITAL SCREENING BILATERAL G0202 (02/25/2015 1:48 PM WASTE WATER WORKER) Only the most recent of2 resultswithin the time period is included. Anatomical Region Laterality Modality Breast Bilateral Mammography 02/26/2015 8:08 AM WASTE WATER WORKER Impressions 02/26/2015 8:10 AM WASTE WATER WORKER No mammographic evidence of malignancy. BI-RADS Category (1): Negative examination. RECOMMENDATION: Resume yearly mammography schedule or return sooner if clinically indicated. Narrative 02/26/2015 8:10 AM WASTE WATER WORKER BILATERAL DIGITAL SCREENING MAMMOGRAPHY HISTORY: Screening [...] microcalcifications, or other abnormality seen. Lisa Gramajo FRANCHISE SPECIALIST-GLORY HOLE TENDER MAMMO OR DERABLES * DEXA BONE DENSITY AXIAL SKELETON (01/15/2014 10:36 AM WASTE WATER WORKER) Anatomical Region Laterality Modality Mammography 01/15/2014 2:35 PM WASTE WATER WORKER Impressions 01/15/2014 2:36 PM WASTE WATER WORKER LUMBAR: Normal Range. FEMUR: Normal Range. Narrative 01/15/2014 2:36 PM WASTE WATER WORKER BONE MINERAL DENSITY STUDY: TECHNIQUE: Standard DEXA examination. Exam Location: [facility]: [employer] Horizon A ([place] 5.5.2) [facility]: [employer] Discovery SL QDR ([place] 3.4) [facility] [address]: [facility] INDICATION: Post menopausal woman COMPARISON: No [...] FRAX Calculation - 10 year Fracture Risks ([facility] Only): Frax Version 3.08: probability calculated for untreated patient. Major osteoporotic fracture, %: 7.2 Hip fracture, %: 0.4 Procedure Note Debbi Arita MD - 01/15/2014 BONE MINERAL DENSITY STUDY: TECHNIQUE: Standard DEXA examination. Exam Location: [facility]: [employer] Horizon A ([place] 5.5.2) [facility]: [employer] SL QDR ([place] 3.4) [facility] [address]: [employer] 2005 INDICATION: Post menopausal woman COMPARISON: No [...] FRAX Calculation - 10 year Fracture Risks ([facility] Only): Frax Version 3.08: probability calculated for untreated patient. Major osteoporotic fracture, %: 7.2 Hip fracture, %: 0.4 IMPRESSION LUMBAR: Normal Range. FEMUR: Normal Range. Lisa Gramajo FRANCHISE SPECIALIST-GLORY HOLE TENDER DEXA ORD ERABLES * MRI FOOT NON IV CONTRAST RIGHT (01/16/2013 9:30 AM WASTE WATER WORKER) Anatomical Region Laterality Modality Magnetic Resonan ce 01/16/2013 1:01 PM WASTE WATER WORKER Narrative 01/16/2013 1:05 PM WASTE WATER WORKER Examination: MRI right foot. Indication for [...] dislocation. Carlton Garcia MD DIAGNOSTIC IMAGING O [facility] Care Teams Glass Products Inspector Relationship Specialty Start Date End Date Den Arias MD PCP - General Internal Medicine 01/11/14
--- OUTSIDE RECORDS SUMMARY | 2024-05-08 18:37 | XMS_ITS | Encounter Summary ---
Author Organization [facility] Health Address [address] [place] [address] Care Team Providers Care Search Engine Optimization Specialist Name Role Phone Den Arias MD Primary Care Provider [phone] Encounter Details Date Type Department Care Team (Late st Contact Info) Description 11/03/2020 [facility] Outpatient Visit [facility] [address] [place] [address] Devin Murray MD [address] [address] Social History Tobacco Use Types [...] on filedocumented in this encounter Care Teams Search Engine Optimization Specialist Relationship Specialty Start Date End Date Den Arias MD PCP - General Internal Medicine 01/11/14 documented as of this encounter
--- OUTSIDE RECORDS SUMMARY | 2024-05-08 18:37 | XMS_ITS | Encounter Summary ---
Author Organization [facility] Health Address [address] [place] [address] Care Team Providers Care Bone Cooking Operator Name Role Phone Den Arias MD Primary Care Provider [phone] Encounter Details Date Type Department Care Team (Late st Contact Info) Description 11/03/2020 [facility] Outpatient Visit [facility] [address] [place] [address] Mayra Bass, GRAIN UNLOADER MACHINE-COMMUNICATION SKILLS INSTRUCTOR [address] [facility] [place] [address] Social History Tobacco Use Types Packs/Day Years [...] on filedocumented in this encounter Care Teams Bone Cooking Operator Relationship Specialty Start Date End Date Den Arias MD PCP - General Internal Medicine 01/11/14 documented as of this encounter
--- OUTSIDE RECORDS SUMMARY | 2024-05-08 18:37 | XMS_ITS | Clinical Summary ---
Author Organization [facility] Care Team Providers Care Case Loader Operator Name Role Phone Ervin Hernandez MD Primary Care Provider [phone] Allergies No known active allergies Medications lisinopril-hydr oCHLOROthiazide (ZESTORETIC) 20-25 mg per tablet Take 1 tablet by mouth daily 10/30/2022 Active CeleBREX 200 mg capsule Take 1 capsule (200 mg total) by mouth daily 10/18/2022 Active Active Problems Problem Noted Date Diagnosed Date Peripheral vascular disease 12/24/2022 Assessment & Plan (01/21/2023 2:19 PM BLOWER OPERATOR): No evidence of peripheral vascular disease. [...] 12/24/2022 Assessment & Plan (01/21/2023 2:19 PM BLOWER OPERATOR): Stable continue lisinopril hydrochlorothiazide. Assessment & Plan (12/24/2022 2:49 PM CDT): Impression: Chronic stable. Plan: Continue Zestoretic Osteoarthritis 04/17/2012 Medical History Medical History Date Comments Spinal fracture of T10 vertebra (CMS/HCC) ([facility]) 2019 Social History Tobacco Use Types Packs/Day [...] 59.9 kg (132 lb) 01/19/2023 10:57 AM BLOWER OPERATOR Height 154.9 cm (5' 1 ) 01/19/2023 10:57 AM BLOWER OPERATOR Body Mass Index 24.94 01/19/2023 10:57 AM BLOWER OPERATOR Plan of Treatment Health Maintenance Due Date [...] Completed 02/02/2019, 12/13 Insurance [employer] MEDICARE [facility] MEDIC[facility] Address: [facility] [id number] [place] [phone] Care Teams Case Loader Operator Relationship Specialty Start Date End Date Ervin Hernandez MD [address] [facility] [place] [id number] PCP - General Family Medicine 01/14/23
== END 2024-05-08 16:24 | disposition home or self-care (01) ==
PROVIDERS: PCP Nurse Practitioner Family; Visit Provider Internal Medicine Nephrology
DX: I12.9 Hypertensive chronic kidney disease with stage 1 through stage 4 chronic kidney disease, or unspecified chronic kidney disease (principal); N18.32 Chronic kidney disease, stage 3b
CPT/HCPCS: 82570; 84156

== ENCOUNTER 2024-08-23 10:26 | Outpatient (CLI) | payer MEDICARE, SELFPAY ==
--- NOTE | ~2024-08-23 | XR_ITS ---
Clinical Indication: Shortness of breath PA and lateral views of the chest: Comparison: 12/01/2023 Findings: The lungs are clear, without evidence of focal consolidation or pleural effusion. Cardiome diastinal silhouette is within normal limits. T12 vertebroplasty present.. Impression: Clear lungs. Reviewed, dictated and finalized at location . Impression: Clear lungs.
--- NOTE | ~2024-08-23 | XR_ITS ---
XR abdomen/kub 1V 08/23/2024 11:44 Indication: Abdomen pain Procedure: KUB Comparison: No prior studies for comparison. Findings: Lung bases unremarkable. Nonobstructive bowel gas pattern. There are cholecystectomy clips. There are vertebroplasty changes in T12. Moderate lumbar spondylosis. There is a right total hip art hroplasty. Impression: 1: No acute abdominal abnormality. Reviewed, dictated and finalized at location [] Impression: 1: No acute abdominal abnormality.
--- OUTSIDE RECORDS SUMMARY | 2024-08-23 11:22 | XMS_ITS | Clinical Summary ---
Author Organization [facility] Address [address] [place] [address] Care Team Providers Care Associate Financial Analyst Name Role Phone Den Arias MD Primary Care Provider [phone] Source Comments [facility],non-owned Affiliates and Associated Physician Practices is amultiple site organization consisting of ambulatory clinics and hospital sitesin [place], [place], [place]. This disclosure is being madepursuant to the Care Everywhere program and may not contain all information available regarding this patient. Last updated 17.[facility] Allergies No known active allergies Medications * Be aware that medications may not be up to date on this document. Alwaysverify current medications with the patient. lisinopril (PRINIVIL; ZESTRIL) 20 MG tabletIndication s:Hypertension Take 20 mg by mouth once daily Reasons: High Blood Pressure Disorder Active celecoxib (CELEBREX) 200 MG capsule Take 200 mg by mouth once daily Active Multiple Vitamins-Mineral s (ONE-A-DAY WOMENS 50+ ADVANTAGE PO) Active HYDROcodone-acet aminophen (NORCO) 5-325 MG tabletIndication s:Thoracic compression fracture, closed, initial encounter ([facility]) Take 1 (one) tablet by mouth every 6 hours as needed for Pain 20 tablet 1 Active Additional Information Patient not taking.Reported on 10/13/2020 traMADol (ULTRAM) 50 MG tablet Take 50 mg by mouth every 6 hours as needed Active Cholecalciferol (VITAMIN D3) 1.25 MG (20696 UT) capsule Take 50,000 Units by mouth every 7 days Active methylPREDNISolo ne (MEDROL DOSEPAK) 4 MG tablet Take by mouth as directed Take as directed by mouth per package instructions. 21 tablet Active Additional Information Patient not taking.Reported on 11/13/2020 lidocaine (LMX 4) 4 % cream APPLY TO SKIN UP TO FOUR TIMES DAILY NEEDED TO REDUCE PAIN 15 g Active Active Problems Problem Noted Date Diagnosed Date Back pain of thoracolumbar region 11/03/2020 Closed fracture of twelfth thoracic vertebra 03/2020 Leg pain 12/14/2010 Thoracic compression fracture, closed, initial e ncounter Radicular pain of thoracic region Immunizations Immunization Administration Dates Next Due INFLUENZA VACCINE, QUADR. [...] more drinks on one occasion? Never 08/12/2020 Comments No Sex and Gender Information Value Date Recorded Sex Assigned at Not on file Legal Sex Female 5:57 AM PSYCHOLOGY PROFESSOR Gender Identity Not on file Sexual Orientation [...] 12:57 PM CDT Height 154.9 cm (5' 1) 11/03/2020 12:57 PM CDT Body Mass Index [...] Td or Tdap) 12/14/2020 12/14/2010 COVID-19 VACCINE ( - season) 2023 11/30/2021 Respiratory Syncytial Virus (RSV) Vaccine Pt: or over 60 yrs (1 - 1-dose 75+ series) 01/26/2024 DEPRESSION SCREENING 03/14/2024 MEDICARE AWV CALENDAR YEAR 2024 INFLUENZA VACCINE (Season Ended) 2024 11/30/2021, 12/16/2020, 01/13/2020, Additional history exists BONE DENSITY TESTING Completed 01/15/2014 HEPATITIS B VACCINE Aged Out No longe r eligible based on patient's age to complete this topic HIB VACCINE Aged Out No longer eligi ble based on patient's age to complete this topic HPV VACCINE Aged Out No longer eligi ble based on patient's age to complete this topic MENINGOCOCCAL (Group B) VACCINE SHARED DECISION-MAKING Aged Out No longer eligible based on patient's age to complete this topic MENINGOCOCCAL GROUPS A/C/Y/W VACCINE Aged Out No longer eligible based on patient's age to complete this topic Medical Devices Implanted Type Area Ell Teacher Device Identifier Shelf Expiration Date Model / Serial / Lot Cmnt Bone Kyphon Xpede Spnl Mxr Implanted:Qty: 1 on 08/14/2020 by Rich Paul MD at [facility] N/A: Thoracic [employer] 05/11/2028 [id number] / / [id number] Description:bone cement Procedures Procedure Name Priority Date/Time Associated Diagnosis Comments MAMMO BILAT SCREENING Routine 02/25/2015 1:48 PM PSYCHOLOGY PROFESSOR Visit for screening mammogram DEXA BONE DENSITY AXIAL SKELETON Routine 01/15/2014 10:36 AM PSYCHOLOGY PROFESSOR Screening for osteoporosis from Last 3 Months or Most Recently Relevant to Health Maintenance Results * MAMMOGRAM DIGITAL SCREENING BILATERAL G0202 (02/25/2015 1:48 PM PSYCHOLOGY PROFESSOR) Anatomical Region Laterality Modality Breast Bilateral Mammography 02/26/2015 8:08 AM PSYCHOLOGY PROFESSOR Impressions 02/26/2015 8:10 AM PSYCHOLOGY PROFESSOR No mammographic evidence of malignancy. BI-RADS Category (1): Negative examination. RECOMMENDATION: Resume yearly mammography schedule or return sooner if clinically indicated. Narrative 02/26/2015 8:10 AM PSYCHOLOGY PROFESSOR BILATERAL DIGITAL SCREENING MAMMOGRAPHY HISTORY: Screening mammogram. [...] microcalcifications, or other abnormality seen. Lisa Gramajo INDUSTRIAL RELATIONS COMMISSIONER-PLASTERER APPRENTICE MAMMO ORDERABLES Final Result * DEXA BONE DENSITY AXIAL SKELETON (01/15/2014 10:36 AM PSYCHOLOGY PROFESSOR) Anatomical Region Laterality Modality Mammography 01/15/2014 2:35 PM PSYCHOLOGY PROFESSOR Impressions 01/15/2014 2:36 PM PSYCHOLOGY PROFESSOR LUMBAR: Normal Range. FEMUR: Normal Range. Narrative 01/15/2014 2:36 PM PSYCHOLOGY PROFESSOR BONE MINERAL DENSITY STUDY: TECHNIQUE: Standard DEXA examination. Exam Location: [facility]: [employer] A (Homer 5.5.2) [facility]: [employer] SL QDR (Homer 3.4) [facility]: TiVUS 2005 INDICATION: Post menopausal woman COMPARISON: No [...] FRAX Calculation - 10 year Fracture Risks ([facility] Only): Frax Version 3.08: probability calculated for untreated patient. Major osteoporotic fracture, %: 7.2 Hip fracture, %: 0.4 Procedure Note Debbi Arita MD - 01/15/2014 BONE MINERAL DENSITY STUDY: TECHNIQUE: Standard DEXA examination. Exam Location: [facility]: [employer] A (Homer 5.5.2) [facility]: [employer] SL QDR (Homer 3.4) [facility]: TiVUS 2005 INDICATION: Post menopausal woman COMPARISON: No [...] FRAX Calculation - 10 year Fracture Risks ([facility] Only): Frax Version 3.08: probability calculated for untreated patient. Major osteoporotic fracture, %: 7.2 Hip fracture, %: 0.4 IMPRESSION LUMBAR: Normal Range. FEMUR: Normal Range. Lisa WorthingtonRaudelAleksey INDUSTRIAL RELATIONS COMMISSIONER-PLASTERER APPRENTICE DEXA ORDERABLES Final Result from Last 3 Months or Most Recently Relevant to Health Maintenance Insurance AETNA MEDICARE ADV AET Advance Directives * Full Code (Latest Code Status on File) Date Activated Date Inactivated Comments 08/12/2020 10:49 PM 08/14/2020 5:55 PM Care Teams Associate Financial Analyst Relationship Specialty Start Date End Date Den Arias MD PCP - General Internal Medicine 01/11/14
--- OUTSIDE RECORDS SUMMARY | 2024-08-23 11:22 | XMS_ITS | Referral Summary ---
Author Organization [facility] Care Team Providers Care Barn Hand Name Role Phone Ervin Hernandez MD Primary Care Provider [phone] Allergies No known active allergies Medications lisinopril-hydr oCHLOROthiazide (ZESTORETIC) 20-25 mg per tablet Take 1 tablet by mouth daily 10/30/2022 Active CeleBREX 200 mg capsule Take 1 capsule (200 mg total) by mouth daily 10/18/2022 Active Active Problems Problem Noted Date Diagnosed Date Peripheral vascular disease 12/24/2022 Assessment & Plan (01/21/2023 2:19 PM DIRECTOR QUALITY ASSURANCE): No evidence of peripheral vascular disease. I [...] 12/24/2022 Assessment & Plan (01/21/2023 2:19 PM DIRECTOR QUALITY ASSURANCE): Stable continue lisinopril hydrochlorothiazide. Assessment & Plan [...] 59.9 kg (132 lb) 01/19/2023 10:57 AM DIRECTOR QUALITY ASSURANCE Height 154.9 cm (5' 1) 01/19/2023 10:57 AM DIRECTOR QUALITY ASSURANCE Body Mass Index 24.94 01/19/2023 10:57 AM DIRECTOR QUALITY ASSURANCE Plan of Treatment Not on file Insurance [facility] MEDICARE [facility] Care Teams Barn Hand Relationship Specialty Start Date End Date Ervin Hernandez MD [facility] [address] [address] [place] [phone] PCP - General Family Medicine 01/14/23
--- OUTSIDE RECORDS SUMMARY | 2024-08-23 11:22 | XMS_ITS | Encounter Summary ---
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 No / Unsure 10/13/2020 2:46 PM CDT documented as of this encounter Functional Status * Is person deaf or have serious hearing difficulty? Answer Date of Assessment Author No 08/12/2020 9:52 PM CDT Mandy Elliott RN * Is person blind or have serious difficulty seeing? Answer Date of Assessment Author No 08/12/2020 9:52 PM CDT Mandy Elliott RN * Does person have serious difficulty walking/climbing stairs? Answer Date of Assessment Author Yes 08/12/2020 9:52 PM CDT Mandy Elliott RN * Does person have difficulty dressing/bathing? Answer Date of Assessment Author No 08/12/2020 9:52 PM CDT Mandy Elliott RN * Does person have difficulty doing errands alone? Answer Date of Assessment Author No 08/12/2020 9:52 PM CHRIST Mandy Elliott RN documented as of this encounter Mental Status * Does person have difficulty concentrating/remembering/making decisions? Answer Entry Date Author No 08/12/2020 9:52 PM Mandy Nunez RN documented in this encounter Plan of Treatment Not on file documented as of this encounter Visit Diagnoses Not on filedocumented in this encounter Care Teams Screw Machine Tool Setter Relationship Specialty Start Date End Date Den Arias MD PCP - General Internal Medicine 01/11/14 documented as of this encounter
--- OUTSIDE RECORDS SUMMARY | 2024-08-23 11:22 | XMS_ITS | Clinical Summary ---
Author Organization [facility] Address [address] [place] [address] [place] [address] Care Team Providers Care Water Treatment Plant Repairer Name Role Phone Unavailable Primary Care Provider Unavailabl e Social History Tobacco Use Types Packs/Day Years Used Date Smoking Tobacco: Never Assessed Comments Unknown Sex and Gender Information Value Date Recorded Sex Assigned at Not on file Legal Sex Female 7:39 PM SPRING PRODUCTION SUPERVISOR Gender Identity Not on file Sexual Orientation Not on file Plan of Treatment Health Maintenance Due Date Last Done Comments COLORECTAL SCREENING 1994 Colorectal Cancer Screening 1994 FIT-DNA Q 3 years 1994 FIT/FOBT Q 1 year 1994 Flex Sig/CT Colonography Q 5 years 1994 PNEUMOCOCCAL VACCINE 50+ YEA RS (1 of 1 - PCV) 1999 ZOSTER VACCINE (1 of 2) 1999 OSTEOPOROSIS SCREENING 01/15/2019 01/15/2014 DTAP/TDAP/TD VACCINES (2 - Td or Tdap) 12/14/2020 INFLUENZA VACCINE (#1) 2023 11/30/2021, 2019 RSV VACCINE (60+ or ) (1 - 1-dose 75+ series) 01/26/2024 Insurance AETNA O MCR
--- OUTSIDE RECORDS SUMMARY | 2024-08-23 11:22 | XMS_ITS | Encounter Summary ---
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 Answer Date of Assessment Author No 08/12/2020 9:52 PM CHRIST Mandy Elliott RN * Does person have serious difficulty walking/climbing stairs? Answer Date of Assessment Author Yes 08/12/2020 9:52 PM Mandy Nunez RN * Does person have difficulty dressing/bathing? Answer Date of Assessment Author No 08/12/2020 9:52 PM Mandy Nunez RN * Does person have difficulty doing errands alone? Answer Date of Assessment Author No 08/12/2020 9:52 PM Mandy Nunez RN documented as of this encounter Mental Status * Does person have difficulty concentrating/remembering/making decisions? Answer Entry Date Author No 08/12/2020 9:52 PM Mandy Nunez RN documented in this encounter Plan of Treatment Not on file documented as of this encounter Visit Diagnoses Not on filedocumented in this encounter Care Teams Portable Sawyer Relationship Specialty Start Date End Date Den Arias MD PCP - General Internal Medicine 01/11/14 documented as of this encounter
--- OUTSIDE RECORDS SUMMARY | 2024-08-23 11:22 | XMS_ITS | Clinical Summary ---
Author Organization [facility] Health[facility] Care Team Providers Care Skin Specialist Name Role Phone Ervin Hernandez MD Primary Care Provider [phone] Allergies No known active allergies Medications lisinopril-hydr oCHLOROthiazide (ZESTORETIC) 20-25 mg per tablet Take 1 tablet by mouth daily 10/30/2022 Active CeleBREX 200 mg capsule Take 1 capsule (200 mg total) by mouth daily 10/18/2022 Active Active Problems Problem Noted Date Diagnosed Date Peripheral vascular disease 12/24/2022 Assessment & Plan (01/21/2023 2:19 PM WHEEL TRUING MACHINE TENDER): No evidence of peripheral vascular disease. I [...] 12/24/2022 Assessment & Plan (01/21/2023 2:19 PM WHEEL TRUING MACHINE TENDER): Stable continue lisinopril hydrochlorothiazide. Assessment & Plan (12/24/2022 2:49 PM CDT): Impression: Chronic stable. Plan: Continue Zestoretic Osteoarthritis 04/17/2012 Medical History Medical History Date Comments Spinal fracture of T10 vertebra (HCC) 2019 Social History Tobacco Use Types Packs/Day [...] 59.9 kg (132 lb) 01/19/2023 10:57 AM WHEEL TRUING MACHINE TENDER Height 154.9 cm (5' 1) 01/19/2023 10:57 AM WHEEL TRUING MACHINE TENDER Body Mass Index 24.94 01/19/2023 10:57 AM WHEEL TRUING MACHINE TENDER Plan of Treatment Health Maintenance Due Date [...] 01/08/2021, 05/02/2020, Additional history exists Influenza Vaccine (Season Ended) 2024 11/30/2021, 11/30/2021, 12/16/2020, Additional history exists Pneumococcal vaccine 65+ Completed 02/02/2019, 12/13 Insurance AETNA MEDICARE GOLD Care Teams Skin Specialist Relationship Specialty Start Date End Date Ervin Hernandez MD [facility] [address] [place] [address] PCP - General Family Medicine 01/14/23
[2024-08-23 11:38] LABS: Alanine Aminotransferase 80 U/L (6-35); Albumin Level 3.8 g/dL (3.5-5.1); Alkaline Phosphatase 133 U/L (38-126); Anion Gap 8 mmol/L (4-12); Aspartate Amino Transferase 82 U/L (14-36); Bilirubin,Total 0.6 mg/dL (0.2-1.3); Blood Urea Nitrogen 27 mg/dL (7-17); Calcium 8.7 mg/dL (8.4-10.2); Carbon Dioxide 22 mmol/L (22-30); Chloride 106 mmol/L (98-107); Estimated Glomerular Filt Rate 25; Glucose 104 mg/dL (65-110); Sodium 136 mmol/L (137-145); Total Protein 7.4 g/dL (6.3-8.2)
[2024-08-23 11:47] LABS: NT Pro B Type Natriuretic Pept 294 pg/mL (19.9-100)
[2024-08-23 12:14] LABS: Iron 162 ug/dL (37-170)
[2024-08-23 12:23] LABS: Percent Iron Saturation 55 % (20-50)
[2024-08-23 12:26] LABS: Basophils Absolute Auto 0.1 K/mm3 (0.0-0.1); Eosinophils Absolute Auto 0.1 K/mm3 (0-0.3); Eosinophils Percent Auto 0.7 % (0-4.4); Hematocrit 36.4 % (37.0-47.0); Hemoglobin 12.7 g/dL (12.0-15.0); Immature Granulocyte Absolute 0.03 K/mm3 (0.00-0.031); Immature Granulocyte Percent A 0.4 % (0-0.5); Lymphocytes Absolute Auto 3.58 K/mm3 (0.9-3.2); Lymphocytes Percent Auto 48.6 % (18.3-44.2); Mean Corpuscular HGB Conc 34.9 g/dl (32-36); Mean Corpuscular Hemoglobin 34.6 pg (26-34); Mean Corpuscular Volume 99.2 fl (80-100); Mean Platelet Volume 8.9 fl (7.4-10.4); Monocytes Absolute Auto 0.6 K/mm3 (0.1-0.6); Monocytes Percent Auto 7.6 % (2.6-8.5); Neutrophils Absolute Auto 3.1 K/mm3 (1.3-6.7); Neutrophils Percent Auto 41.7 % (45.5-73.1); Platelet Count Result 273 k/mm3 (150-375); Red Blood Count 3.67 M/mm3 (4.2-5.4); Red Cell Distribution Width 19.7 % (11.5-14.5); White Blood Count 7.4 K/mm3 (4.5-10.0)
[2024-08-23 12:50] LABS: Atypical Lymphocytes Present; Platelet Estimate Adequate (Adequate); Schistocytes None Seen
== END 2024-08-23 10:27 | disposition home or self-care (01) ==
PROVIDERS: PCP Nurse Practitioner Family; Visit Provider Nurse Practitioner Family
DX: R06.02 Shortness of breath (principal); R19.7 Diarrhea, unspecified; K59.00 Constipation, unspecified; I12.9 Hypertensive chronic kidney disease with stage 1 through stage 4 chronic kidney disease, or unspecified chronic kidney disease; N18.4 Chronic kidney disease, stage 4 (severe); R42 Dizziness and giddiness
CPT/HCPCS: 36415; 71046; 74018; 80053; 82728; 83540; 83550; 83880; 85025

== ENCOUNTER 2024-12-21 12:43 | Outpatient (CLI) | payer MEDICARE, SELFPAY ==
[2024-12-21 13:54] LABS: Albumin Level 3.7 g/dL (3.5-5.1); Anion Gap 6 mmol/L (4-12); Blood Urea Nitrogen 17 mg/dL (7-17); Calcium 9.0 mg/dL (8.4-10.2); Carbon Dioxide 27 mmol/L (22-30); Chloride 105 mmol/L (98-107); Estimated Glomerular Filt Rate 40; Glucose 118 mg/dL (65-110); Potassium 3.8 mmol/L (3.4-5.0); Sodium 138 mmol/L (137-145)
[2024-12-21 13:56] LABS: Total Protein Urine Random 21 mg/dL; Ur Ttl Prot Creatinine Ratio 0.17 mg/mg (0-0.20)
[2024-12-21 14:08] LABS: Parathyroid Intact 37.0 pg/mL (14.5-75.2)
== END 2024-12-21 12:44 | disposition home or self-care (01) ==
PROVIDERS: PCP Family Medicine; Visit Provider Internal Medicine Nephrology
DX: I12.9 Hypertensive chronic kidney disease with stage 1 through stage 4 chronic kidney disease, or unspecified chronic kidney disease (principal); N18.32 Chronic kidney disease, stage 3b; N25.81 Secondary hyperparathyroidism of renal origin; E59 Dietary selenium deficiency
CPT/HCPCS: 36415; 80069; 82306; 82570; 83970; 84156

== ENCOUNTER 2025-02-13 10:36 | Outpatient (CLI) | payer MEDICARE, SELFPAY ==
--- NOTE | ~2025-02-13 | MR_ITS ---
EXAMINATION: MR thoracic spine wo con DATE: 02/13/2025 11:34 INDICATION: Thoracic spine pain. TECHNIQUE: Magnetic resonance imaging (MRI) of the thoracic spine was performed without intravenous contrast. COMPARISON: Thoracic spine MRI 12/15/2023 FINDINGS: There is a chronic burst fracture of T12 with changes of vertebroplasty, retropulsion of bone 4 mm into central spinal canal, and focal kyphosis. There is mildly decreased disc height at T11-T12. There is multilevel severe facet joint osteoarthritis. At T11-T12, the disc is bulging with super imposed central extrusion and mild central canal stenosis. At T12-L1, there is a left central extrusion with mild central canal stenosis. There is multilevel mild neural foraminal stenosis on either side. On the right, there is moderate neural foraminal stenosis at T10-T11. The spinal cord signal intensity is normal. The conus medullaris is at L1. IMPRESSION: 1. Stable moderate right neural foraminal stenosis at T10-T11. Otherwise mild thoracic spondylosis. Reviewed, dictated and finalized at location E. CCO PRIMER MACHINE OPERATOR IMPRESSION: 1. Stable moderate right neural foraminal stenosis at T10-T11. Otherwise mild t horacic spondylosis.
== END 2025-02-13 10:37 | disposition home or self-care (01) ==
LOC: MICIMG 10:36
PROVIDERS: PCP Nurse Practitioner Family; Visit Provider Physician Assistant
DX: M48.04 Spinal stenosis, thoracic region (principal); M47.814 Spondylosis without myelopathy or radiculopathy, thoracic region; G89.29 Other chronic pain; M54.6 Pain in thoracic spine
CPT/HCPCS: 72146